=== PATIENT | male | born 1950 | race Caucasian/White ===

== ENCOUNTER 2016-08-08 15:32 | Inpatient (IN) | payer MEDICARE, MEDICAID ==
--- NOTE | 2016-08-08 16:04 | ED Physician Chart ---
Chief Complaint/HPI - Patient Information Date Seen:: 08/08/16 Time Seen:: 15:50 Allergies:: Allergies Allergy/AdvReac Type Severity Reaction Status Date / Time Penicillins [PCN] Allergy Verified 08/08/16 15:36 Vitals:: Vital Signs - 8 hr 08/08/16 08/08/16 08/08/16 15:42 15:43 15:54 Temp 98.7 F 98.7 F HR 96 96 RR 16 16 BP 138/64 138/64 138/64 O2 Sat % 98 98 Historian:: Medical Records Review:: Nurse's Note Reviewed, Old Chart Reviewed, Transfer documents Reviewed Review of Systems - Review of Systems General/Constitutional: Fever, Other (THIS PATIENT IS UNABLE TO GIVE A REVIEW OF SYSTEMS) Skin: No skin lesions, No rash, No bruising Head: No headache, No light-headedness Eyes: No loss of vision, No pain, No diplopia ENT: No earache, No nasal drainage, No sore throat, No tinnitus Neck: No neck pain, No swelling, No thyromegaly, No stiffness, No mass noted Cardio Vascular: No chest pain, No palpitations, No PND, No orthopnea, No edema Pulmonary: No SOB, No cough, No sputum, No wheezing GI: No nausea, No vomiting, No diarrhea, No pain, No melena, No hematochezia, No constipation, No hematemesis G/U: No dysuria, No frequency, No hematuria Musculoskeletal: No bone or joint pain, No back pain, No muscle pain Endocrine: No polyuria, No polydipsia Psychiatric: No prior psych history, No depression, No anxiety, No suicidal ideation Hematopoietic: No bruising, No lymphadenopathy Allergic/Immuno: No urticaria, No angioedema Neurological: No syncope, No focal symptoms, No weakness, No paresthesia, No headache, No seizure, No dizziness, No confusion, No vertigo Past Medical History - Past Medical History Obtainable: Yes Past Medical History: Dementia Family History: None Social History: Non Smoker, No Alcohol, No Drug Use, Care Facility Surgical History: None Psychiatricy History: Dementia Family Medical History - Family Member Mother History Unknown: Yes Physical Exam - Physical Examination General/Constitutional: Awake, Well-developed, well-nourished, Alert, No distress, GCS 15, Non-toxic appearing, Ambulatory Head: Atraumatic Eyes: Lids, conjuctiva normal, PERRL, EOMI Skin: Nl inspection, No rash, No skin lesions, No ecchymosis, Well hydrated, No lymphadenopathy ENMT: External ears, nose nl, Nasal exam nl, Lips, teeth, gums nl (TEETH ARE IN POOR REPAIR) Neck: Nontender, Full ROM w/o pain, No JVD, No nuchal rigidity, No bruit, No mass, No stridor Respiratory: Nl effort/Exclusion, Clear to Auscultation, No Wheeze/Rhonchi/Rales Cardio Vascular: RRR, No murmur, gallop, rubs, NL S1 S2 GI: No tenderness/rebounding/guarding, No organomegaly, No hernia, Normal BS's, Nondistended, No mass/bruits, No McBurney tenderness : No CVA tenderness Extremities: No tenderness or effusion, Full ROM, normal strength in all extremities, No edema, Normal digits & nails Other Extremities comments:: CHRONICALLY DISLOCATED LEFT SHOULDER Neuro/Psych: Alert/oriented, DTR's symmetric, Normal sensory exam, Normal motor strength, Judgement/insight normal, Mood normal, Normal gait, No focal deficits Misc: normal gait, Normal back, No paraspinal tenderness Labs/Radiology/EKG Results - Lab Results Results: Abnormal Lab Results 08/08/16 08/08/16 08/08/16 15:55 15:55 15:55 WBC 7.3 RBC 3.82 Hgb 10.7 L Hct 32.4 L MCV 84.8 MCH 28.1 MCHC Differential 33.1 RDW 16.1 Plt Count 305 MPV 7.6 Neutrophils % 63.0 Lymphocytes % 20.2 Monocytes % 13.4 H Eosinophils % 2.8 Basophils % 0.6 PT 10.5 INR 1.01 PTT (Actin FS) 25.1 L Sodium Potassium Chloride Carbon Dioxide Anion Gap BUN Creatinine Est GFR ( Amer) Est GFR (Non-Af Amer) BUN/Creatinine Ratio Glucose Calcium Total Bilirubin AST ALT Alkaline Phosphatase Troponin I Total Protein Albumin Globulin Albumin/Globulin Ratio Triglycerides 68 Cholesterol 187 LDL Cholesterol Direct 104 HDL Cholesterol 76 TSH Urine Source Urine Color Urine Clarity Urine pH Ur Specific [place] Urine Protein Urine Glucose (UA) Urine Ketones Urine Blood Urine Nitrate Urine Bilirubin Urine Urobilinogen Ur Leukocyte Esterase Urine RBC Urine WBC Ur Epithelial Cells Urine Bacteria Urine Mucus RPR 08/08/16 08/08/16 08/08/16 15:55 15:55 15:55 WBC RBC Hgb Hct MCV MCH MCHC Differential RDW Plt Count MPV Neutrophils % Lymphocytes % Monocytes % Eosinophils % Basophils % PT INR PTT (Actin FS) Sodium 136 Potassium 4.1 Chloride 107 Carbon Dioxide 25.6 Anion Gap 7.5 BUN 24 Creatinine 0.6 L Est GFR ( Amer) > 60.0 Est GFR (Non-Af Amer) > 60.0 BUN/Creatinine Ratio 40.0 Glucose 97 Calcium 9.5 Total Bilirubin 0.3 AST 19 ALT 18 Alkaline Phosphatase 90 Troponin I 0.05 Total Protein 6.6 Albumin 3.6 L Globulin 3.0 Albumin/Globulin Ratio 1.2 Triglycerides Cholesterol LDL Cholesterol Direct HDL Cholesterol TSH Urine Source Urine Color Urine Clarity Urine pH Ur Specific [place] Urine Protein Urine Glucose (UA) Urine Ketones Urine Blood Urine Nitrate Urine Bilirubin Urine Urobilinogen Ur Leukocyte Esterase Urine RBC Urine WBC Ur Epithelial Cells Urine Bacteria Urine Mucus RPR NONREACTIVE 08/08/16 08/08/16 15:55 17:00 WBC RBC Hgb Hct MCV MCH MCHC Differential RDW Plt Count MPV Neutrophils % Lymphocytes % Monocytes % Eosinophils % Basophils % PT INR PTT (Actin FS) Sodium Potassium Chloride Carbon Dioxide Anion Gap BUN Creatinine Est GFR ( Amer) Est GFR (Non-Af Amer) BUN/Creatinine Ratio Glucose Calcium Total Bilirubin AST ALT Alkaline Phosphatase Troponin I Total Protein Albumin Globulin Albumin/Globulin Ratio Triglycerides Cholesterol LDL Cholesterol Direct HDL Cholesterol TSH 0.90 Urine Source CLEAN C Urine Color YELLOW Urine Clarity CLEAR Urine pH 6.0 Ur Specific [place] 1.030 Urine Protein NEGATIVE Urine Glucose (UA) NEGATIVE Urine Ketones NEGATIVE Urine Blood NEGATIVE Urine Nitrate NEGATIVE Urine Bilirubin NEGATIVE Urine Urobilinogen 0.2 Ur Leukocyte Esterase NEGATIVE Urine RBC 0-1 Urine WBC 0-2 Ur Epithelial Cells FEW Urine Bacteria OCCASIONAL Urine Mucus FEW RPR - Radiology Results Results: CHEST X-RAY = NAD - EKG Interpretations EKG Time:: 16:18 Rate & Rhythm: 86 ,SINUS [place]: RIGHT ED Septic Shock - . Is Septic Shock (SBP<90, OR Lactate>4 mmol\L) present?: No - <6hrs of presentation: Vital Signs: Vital Signs - 8 hr 06/09/17 06/09/17 06/09/17 15:42 15:43 15:54 Temp 98.7 F 98.7 F HR 96 96 RR 16 16 BP 138/64 138/64 138/64 O2 Sat % 98 98 Reassessment (Disposition) - Reassessment Reassessment Condition:: Unchanged - Diagnosis Diagnosis:: PSYCHOSIS - Patient Disposition Discharge/Transfer:: Acute Care w/in this hosp Admitting Medical Physician:: Edmar Westfall Admitting Psych Physician:: Lissy Morgan Condition at Disposition:: Unchanged ED Discharge Plan - Patient Disposition Admit/Discharge/Transfer: Acute Care w/in this hosp Condition at Disposition: Unchanged
[2016-08-08 16:06] LABS: % BASOPHILS 0.6 % (0.0-2.0); % EOSINOPHILS 2.8 % (0.0-5.0); % LYMPHOCYTES 20.2 % (20.0-50.0); % MONOCYTES 13.4 % (2.0-10.0); HEMATOCRIT 32.4 % (39.0-49.0); HEMOGLOBIN 10.7 gm/dL (12.6-17.4); MEAN CELL VOLUME 84.8 fl (80-99); MEAN CORPUSCULAR HEMOGLOBIN 28.1 pg (27.0-31.0); MEAN CORPUSCULAR HGB CONC 33.1 pg (28.0-36.0); MEAN PLATELET VOLUME 7.6 fl; NEUTROPHILE ABSOLUTE 4.6 Th/cmm (1.8-8.0); PLATELET COUNT 305 Th/cmm (150-400); RED BLOOD COUNT 3.82 Mil/cmm (3.80-5.80); RED CELL DISTRIBUTION WIDTH 16.1 % (11.5-20.0); WHITE BLOOD COUNT 7.3 Th/cmm (4.8-10.8)
[2016-08-08 16:21] LABS: INR 1.01 (0.5-1.4); PROTHROMBIN TIME (TEST) 10.5 SECONDS (9.5-11.5)
[2016-08-08 16:24] LABS: ALB/GLOB RATIO 1.2 (1.0-1.8); ALKALINE PHOSPHATASE 90 U/L (34-104); ANION GAP 7.5 (7.0-16.0); BILIRUBIN,TOTAL 0.3 mg/dL (0.3-1.0); BUN - UREA NITROGEN 24 mg/dL (7-25); CALCIUM SERUM 9.5 mg/dL (8.6-10.3); CARBON DIOXIDE 25.6 mEq/L (21.0-31.0); CHLORIDE 107 mEq/L (98-107); CREATININE - SERUM 0.6 mg/dL (0.7-1.3); GLUCOSE 97 mg/dL (70-105); POTASSIUM SERUM 4.1 mEq/L (3.5-5.1); SGOT 19 U/L (13-39); SGPT/ALT 18 U/L (7-52); SODIUM SERUM 136 mEq/L (136-145)
[2016-08-08 16:25] LABS: CHOLESTEROL 187 mg/dL (<200); TRIGLYCERIDES 68 mg/dL (<150)
[2016-08-08 17:29] LABS: URINE BILIRUBIN NEGATIVE (NEGATIVE); URINE COLOR YELLOW; URINE GLUCOSE (UA) NEGATIVE (NEGATIVE); URINE KETONE NEGATIVE (NEGATIVE)
[2016-08-08 17:30] LABS: URINE BACTERIA OCCASIONAL /hpf (NONE SEEN); URINE BLOOD NEGATIVE (NEGATIVE); URINE EPITHELIAL CELLS FEW /lpf (FEW); URINE PROTEIN NEGATIVE (NEGATIVE); URINE RBC 0-1 /hpf (0-5); URINE UROBILINOGEN 0.2 E.U./dL (0.2 - 1.0); URINE WBC 0-2 /hpf (0-5)
[2016-08-08 18:27] VITALS: BP 111/49
[2016-08-08] MEDS ORDERED: Maalox 30 mL Cup PO PRN (18:43)
[2016-08-08] MEDS ORDERED: Magnesium Hydroxide (MOM) 30 mL UDC PO PRN (18:43)
[2016-08-09] MEDS ORDERED: Multivitamin Tab PO SCH (09:00)
--- NOTE | 2016-08-09 09:54 | Diagnostic Imaging Report ---
CHEST X-RAY: AP view INDICATION: Cough COMPARISON: None FINDINGS: Mild chronic lung changes. No focal consolidation or effusions. There is faint increase left basal density. Heart size. Atherosclerosis of the aortic arch is noted. Degenerative changes of the spine are noted. IMPRESSION: Faint increased left basal density which may be due to superimposition of bronchovascular structures. Focal infiltrate or other pathology such as a small pulmonary nodule is considered less likely. Correlation with old exams be helpful comparison. Alternatively, a short-term follow-up CT of the chest would provide for additional detail and assessment Atherosclerotic vascular disease. Final results were administered to the referring team on 08/09/2016.
[2016-08-09] MEDS ORDERED: THROAT MM PRN (14:52)
[2016-08-09] MEDS ORDERED: PHENOL MM PRN (14:52)
--- NOTE | 2016-08-09 15:41 | History & Physical ---
ADMIT DATE: 08/08/2016 CHIEF COMPLAINT: Increasing agitation. HISTORY OF PRESENT ILLNESS: This is a 66-year-old male with a history of anemia, thin built from chcf, was admitted secondary to above complaints. The patient complains of dry eyes. Denies chest pain or shortness of breath. PAST MEDICAL HISTORY: As mentioned in history present illness. PAST SURGICAL HISTORY: Status post abdominal surgery ____. ALLERGIES: PENICILLIN. MEDICATIONS: Vitamin C, Motrin, Norvasc, multivitamins, zinc, Ambien. FAMILY HISTORY: Noncontributory. SOCIAL HISTORY: The patient is an avid smoker and drinker. Denies intravenous drug use. The patient ____ without any children. REVIEW OF SYSTEMS: GENERAL: The patient complains of not feeling well. HEENT: No blurred vision or pain. LUNGS: ____ COPD or asthma. The patient ____ smoker. HEART: The patient denies hypertension or coronary artery disease. ABDOMEN: No nausea, vomiting or pain. GENITOURINARY: The patient denies increased frequency or dysuria. NEUROLOGIC: No headache, seizure or syncope. PSYCHIATRIC: Stable. PHYSICAL EXAMINATION: VITAL SIGNS: Blood pressure ____/64, respirations 18, pulse 75, temperature 97.4. GENERAL: Elderly male, appears stated age, seen with ____. NECK: Supple. No mass. LUNGS: Equal breath sounds, otherwise clear to auscultation. HEART: Regular rate and rhythm without appreciable murmurs. ABDOMEN: Soft, nontender. EXTREMITIES: No clubbing, cyanosis. Positive excoriations. NEUROLOGIC: Limited. LABORATORY DATA: Noted WBC 7.8, hemoglobin 10.7, platelets 305. INR 1.01. Sodium 136, potassium 4.1, BUN 24, creatinine 0.6, albumin ____. UA essentially negative. RPR nonreactive. ASSESSMENT AND PLAN: Anemia, low albumin, mild protein-calorie malnutrition, sore throat, gait instability, thin built, dry eyes. ____ hemoglobin and hematocrit. We will provide the patient with ____. We will place the patient on fall precaution. We will provide artificial tears ____. We will continue to follow. Case was discussed with the patient as well as nursing staff. JOB# [id number]
[2016-08-09] MEDS: Artificial Tear Ophth Oint 3.5 Gm Tube EACH EYE SCH (16:19)
--- NOTE | 2016-08-10 04:41 | Admit Criteria Form ---
Admit Criteria Forms - Admit Criteria Diagnosis: PSYCHIATRIC DISORDERS Clinical Indications for Inpatient Care (Place 'X' for any and all applicable criteria): Ongoing inpatient care may be needed for ANY ONE of the following(1)(2)(3)(4)(6) (7)(8): [ ]I. Danger to self or others not manageable at lower level of care. [ ]II. Grave disability (eg, inability to perform self care necessary at lower level of care) [ ]III. Agitation or inappropriate behavior interfering with care for primary condition (eg, attempting to discontinue lines or drains prematurely, unable to cooperate with respiratory care) [X]IV. Severe disability or disorder indicated by ALL of the following: [X]a) Severe behavioral health disorder-related symptoms or condition indicated by ANY ONE of the following: [ ]i) Severe problem with cognition, memory, judgment, or impulse control [X]ii) Severe clinical manifestations (eg, hallucinations, delusions, other acute psychotic symptoms, lloyd, extreme agitation or anxiety) [X]b) Patient management at lower level of care is not feasible until acute intervention or modification is initiated. Extended stay beyond goal length of stay for the primary condition may be indicated when ANY ONE of the following is present: (1)(2)(3)(4): [ ]a) Patient is a danger to self or others and not manageable at lower level of care. [ ]b) Behavior crisis management, including physical or chemical restraints, is required and is not available at a lower level of care. [ ]c) Behavioral symptoms (e.g., agitation, somnolence, inappropriate behavior) are present, and are not manageable at a lower level of care. [ ]d) Patient cannot understand follow-up treatment and crisis plan. [ ]e) Provider and supports are not sufficiently available at lower level of care. [ ]f) Patient cannot participate (e.g., verify absence of plan for harm) and is in needed of monitoring. The original [facility] content created by [facility] has been revised. The portions of the content which have been revised are identified through the use of italic text or in bold, and [facility] has neither reviewed nor approved the modified material. All other unmodified content is copyright [facility]. Please see references footnoted in the original [facility] edition 2016
--- NOTE | 2016-08-10 06:32 | Consultation ---
DATE OF CONSULTATION: 08/09/[address] Chowdhury covering for Dr. Morgan This is an initial psychiatric evaluation. IDENTIFYING DATA: This is a 66-year-old male living in a convalescent home. REASON FOR JUSTIFICATION FOR ADMISSION: Paranoia. HISTORY OF PRESENT ILLNESS: The patient is a 66-year-old male who reports that he has a history of schizophrenia. Reports he has been noncompliant with the medications, reported that he has been feeling also that people are tracking him, talking about him, perseverating about him and he is still very overwhelmed that people were talking about him and that he feels very angry that he has been not able to control himself and how to defend himself. PAST PSYCHIATRIC HISTORY: History of schizophrenia. PAST MEDICAL HISTORY: Includes history of sacral ulcers, history of perineal area ____ left foot ____ laceration; right foot lateral laceration, knee ____, also has a history of anemia. CURRENT MEDICATIONS: Noncompliant with medication, unclear what other medications he has been on. ALLERGIES TO MEDICATIONS: PENICILLIN. LABORATORY DATA: Unremarkable. U-tox negative. FAMILY PSYCHIATRIC HISTORY: Unknown. SOCIAL HISTORY: Currently lives in a custodial. Denies any current alcohol or drug use. MENTAL STATUS EXAMINATION: In his room, he is calm and cooperative. Speech is difficult to understand, but redirectable. He reported auditory hallucinations, paranoia. Limited insight, judgment and impulse control. Awake, alert x 3. ASSESSMENT AND PLAN: The patient is a 66-year-old male with a previous history of schizophrenia, noncompliant with medications, presented disorganized and paranoid. We would initiate Seroquel at 50 mg at bedtime to target the patient's insomnia and also paranoia. We will continue obtaining more collateral based on information. ESTIMATED LENGTH OF STAY: Between 5-10 days. DISCHARGE CRITERIA: The patient demonstrate euthymic mood, no suicidal or homicidal ideation, no psychosis, no delusions ____ with good [id number] interaction. JOB# [id number]
[2016-08-10] MEDS: Multivitamin w/ Minerals Tab PO SCH (08:11)
[2016-08-10] MEDS: Artificial Tear Ophth Oint 3.5 Gm Tube EACH EYE SCH ×2 (08:15→16:25)
--- NOTE | 2016-08-10 14:11 | Internal Medicine Prog Note ---
Internal Medicine Subjective - Subjective Patient seen and examined:: with staff, chart reviewed Patient is:: awake, verbal, interactive Patient Complaints of:: congestion Per staff patient is:: no adverse event, no episodes of fall, noncompliant, confused Internal Medicine Objective - Results Result Diagrams: 08/08/16 15:55 08/08/16 15:55 Recent Labs: Laboratory Last Values WBC 7.3 Th/cmm (4.8-10.8) 08/08/16 15:55 RBC 3.82 Mil/cmm (3.80-5.80) 08/08/16 15:55 Hgb 10.7 gm/dL (12.6-17.4) L 08/08/16 15:55 Hct 32.4 % (39.0-49.0) L 08/08/16 15:55 MCV 84.8 fl (80-99) 08/08/16 15:55 MCH 28.1 pg (27.0-31.0) 08/08/16 15:55 MCHC Differential 33.1 pg (28.0-36.0) 08/08/16 15:55 RDW 16.1 % (11.5-20.0) 08/08/16 15:55 Plt Count 305 Th/cmm (150-400) 08/08/16 15:55 MPV 7.6 fl 08/08/16 15:55 Neutrophils % 63.0 % (40.0-80.0) 08/08/16 15:55 Lymphocytes % 20.2 % (20.0-50.0) 08/08/16 15:55 Monocytes % 13.4 % (2.0-10.0) H 08/08/16 15:55 Eosinophils % 2.8 % (0.0-5.0) 08/08/16 15:55 Basophils % 0.6 % (0.0-2.0) 08/08/16 15:55 PT 10.5 SECONDS (9.5-11.5) 08/08/16 15:55 INR 1.01 (0.5-1.4) 08/08/16 15:55 PTT (Actin FS) 25.1 SECONDS (26.0-38.0) L 08/08/16 15:55 Sodium 136 mEq/L (136-145) 08/08/16 15:55 Potassium 4.1 mEq/L (3.5-5.1) 08/08/16 15:55 Chloride 107 mEq/L (98-107) 08/08/16 15:55 Carbon Dioxide 25.6 mEq/L (21.0-31.0) 08/08/16 15:55 Anion Gap 7.5 (7.0-16.0) 08/08/16 15:55 BUN 24 mg/dL (7-25) 08/08/16 15:55 Creatinine 0.6 mg/dL (0.7-1.3) L 08/08/16 15:55 Est GFR ( Amer) > 60.0 ml/min (>90) 08/08/16 15:55 Est GFR (Non-Af Amer) > 60.0 ml/min 08/08/16 15:55 BUN/Creatinine Ratio 40.0 08/08/16 15:55 Glucose 97 mg/dL (70-105) 08/08/16 15:55 Calcium 9.5 mg/dL (8.6-10.3) 08/08/16 15:55 Total Bilirubin 0.3 mg/dL (0.3-1.0) 08/08/16 15:55 AST 19 U/L (13-39) 08/08/16 15:55 ALT 18 U/L (7-52) 08/08/16 15:55 Alkaline Phosphatase 90 U/L (34-104) 08/08/16 15:55 Troponin I 0.05 ng/mL (0.01-0.05) 08/08/16 15:55 Total Protein 6.6 gm/dL (6.0-8.3) 08/08/16 15:55 Albumin 3.6 gm/dL (4.2-5.5) L 08/08/16 15:55 Globulin 3.0 gm/dL 08/08/16 15:55 Albumin/Globulin Ratio 1.2 (1.0-1.8) 08/08/16 15:55 Triglycerides 68 mg/dL (<150) 08/08/16 15:55 Cholesterol 187 mg/dL (<200) 08/08/16 15:55 LDL Cholesterol Direct 104 mg/dL (75-193) 08/08/16 15:55 HDL Cholesterol 76 mg/dL (23-92) 08/08/16 15:55 TSH 0.90 uIU/ml (0.34-5.60) 08/08/16 15:55 Urine Source CLEAN C 08/08/16 17:00 Urine Color YELLOW 08/08/16 17:00 Urine Clarity CLEAR (CLEAR) 08/08/16 17:00 Urine pH 6.0 08/08/16 17:00 Ur Specific [place] 1.030 (1.005-1.030) 08/08/16 17:00 Urine Protein NEGATIVE mg/dL (NEGATIVE) 08/08/16 17:00 Urine Glucose (UA) NEGATIVE mg/dL (NEGATIVE) 08/08/16 17:00 Urine Ketones NEGATIVE mg/dL (NEGATIVE) 08/08/16 17:00 Urine Blood NEGATIVE (NEGATIVE) 08/08/16 17:00 Urine Nitrate NEGATIVE (NEGATIVE) 08/08/16 17:00 Urine Bilirubin NEGATIVE (NEGATIVE) 08/08/16 17:00 Urine Urobilinogen 0.2 E.U./dL (0.2 - 1.0) 08/08/16 17:00 Ur Leukocyte Esterase NEGATIVE (NEGATIVE) 08/08/16 17:00 Urine RBC 0-1 /hpf (0-5) 08/08/16 17:00 Urine WBC 0-2 /hpf (0-5) 08/08/16 17:00 Ur Epithelial Cells FEW /lpf (FEW) 08/08/16 17:00 Urine Bacteria OCCASIONAL /hpf (NONE SEEN) 08/08/16 17:00 Urine Mucus FEW /lpf (FEW) 08/08/16 17:00 RPR NONREACTIVE (NONREACTIVE) 08/08/16 15:55 - Physical Exam Vitals and I&O: Vital Signs Temp 98.1 F 08/10/16 06:47 Pulse 62 08/10/16 12:58 Resp 20 08/10/16 12:58 BP 115/59 08/10/16 06:47 Pulse Ox 97 08/10/16 06:47 Intake & Output 08/09/16 08/10/16 08/10/16 18:59 06:59 18:59 Intake Total 1000 720 Balance 1000 720 Intake: Oral 1000 720 Other: # Voids 4 1 # Bowel Movements 1 Stool Characteristics Soft Formed Active Medications: Current Medications Al Hydrox/Mg Hydrox/Simethicone (Maalox) 30 ml PO Q6H PRN PRN Reason: Dyspepsia Stop: 10/07/16 18:42 Artificial Tears (Lubrifresh Ophth Oint) 1 appl EACH EYE BID MAURO Stop: 10/08/16 16:59 Last Admin: 08/10/16 08:15 Dose: 1 appl Ascorbic Acid (Vitamin C) 500 mg PO DAILY MAURO Stop: 10/08/16 08:59 Last Admin: 08/10/16 08:10 Dose: 500 mg Benzocaine/Menthol (Cepacol) 1 agustin MM Q4HR PRN PRN Reason: Sore Throat Stop: 10/08/16 15:09 Last Admin: 08/10/16 09:51 Dose: 1 agustin Docusate Sodium (Colace) 100 mg PO DAILY MAURO Stop: 10/08/16 08:59 Last Admin: 08/10/16 08:11 Dose: 100 mg Ibuprofen (Motrin) 600 mg PO TID PRN PRN Reason: Pain (Mild) Stop: 10/07/16 18:38 Last Admin: 08/08/16 21:58 Dose: 600 mg Lorazepam (Ativan) 0.5 mg PO Q4HR PRN; Protocol PRN Reason: Anxiety Stop: 10/07/16 18:50 Last Admin: 08/09/16 16:20 Dose: 0.5 mg Magnesium Hydroxide (Milk Of Magnesia) 30 ml PO HS PRN PRN Reason: Constipation Stop: 10/07/16 18:42 Quetiapine Fumarate (Seroquel) 50 mg PO HS MAURO PRN Reason: Protocol Stop: 10/09/16 20:59 Zinc Sulfate (Zinc Sulfate) 220 mg PO DAILY MAURO Stop: 10/08/16 08:59 Last Admin: 08/10/16 08:10 Dose: 220 mg Zolpidem Tartrate (Ambien) 5 mg PO HS PRN PRN Reason: Insomnia Stop: 10/07/16 18:38 General: demented HEENT: NC/AT, PERRLA Neck: Supple, No JVD Lungs: CTAB Cardiovascular: RRR, Normal S1, Normal S2 Abdomen: soft non-tender, globular Extremities: pedal pulses Neurological: no change, disorganized, unable to follow command Internal Medicine Assmt/Plan - Assessment Assessment: Anemia, low albumin, mild protein-calorie malnutrition, sore throat, gait instability, thin built, dry eyes mrsa nare, possible bacteremia, possible contamination - Plan Plan: will start on bactroban cont on nasids artificial tears nutritional support yee cifuentes
--- NOTE | 2016-08-11 00:02 | Progress Notes ---
DATE: 08/10/2016 SUBJECTIVE: The patient was seen and evaluated. The patient's chart was reviewed. Overnight, the patient's staff has noted that the patient still at times finds talking to himself. Today on [id number] evaluation, the patient reports that the voices are still persistent. He denies any side effects of the medications. MENTAL STATUS EXAMINATION: Still endorsing auditory hallucinations, disorganized thought processes. poor insight, judgment, and impulse control. ASSESSMENT AND PLAN: The patient is a 66-year-old male with history of schizophrenia, tolerating the recent addition of Seroquel 25 mg. At this point, he tolerating well without any complications. We will continue increasing to 50 mg to target the patient, still residual psychotic symptoms that impaired his insight and judgment. [facility]# [id number]
[2016-08-11] MEDS: Artificial Tear Ophth Oint 3.5 Gm Tube EACH EYE SCH ×2 (08:23→17:30)
[2016-08-11] MEDS: Multivitamin w/ Minerals Tab PO SCH (08:24)
--- NOTE | 2016-08-11 13:12 | Internal Medicine Prog Note ---
Internal Medicine Subjective - Subjective Patient seen and examined:: with staff, chart reviewed Patient is:: awake, verbal, interactive Per staff patient is:: no adverse event, noncompliant, confused Internal Medicine Objective - Results Result Diagrams: 08/08/16 15:55 08/08/16 15:55 Recent Labs: Laboratory Last Values WBC 7.3 Th/cmm (4.8-10.8) 08/08/16 15:55 RBC 3.82 Mil/cmm (3.80-5.80) 08/08/16 15:55 Hgb 10.7 gm/dL (12.6-17.4) L 08/08/16 15:55 Hct 32.4 % (39.0-49.0) L 08/08/16 15:55 MCV 84.8 fl (80-99) 08/08/16 15:55 MCH 28.1 pg (27.0-31.0) 08/08/16 15:55 MCHC Differential 33.1 pg (28.0-36.0) 08/08/16 15:55 RDW 16.1 % (11.5-20.0) 08/08/16 15:55 Plt Count 305 Th/cmm (150-400) 08/08/16 15:55 MPV 7.6 fl 08/08/16 15:55 Neutrophils % 63.0 % (40.0-80.0) 08/08/16 15:55 Lymphocytes % 20.2 % (20.0-50.0) 08/08/16 15:55 Monocytes % 13.4 % (2.0-10.0) H 08/08/16 15:55 Eosinophils % 2.8 % (0.0-5.0) 08/08/16 15:55 Basophils % 0.6 % (0.0-2.0) 08/08/16 15:55 PT 10.5 SECONDS (9.5-11.5) 08/08/16 15:55 INR 1.01 (0.5-1.4) 08/08/16 15:55 PTT (Actin FS) 25.1 SECONDS (26.0-38.0) L 08/08/16 15:55 Sodium 136 mEq/L (136-145) 08/08/16 15:55 Potassium 4.1 mEq/L (3.5-5.1) 08/08/16 15:55 Chloride 107 mEq/L (98-107) 08/08/16 15:55 Carbon Dioxide 25.6 mEq/L (21.0-31.0) 08/08/16 15:55 Anion Gap 7.5 (7.0-16.0) 08/08/16 15:55 BUN 24 mg/dL (7-25) 08/08/16 15:55 Creatinine 0.6 mg/dL (0.7-1.3) L 08/08/16 15:55 Est GFR ( Amer) > 60.0 ml/min (>90) 08/08/16 15:55 Est GFR (Non-Af Amer) > 60.0 ml/min 08/08/16 15:55 BUN/Creatinine Ratio 40.0 08/08/16 15:55 Glucose 97 mg/dL (70-105) 08/08/16 15:55 Calcium 9.5 mg/dL (8.6-10.3) 08/08/16 15:55 Total Bilirubin 0.3 mg/dL (0.3-1.0) 08/08/16 15:55 AST 19 U/L (13-39) 08/08/16 15:55 ALT 18 U/L (7-52) 08/08/16 15:55 Alkaline Phosphatase 90 U/L (34-104) 08/08/16 15:55 Troponin I 0.05 ng/mL (0.01-0.05) 08/08/16 15:55 Total Protein 6.6 gm/dL (6.0-8.3) 08/08/16 15:55 Albumin 3.6 gm/dL (4.2-5.5) L 08/08/16 15:55 Globulin 3.0 gm/dL 08/08/16 15:55 Albumin/Globulin Ratio 1.2 (1.0-1.8) 08/08/16 15:55 Triglycerides 68 mg/dL (<150) 08/08/16 15:55 Cholesterol 187 mg/dL (<200) 08/08/16 15:55 LDL Cholesterol Direct 104 mg/dL (75-193) 08/08/16 15:55 HDL Cholesterol 76 mg/dL (23-92) 08/08/16 15:55 TSH 0.90 uIU/ml (0.34-5.60) 08/08/16 15:55 Urine Source CLEAN C 08/08/16 17:00 Urine Color YELLOW 08/08/16 17:00 Urine Clarity CLEAR (CLEAR) 08/08/16 17:00 Urine pH 6.0 08/08/16 17:00 Ur Specific [place] 1.030 (1.005-1.030) 08/08/16 17:00 Urine Protein NEGATIVE mg/dL (NEGATIVE) 08/08/16 17:00 Urine Glucose (UA) NEGATIVE mg/dL (NEGATIVE) 08/08/16 17:00 Urine Ketones NEGATIVE mg/dL (NEGATIVE) 08/08/16 17:00 Urine Blood NEGATIVE (NEGATIVE) 08/08/16 17:00 Urine Nitrate NEGATIVE (NEGATIVE) 08/08/16 17:00 Urine Bilirubin NEGATIVE (NEGATIVE) 08/08/16 17:00 Urine Urobilinogen 0.2 E.U./dL (0.2 - 1.0) 08/08/16 17:00 Ur Leukocyte Esterase NEGATIVE (NEGATIVE) 08/08/16 17:00 Urine RBC 0-1 /hpf (0-5) 08/08/16 17:00 Urine WBC 0-2 /hpf (0-5) 08/08/16 17:00 Ur Epithelial Cells FEW /lpf (FEW) 08/08/16 17:00 Urine Bacteria OCCASIONAL /hpf (NONE SEEN) 08/08/16 17:00 Urine Mucus FEW /lpf (FEW) 08/08/16 17:00 RPR NONREACTIVE (NONREACTIVE) 08/08/16 15:55 - Physical Exam Vitals and I&O: Vital Signs Temp 97.5 F 08/11/16 07:03 Pulse 69 08/11/16 07:03 Resp 18 08/11/16 07:03 BP 91/52 08/11/16 07:03 Pulse Ox 95 08/11/16 07:03 Intake & Output 08/10/16 08/11/16 08/11/16 18:59 06:59 18:59 Intake Total 1000 120 0 Balance 1000 120 0 Intake: Oral 1000 120 0 Other: # Voids 4 3 3 # Bowel Movements 1 0 0 Stool Characteristics Soft Formed Active Medications: Current Medications Al Hydrox/Mg Hydrox/Simethicone (Maalox) 30 ml PO Q6H PRN PRN Reason: Dyspepsia Stop: 10/07/16 18:42 Artificial Tears (Lubrifresh Ophth Oint) 1 appl EACH EYE BID MAURO Stop: 10/08/16 16:59 Last Admin: 08/11/16 08:23 Dose: 1 appl Ascorbic Acid (Vitamin C) 500 mg PO DAILY MAURO Stop: 10/08/16 08:59 Last Admin: 08/11/16 08:24 Dose: 500 mg Benzocaine/Menthol (Cepacol) 1 agustin MM Q4HR PRN PRN Reason: Sore Throat Stop: 10/08/16 15:09 Last Admin: 08/10/16 16:25 Dose: 1 agustin Docusate Sodium (Colace) 100 mg PO DAILY MAURO Stop: 10/08/16 08:59 Last Admin: 08/11/16 08:24 Dose: 100 mg Ibuprofen (Motrin) 600 mg PO TID PRN PRN Reason: Pain (Mild) Stop: 10/07/16 18:38 Last Admin: 08/11/16 12:45 Dose: 600 mg Lorazepam (Ativan) 0.5 mg PO Q4HR PRN; Protocol PRN Reason: Anxiety Stop: 10/07/16 18:50 Last Admin: 08/10/16 16:25 Dose: 0.5 mg Magnesium Hydroxide (Milk Of Magnesia) 30 ml PO HS PRN PRN Reason: Constipation Stop: 10/07/16 18:42 Mupirocin (Bactroban Oint) 1 appl TP BID MAURO Stop: 10/09/16 16:59 Last Admin: 08/11/16 08:24 Dose: 1 appl Quetiapine Fumarate (Seroquel) 50 mg PO HS MAURO PRN Reason: Protocol Stop: 10/09/16 20:59 Last Admin: 08/10/16 20:52 Dose: 50 mg Zinc Sulfate (Zinc Sulfate) 220 mg PO DAILY MAURO Stop: 10/08/16 08:59 Last Admin: 08/11/16 08:24 Dose: 220 mg Zolpidem Tartrate (Ambien) 5 mg PO HS PRN PRN Reason: Insomnia Stop: 10/07/16 18:38 General: demented HEENT: NC/AT, PERRLA Neck: Supple, No JVD Lungs: CTAB Cardiovascular: RRR, Normal S1, Normal S2 Abdomen: soft non-tender, globular, positive bowel sound Extremities: excoriation, contracture Neurological: no change Internal Medicine Assmt/Plan - Assessment Assessment: Anemia, low albumin, mild protein-calorie malnutrition, sore throat, gait instability, thin built, dry eyes mrsa nare, possible bacteremia, possible contamination - Plan Plan: will start on bactroban cont on nasids artificial tears nutritional support yee cifuentes
--- NOTE | 2016-08-11 22:19 | Progress Notes ---
DATE: 08/11/2016 Case was discussed with staff of the patient, reviewed records. This is a 66-year-old male who was admitted on 08/08/2016, from [facility]. He was paranoid with a history of schizophrenia, has been noncompliant with medications. He is feeling also that people are tracking him, talking about him himself. He was overwhelmed. He is still very angry that he has not been able to control himself and how to defend himself. The patient so far has been compliant with the medication with no side effects, seen by Dr. Chowdhury, who has initiated his medication with this current medication being Seroquel 50 mg at bedtime. He is not sleeping well. I will be increasing the Seroquel to 100 mg at bedtime, and so far no side effects, no sedation, no nausea, and no extrapyramidal symptoms. His blood culture was positive for Gram positive cocci and Staph. MRSA was positive. He was started on Bactroban. Urinalysis was normal. TSH within normal range. RPR is nonreactive. CBC with low hemoglobin and low hematocrit and high monocyte. Lipid panel was within normal range. So, I am increasing the Seroquel to 300 mg at bedtime. He said he used to be on Zyprexa, so I will give the Seroquel more time before changing it and will continue to work with the patient in group therapy, milieu therapy, and adjust medications as needed. JOB# [id number]
[2016-08-12] MEDS: Multivitamin w/ Minerals Tab PO SCH (08:54)
[2016-08-12] MEDS: Artificial Tear Ophth Oint 3.5 Gm Tube EACH EYE SCH ×2 (08:54→16:49)
--- NOTE | 2016-08-12 14:56 | Internal Medicine Prog Note ---
Internal Medicine Subjective - Subjective Patient seen and examined:: with staff, chart reviewed Patient is:: awake, verbal, interactive Per staff patient is:: no adverse event, no episodes of fall, eating well, noncompliant, confused Internal Medicine Objective - Results Result Diagrams: 08/08/16 15:55 08/08/16 15:55 Recent Labs: Laboratory Last Values WBC 7.3 Th/cmm (4.8-10.8) 08/08/16 15:55 RBC 3.82 Mil/cmm (3.80-5.80) 08/08/16 15:55 Hgb 10.7 gm/dL (12.6-17.4) L 08/08/16 15:55 Hct 32.4 % (39.0-49.0) L 08/08/16 15:55 MCV 84.8 fl (80-99) 08/08/16 15:55 MCH 28.1 pg (27.0-31.0) 08/08/16 15:55 MCHC Differential 33.1 pg (28.0-36.0) 08/08/16 15:55 RDW 16.1 % (11.5-20.0) 08/08/16 15:55 Plt Count 305 Th/cmm (150-400) 08/08/16 15:55 MPV 7.6 fl 08/08/16 15:55 Neutrophils % 63.0 % (40.0-80.0) 08/08/16 15:55 Lymphocytes % 20.2 % (20.0-50.0) 08/08/16 15:55 Monocytes % 13.4 % (2.0-10.0) H 08/08/16 15:55 Eosinophils % 2.8 % (0.0-5.0) 08/08/16 15:55 Basophils % 0.6 % (0.0-2.0) 08/08/16 15:55 PT 10.5 SECONDS (9.5-11.5) 08/08/16 15:55 INR 1.01 (0.5-1.4) 08/08/16 15:55 PTT (Actin FS) 25.1 SECONDS (26.0-38.0) L 08/08/16 15:55 Sodium 136 mEq/L (136-145) 08/08/16 15:55 Potassium 4.1 mEq/L (3.5-5.1) 08/08/16 15:55 Chloride 107 mEq/L (98-107) 08/08/16 15:55 Carbon Dioxide 25.6 mEq/L (21.0-31.0) 08/08/16 15:55 Anion Gap 7.5 (7.0-16.0) 08/08/16 15:55 BUN 24 mg/dL (7-25) 08/08/16 15:55 Creatinine 0.6 mg/dL (0.7-1.3) L 08/08/16 15:55 Est GFR ( Amer) > 60.0 ml/min (>90) 08/08/16 15:55 Est GFR (Non-Af Amer) > 60.0 ml/min 08/08/16 15:55 BUN/Creatinine Ratio 40.0 08/08/16 15:55 Glucose 97 mg/dL (70-105) 08/08/16 15:55 Calcium 9.5 mg/dL (8.6-10.3) 08/08/16 15:55 Total Bilirubin 0.3 mg/dL (0.3-1.0) 08/08/16 15:55 AST 19 U/L (13-39) 08/08/16 15:55 ALT 18 U/L (7-52) 08/08/16 15:55 Alkaline Phosphatase 90 U/L (34-104) 08/08/16 15:55 Troponin I 0.05 ng/mL (0.01-0.05) 08/08/16 15:55 Total Protein 6.6 gm/dL (6.0-8.3) 08/08/16 15:55 Albumin 3.6 gm/dL (4.2-5.5) L 08/08/16 15:55 Globulin 3.0 gm/dL 08/08/16 15:55 Albumin/Globulin Ratio 1.2 (1.0-1.8) 08/08/16 15:55 Triglycerides 68 mg/dL (<150) 08/08/16 15:55 Cholesterol 187 mg/dL (<200) 08/08/16 15:55 LDL Cholesterol Direct 104 mg/dL (75-193) 08/08/16 15:55 HDL Cholesterol 76 mg/dL (23-92) 08/08/16 15:55 TSH 0.90 uIU/ml (0.34-5.60) 08/08/16 15:55 Urine Source CLEAN C 08/08/16 17:00 Urine Color YELLOW 08/08/16 17:00 Urine Clarity CLEAR (CLEAR) 08/08/16 17:00 Urine pH 6.0 08/08/16 17:00 Ur Specific [place] 1.030 (1.005-1.030) 08/08/16 17:00 Urine Protein NEGATIVE mg/dL (NEGATIVE) 08/08/16 17:00 Urine Glucose (UA) NEGATIVE mg/dL (NEGATIVE) 08/08/16 17:00 Urine Ketones NEGATIVE mg/dL (NEGATIVE) 08/08/16 17:00 Urine Blood NEGATIVE (NEGATIVE) 08/08/16 17:00 Urine Nitrate NEGATIVE (NEGATIVE) 08/08/16 17:00 Urine Bilirubin NEGATIVE (NEGATIVE) 08/08/16 17:00 Urine Urobilinogen 0.2 E.U./dL (0.2 - 1.0) 08/08/16 17:00 Ur Leukocyte Esterase NEGATIVE (NEGATIVE) 08/08/16 17:00 Urine RBC 0-1 /hpf (0-5) 08/08/16 17:00 Urine WBC 0-2 /hpf (0-5) 08/08/16 17:00 Ur Epithelial Cells FEW /lpf (FEW) 08/08/16 17:00 Urine Bacteria OCCASIONAL /hpf (NONE SEEN) 08/08/16 17:00 Urine Mucus FEW /lpf (FEW) 08/08/16 17:00 RPR NONREACTIVE (NONREACTIVE) 08/08/16 15:55 - Physical Exam Vitals and I&O: Vital Signs Temp 97.6 F 08/12/16 06:54 Pulse 57 08/12/16 12:04 Resp 20 08/12/16 12:04 BP 134/67 08/12/16 06:54 Pulse Ox 98 08/12/16 06:54 Intake & Output 08/11/16 08/12/16 08/12/16 18:59 06:59 18:59 Intake Total 1800 240 Balance 1800 240 Weight (lbs) 62.278 kg Intake: Oral 1800 240 Other: # Voids 4 3 # Bowel Movements 1 0 Active Medications: Current Medications Al Hydrox/Mg Hydrox/Simethicone (Maalox) 30 ml PO Q6H PRN PRN Reason: Dyspepsia Stop: 10/07/16 18:42 Artificial Tears (Lubrifresh Ophth Oint) 1 appl EACH EYE BID MAURO Stop: 10/08/16 16:59 Last Admin: 08/12/16 08:54 Dose: 1 appl Ascorbic Acid (Vitamin C) 500 mg PO DAILY MAURO Stop: 10/08/16 08:59 Last Admin: 08/12/16 08:54 Dose: 500 mg Benzocaine/Menthol (Cepacol) 1 agustin MM Q4HR PRN PRN Reason: Sore Throat Stop: 10/08/16 15:09 Last Admin: 08/10/16 16:25 Dose: 1 agustin Docusate Sodium (Colace) 100 mg PO DAILY MAURO Stop: 10/08/16 08:59 Last Admin: 08/12/16 08:54 Dose: 100 mg Ibuprofen (Motrin) 600 mg PO TID PRN PRN Reason: Pain (Mild) Stop: 10/07/16 18:38 Last Admin: 08/12/16 05:01 Dose: 600 mg Lorazepam (Ativan) 0.5 mg PO Q4HR PRN; Protocol PRN Reason: Anxiety Stop: 10/07/16 18:50 Last Admin: 08/10/16 16:25 Dose: 0.5 mg Magnesium Hydroxide (Milk Of Magnesia) 30 ml PO HS PRN PRN Reason: Constipation Stop: 10/07/16 18:42 Mupirocin (Bactroban Oint) 1 appl TP BID MAURO Stop: 10/09/16 16:59 Last Admin: 08/12/16 08:54 Dose: 1 appl Quetiapine Fumarate (Seroquel) 150 mg PO HS MAURO PRN Reason: Protocol Stop: 10/11/16 20:59 Zinc Sulfate (Zinc Sulfate) 220 mg PO DAILY MAURO Stop: 10/08/16 08:59 Last Admin: 08/12/16 08:54 Dose: 220 mg Zolpidem Tartrate (Ambien) 5 mg PO HS PRN PRN Reason: Insomnia Stop: 10/07/16 18:38 General: demented HEENT: NC/AT, PERRLA Neck: Supple, No JVD Lungs: CTAB Cardiovascular: RRR, Normal S1, Normal S2 Abdomen: soft non-tender, globular Extremities: excoriation Neurological: no change Internal Medicine Assmt/Plan - Assessment Assessment: Anemia, low albumin, mild protein-calorie malnutrition, sore throat, gait instability, thin built, dry eyes mrsa nare, possible bacteremia, possible contamination - Plan Plan: will start on bactroban cont on nasids artificial tears nutritional support yee rn Nutritional Asmnt/Malnutr-PDOC - Dietary Evaluation Malnutrition Findings (Please click <Entered> for more info): Nutritional Asmnt/Malnutrition Start: 08/12/16 12: 24 Text: Status: Complete Freq: Document 08/12/16 12:24 GSUN (Rec: 08/12/16 12:47 [email or web address] [id number]) Nutritional Asmnt/Malnutrition Patient General Information Nutritional Screening Moderate Risk Screening Diagnosis Paranoia, schizophrenia Pertinent Medical Hx/Surgical Hx Anemia, thin built, smoker, drinker, mild protein calorie malnutrition, schizophrenia Subjective Information 66 year old male from [facility]. Pt was talkative, questionable historian, difficult to understand, rambled on. Pt report UBW 128lb, CBW via bedscale 137.3lb. Pt appeared overall thin, moderate wasting to temporals, chest, clavicles. Pt stated he is always hungry. Pt with few teeth intact, complained of food being pureed. RD explained current diet order to be ground. Pt stated he tolerated hamburger and crackers at [facility] without difficulties. Diet order from [facility]: mech soft , finely chopped, KB. Avg PO intake 83% past 3 days, meeting nutritional needs. Current Diet Order/ Nutrition Support Mech soft ground, KB Pertinent Medications Vitamin C, Colace, MOM, Seroquel, Zinc Sulfate Pertinent Labs Reviewed. Nutritional Hx/Data Height 1.83 m Height (Calculated Centimeters) 182.9 Current Weight (lbs) 62.46 kg Weight (Calculated Kilograms) 62.5 Weight (Calculated Grams) 11672.7 Usual body Weight (lbs) 128 % [place] Body Weight 178 Weight Status Underweight GI Symptoms Food Allergies No Usual diet at home [facility]: mech soft , finely chopped, KB Skin Integrity/Comment: Devin Aggarwal. hairspring vibrator: buttock potential pressure area. Current %PO Good (75-100%) Estimated Nutritional Goals Calories/Kcals/Kg IBW 178lb/80.9kg Kcals Calculated 2022-2427kcal (25-30kcal/kg) Protein g/kg: IBW Protein Calculated 81g (1g/kg) Fluid: ml 2022-2427ml (1ml/kcal) Nutritional Problem 1. Problem Problem Underweight related to Etiology unknown etiology, energy imbalance aeb Signs/Symptoms: BMI 18.6, BMI 17.4 using pt report UBW, moderate fat/ muscle depletion, thin built and mild protein calorie malnutrition noted in H&P Intervention/Recommendation Comments 1. Continue with [facility] ground KB diet. Pt expressed disatisfaction with pureed meals. RD explained current ground diet order. Pt noted with few teeth intact. Diet order at [facility]: [facility] soft, finely chopped, KB . 2. Recommend Boost BID for additional kcal and prot, promote weight gain. Expected Outcomes/Goals Expected Outcomes/Goals 1. PO intake to meet 100% of estimated nutritional needs. 2. Weight trend towards IBW. Physician Parameters for PEM Serum Albumin (g/dl) 3.5 - 5.0 (Normal)
--- NOTE | 2016-08-13 01:18 | Progress Notes ---
DATE: 08/12/2016 Case was discussed with staff of the patient, reviewed records. The patient continues to be irritable. He did not sleep well last night, continues to have poor insight, continues to be unpredictable, impulsive, needing redirection. I did increase his Seroquel yesterday, I will make further changes today to 150 mg a day to help him with sleep and his psychotic symptoms, and . We will continue to work with the patient in group therapy, milieu therapy, and adjust the medication as needed. JOB# [id number]
[2016-08-13] MEDS: Artificial Tear Ophth Oint 3.5 Gm Tube EACH EYE SCH ×2 (08:34→17:03)
[2016-08-13] MEDS: Multivitamin w/ Minerals Tab PO SCH (08:34)
--- NOTE | 2016-08-13 14:37 | Internal Medicine Prog Note ---
Internal Medicine Subjective - Subjective Patient seen and examined:: with staff, chart reviewed Patient is:: awake, verbal, interactive Per staff patient is:: no adverse event, no episodes of fall, noncompliant, confused Internal Medicine Objective - Results Result Diagrams: 08/08/16 15:55 08/08/16 15:55 Recent Labs: Laboratory Last Values WBC 7.3 Th/cmm (4.8-10.8) 08/08/16 15:55 RBC 3.82 Mil/cmm (3.80-5.80) 08/08/16 15:55 Hgb 10.7 gm/dL (12.6-17.4) L 08/08/16 15:55 Hct 32.4 % (39.0-49.0) L 08/08/16 15:55 MCV 84.8 fl (80-99) 08/08/16 15:55 MCH 28.1 pg (27.0-31.0) 08/08/16 15:55 MCHC Differential 33.1 pg (28.0-36.0) 08/08/16 15:55 RDW 16.1 % (11.5-20.0) 08/08/16 15:55 Plt Count 305 Th/cmm (150-400) 08/08/16 15:55 MPV 7.6 fl 08/08/16 15:55 Neutrophils % 63.0 % (40.0-80.0) 08/08/16 15:55 Lymphocytes % 20.2 % (20.0-50.0) 08/08/16 15:55 Monocytes % 13.4 % (2.0-10.0) H 08/08/16 15:55 Eosinophils % 2.8 % (0.0-5.0) 08/08/16 15:55 Basophils % 0.6 % (0.0-2.0) 08/08/16 15:55 PT 10.5 SECONDS (9.5-11.5) 08/08/16 15:55 INR 1.01 (0.5-1.4) 08/08/16 15:55 PTT (Actin FS) 25.1 SECONDS (26.0-38.0) L 08/08/16 15:55 Sodium 136 mEq/L (136-145) 08/08/16 15:55 Potassium 4.1 mEq/L (3.5-5.1) 08/08/16 15:55 Chloride 107 mEq/L (98-107) 08/08/16 15:55 Carbon Dioxide 25.6 mEq/L (21.0-31.0) 08/08/16 15:55 Anion Gap 7.5 (7.0-16.0) 08/08/16 15:55 BUN 24 mg/dL (7-25) 08/08/16 15:55 Creatinine 0.6 mg/dL (0.7-1.3) L 08/08/16 15:55 Est GFR ( Amer) > 60.0 ml/min (>90) 08/08/16 15:55 Est GFR (Non-Af Amer) > 60.0 ml/min 08/08/16 15:55 BUN/Creatinine Ratio 40.0 08/08/16 15:55 Glucose 97 mg/dL (70-105) 08/08/16 15:55 Calcium 9.5 mg/dL (8.6-10.3) 08/08/16 15:55 Total Bilirubin 0.3 mg/dL (0.3-1.0) 08/08/16 15:55 AST 19 U/L (13-39) 08/08/16 15:55 ALT 18 U/L (7-52) 08/08/16 15:55 Alkaline Phosphatase 90 U/L (34-104) 08/08/16 15:55 Troponin I 0.05 ng/mL (0.01-0.05) 08/08/16 15:55 Total Protein 6.6 gm/dL (6.0-8.3) 08/08/16 15:55 Albumin 3.6 gm/dL (4.2-5.5) L 08/08/16 15:55 Globulin 3.0 gm/dL 08/08/16 15:55 Albumin/Globulin Ratio 1.2 (1.0-1.8) 08/08/16 15:55 Triglycerides 68 mg/dL (<150) 08/08/16 15:55 Cholesterol 187 mg/dL (<200) 08/08/16 15:55 LDL Cholesterol Direct 104 mg/dL (75-193) 08/08/16 15:55 HDL Cholesterol 76 mg/dL (23-92) 08/08/16 15:55 TSH 0.90 uIU/ml (0.34-5.60) 08/08/16 15:55 Urine Source CLEAN C 08/08/16 17:00 Urine Color YELLOW 08/08/16 17:00 Urine Clarity CLEAR (CLEAR) 08/08/16 17:00 Urine pH 6.0 08/08/16 17:00 Ur Specific [place] 1.030 (1.005-1.030) 08/08/16 17:00 Urine Protein NEGATIVE mg/dL (NEGATIVE) 08/08/16 17:00 Urine Glucose (UA) NEGATIVE mg/dL (NEGATIVE) 08/08/16 17:00 Urine Ketones NEGATIVE mg/dL (NEGATIVE) 08/08/16 17:00 Urine Blood NEGATIVE (NEGATIVE) 08/08/16 17:00 Urine Nitrate NEGATIVE (NEGATIVE) 08/08/16 17:00 Urine Bilirubin NEGATIVE (NEGATIVE) 08/08/16 17:00 Urine Urobilinogen 0.2 E.U./dL (0.2 - 1.0) 08/08/16 17:00 Ur Leukocyte Esterase NEGATIVE (NEGATIVE) 08/08/16 17:00 Urine RBC 0-1 /hpf (0-5) 08/08/16 17:00 Urine WBC 0-2 /hpf (0-5) 08/08/16 17:00 Ur Epithelial Cells FEW /lpf (FEW) 08/08/16 17:00 Urine Bacteria OCCASIONAL /hpf (NONE SEEN) 08/08/16 17:00 Urine Mucus FEW /lpf (FEW) 08/08/16 17:00 RPR NONREACTIVE (NONREACTIVE) 08/08/16 15:55 - Physical Exam Vitals and I&O: Vital Signs Temp 98.1 F 08/13/16 05:40 Pulse 73 08/13/16 12:01 Resp 20 08/13/16 12:01 BP 135/67 08/13/16 05:40 Pulse Ox 97 08/13/16 05:40 Intake & Output 08/12/16 08/13/16 08/13/16 18:59 06:59 18:59 Intake Total 900 Balance 900 Weight (lbs) 62.278 kg Intake: Oral 900 Other: # Voids 3 1 # Bowel Movements 1 0 Active Medications: Current Medications Al Hydrox/Mg Hydrox/Simethicone (Maalox) 30 ml PO Q6H PRN PRN Reason: Dyspepsia Stop: 10/07/16 18:42 Artificial Tears (Lubrifresh Ophth Oint) 1 appl EACH EYE BID MAURO Stop: 10/08/16 16:59 Last Admin: 08/13/16 08:34 Dose: 1 appl Ascorbic Acid (Vitamin C) 500 mg PO DAILY MAURO Stop: 10/08/16 08:59 Last Admin: 08/13/16 08:34 Dose: 500 mg Benzocaine/Menthol (Cepacol) 1 agustin MM Q4HR PRN PRN Reason: Sore Throat Stop: 10/08/16 15:09 Last Admin: 08/13/16 08:33 Dose: 1 agustin Docusate Sodium (Colace) 100 mg PO DAILY MAURO Stop: 10/08/16 08:59 Last Admin: 08/13/16 08:34 Dose: 100 mg Ibuprofen (Motrin) 600 mg PO TID PRN PRN Reason: Pain (Mild) Stop: 10/07/16 18:38 Last Admin: 08/12/16 05:01 Dose: 600 mg Lorazepam (Ativan) 0.5 mg PO Q4HR PRN; Protocol PRN Reason: Anxiety Stop: 10/07/16 18:50 Last Admin: 08/13/16 08:33 Dose: 0.5 mg Magnesium Hydroxide (Milk Of Magnesia) 30 ml PO HS PRN PRN Reason: Constipation Stop: 10/07/16 18:42 Mupirocin (Bactroban Oint) 1 appl TP BID MAURO Stop: 10/09/16 16:59 Last Admin: 08/13/16 08:34 Dose: 1 appl Quetiapine Fumarate (Seroquel) 200 mg PO HS MAURO PRN Reason: Protocol Stop: 10/12/16 20:59 Zinc Sulfate (Zinc Sulfate) 220 mg PO DAILY MAURO Stop: 10/08/16 08:59 Last Admin: 08/13/16 08:33 Dose: 220 mg Zolpidem Tartrate (Ambien) 5 mg PO HS PRN PRN Reason: Insomnia Stop: 10/07/16 18:38 Last Admin: 08/12/16 23:15 Dose: 5 mg General: alert HEENT: NC/AT, PERRLA Neck: Supple, No JVD Lungs: CTAB Cardiovascular: RRR, Normal S1, Normal S2 Abdomen: globular, positive bowel sound Extremities: excoriation, contracture Neurological: no change, disorganized, unable to follow command Internal Medicine Assmt/Plan - Assessment Assessment: Anemia, low albumin, mild protein-calorie malnutrition, sore throat, gait instability, thin built, dry eyes mrsa nare, possible bacteremia, possible contamination - Plan Plan: will start on bactroban cont on nasids artificial tears nutritional support yee rn Nutritional Asmnt/Malnutr-PDOC - Dietary Evaluation Malnutrition Findings (Please click <Entered> for more info): Nutritional Asmnt/Malnutrition Start: 08/12/16 12: 24 Text: Status: Complete Freq: Document 08/12/16 12:24 GSUN (Rec: 08/12/16 12:47 [email or web address] [email or web address]) Nutritional Asmnt/Malnutrition Patient General Information Nutritional Screening Moderate Risk Screening Diagnosis Paranoia, schizophrenia Pertinent Medical Hx/Surgical Hx Anemia, thin built, smoker, drinker, mild protein calorie malnutrition, schizophrenia Subjective Information 66 year old male from SNF. Pt was talkative, questionable historian, difficult to understand, rambled on. Pt report UBW 128lb, CBW via bedscale 137.3lb. Pt appeared overall thin, moderate wasting to temporals, chest, clavicles. Pt stated he is always hungry. Pt with few teeth intact, complained of food being pureed. RD explained current diet order to be ground. Pt stated he tolerated hamburger and crackers at [facility] without difficulties. Diet order from [facility]: mech soft , finely chopped, KB. Avg PO intake 83% past 3 days, meeting nutritional needs. Current Diet Order/ Nutrition Support Mech soft ground, KB Pertinent Medications Vitamin C, Colace, MOM, Seroquel, Zinc Sulfate Pertinent Labs Reviewed. Nutritional Hx/Data Height 1.83 m Height (Calculated Centimeters) 182.9 Current Weight (lbs) 62.46 kg Weight (Calculated Kilograms) 62.5 Weight (Calculated Grams) 76711.7 Usual body Weight (lbs) 128 % [place] Body Weight 178 Weight Status Underweight GI Symptoms Food Allergies No Usual diet at home [facility]: mech soft , finely chopped, KB Skin Integrity/Comment: Devin Aggarwal. splitter hand: buttock potential pressure area. Current %PO Good (75-100%) Estimated Nutritional Goals Calories/Kcals/Kg IBW 178lb/80.9kg Kcals Calculated 2022-2427kcal (25-30kcal/kg) Protein g/kg: IBW Protein Calculated 81g (1g/kg) Fluid: ml 2022-2427ml (1ml/kcal) Nutritional Problem 1. Problem Problem Underweight related to Etiology unknown etiology, energy imbalance aeb Signs/Symptoms: BMI 18.6, BMI 17.4 using pt report UBW, moderate fat/ muscle depletion, thin built and mild protein calorie malnutrition noted in H&P Intervention/Recommendation Comments 1. Continue with [facility] ground KB diet. Pt expressed disatisfaction with pureed meals. RD explained current ground diet order. Pt noted with few teeth intact. Diet order at [facility]: [facility] soft, finely chopped, KB . 2. Recommend Boost BID for additional kcal and prot, promote weight gain. Expected Outcomes/Goals Expected Outcomes/Goals 1. PO intake to meet 100% of estimated nutritional needs. 2. Weight trend towards IBW. Physician Parameters for PEM Serum Albumin (g/dl) 3.5 - 5.0 (Normal)
--- NOTE | 2016-08-13 22:05 | Progress Notes ---
DATE: 08/13/2016 Case was discussed with staff of the patient, reviewed records. The patient reports he is still not sleeping well. He continues to be irritable, continues to be unpredictable, impulsive, looking disheveled, disorganized, internally preoccupied, not feeling well. He is compliant with the medication with no side effects, no sedation, no nausea, no extrapyramidal symptoms. I did increase his Seroquel yesterday to 150 and I will make further adjustments to 200, and we will continue to work with the patient in group therapy, milieu therapy, and adjust the medication as needed. JOB# [id number]
[2016-08-14] MEDS: Multivitamin w/ Minerals Tab PO SCH (08:15)
[2016-08-14] MEDS: Artificial Tear Ophth Oint 3.5 Gm Tube EACH EYE SCH ×2 (08:20→16:36)
--- NOTE | 2016-08-14 13:24 | Internal Medicine Prog Note ---
Internal Medicine Subjective - Subjective Patient seen and examined:: with staff, chart reviewed Patient is:: awake, verbal, interactive Per staff patient is:: no adverse event, eating well, noncompliant, confused Internal Medicine Objective - Results Result Diagrams: 08/08/16 15:55 08/08/16 15:55 Recent Labs: Laboratory Last Values WBC 7.3 Th/cmm (4.8-10.8) 08/08/16 15:55 RBC 3.82 Mil/cmm (3.80-5.80) 08/08/16 15:55 Hgb 10.7 gm/dL (12.6-17.4) L 08/08/16 15:55 Hct 32.4 % (39.0-49.0) L 08/08/16 15:55 MCV 84.8 fl (80-99) 08/08/16 15:55 MCH 28.1 pg (27.0-31.0) 08/08/16 15:55 MCHC Differential 33.1 pg (28.0-36.0) 08/08/16 15:55 RDW 16.1 % (11.5-20.0) 08/08/16 15:55 Plt Count 305 Th/cmm (150-400) 08/08/16 15:55 MPV 7.6 fl 08/08/16 15:55 Neutrophils % 63.0 % (40.0-80.0) 08/08/16 15:55 Lymphocytes % 20.2 % (20.0-50.0) 08/08/16 15:55 Monocytes % 13.4 % (2.0-10.0) H 08/08/16 15:55 Eosinophils % 2.8 % (0.0-5.0) 08/08/16 15:55 Basophils % 0.6 % (0.0-2.0) 08/08/16 15:55 PT 10.5 SECONDS (9.5-11.5) 08/08/16 15:55 INR 1.01 (0.5-1.4) 08/08/16 15:55 PTT (Actin FS) 25.1 SECONDS (26.0-38.0) L 08/08/16 15:55 Sodium 136 mEq/L (136-145) 08/08/16 15:55 Potassium 4.1 mEq/L (3.5-5.1) 08/08/16 15:55 Chloride 107 mEq/L (98-107) 08/08/16 15:55 Carbon Dioxide 25.6 mEq/L (21.0-31.0) 08/08/16 15:55 Anion Gap 7.5 (7.0-16.0) 08/08/16 15:55 BUN 24 mg/dL (7-25) 08/08/16 15:55 Creatinine 0.6 mg/dL (0.7-1.3) L 08/08/16 15:55 Est GFR ( Amer) > 60.0 ml/min (>90) 08/08/16 15:55 Est GFR (Non-Af Amer) > 60.0 ml/min 08/08/16 15:55 BUN/Creatinine Ratio 40.0 08/08/16 15:55 Glucose 97 mg/dL (70-105) 08/08/16 15:55 Calcium 9.5 mg/dL (8.6-10.3) 08/08/16 15:55 Total Bilirubin 0.3 mg/dL (0.3-1.0) 08/08/16 15:55 AST 19 U/L (13-39) 08/08/16 15:55 ALT 18 U/L (7-52) 08/08/16 15:55 Alkaline Phosphatase 90 U/L (34-104) 08/08/16 15:55 Troponin I 0.05 ng/mL (0.01-0.05) 08/08/16 15:55 Total Protein 6.6 gm/dL (6.0-8.3) 08/08/16 15:55 Albumin 3.6 gm/dL (4.2-5.5) L 08/08/16 15:55 Globulin 3.0 gm/dL 08/08/16 15:55 Albumin/Globulin Ratio 1.2 (1.0-1.8) 08/08/16 15:55 Triglycerides 68 mg/dL (<150) 08/08/16 15:55 Cholesterol 187 mg/dL (<200) 08/08/16 15:55 LDL Cholesterol Direct 104 mg/dL (75-193) 08/08/16 15:55 HDL Cholesterol 76 mg/dL (23-92) 08/08/16 15:55 TSH 0.90 uIU/ml (0.34-5.60) 08/08/16 15:55 Urine Source CLEAN C 08/08/16 17:00 Urine Color YELLOW 08/08/16 17:00 Urine Clarity CLEAR (CLEAR) 08/08/16 17:00 Urine pH 6.0 08/08/16 17:00 Ur Specific [place] 1.030 (1.005-1.030) 08/08/16 17:00 Urine Protein NEGATIVE mg/dL (NEGATIVE) 08/08/16 17:00 Urine Glucose (UA) NEGATIVE mg/dL (NEGATIVE) 08/08/16 17:00 Urine Ketones NEGATIVE mg/dL (NEGATIVE) 08/08/16 17:00 Urine Blood NEGATIVE (NEGATIVE) 08/08/16 17:00 Urine Nitrate NEGATIVE (NEGATIVE) 08/08/16 17:00 Urine Bilirubin NEGATIVE (NEGATIVE) 08/08/16 17:00 Urine Urobilinogen 0.2 E.U./dL (0.2 - 1.0) 08/08/16 17:00 Ur Leukocyte Esterase NEGATIVE (NEGATIVE) 08/08/16 17:00 Urine RBC 0-1 /hpf (0-5) 08/08/16 17:00 Urine WBC 0-2 /hpf (0-5) 08/08/16 17:00 Ur Epithelial Cells FEW /lpf (FEW) 08/08/16 17:00 Urine Bacteria OCCASIONAL /hpf (NONE SEEN) 08/08/16 17:00 Urine Mucus FEW /lpf (FEW) 08/08/16 17:00 RPR NONREACTIVE (NONREACTIVE) 08/08/16 15:55 - Physical Exam Vitals and I&O: Vital Signs Temp 98.1 F 08/13/16 05:40 Pulse 72 08/14/16 13:11 Resp 19 08/14/16 13:11 BP 135/67 08/13/16 05:40 Pulse Ox 97 08/13/16 05:40 Intake & Output 08/13/16 08/14/16 08/14/16 18:59 06:59 18:59 Intake Total 900 Balance 900 Intake: Oral 900 Other: # Voids 3 # Bowel Movements 1 Active Medications: Current Medications Al Hydrox/Mg Hydrox/Simethicone (Maalox) 30 ml PO Q6H PRN PRN Reason: Dyspepsia Stop: 10/07/16 18:42 Artificial Tears (Lubrifresh Ophth Oint) 1 appl EACH EYE BID MAURO Stop: 10/08/16 16:59 Last Admin: 08/14/16 08:20 Dose: 1 appl Ascorbic Acid (Vitamin C) 500 mg PO DAILY MAURO Stop: 10/08/16 08:59 Last Admin: 08/14/16 08:16 Dose: 500 mg Benzocaine/Menthol (Cepacol) 1 agustin MM Q4HR PRN PRN Reason: Sore Throat Stop: 10/08/16 15:09 Last Admin: 08/14/16 08:16 Dose: 1 agustin Docusate Sodium (Colace) 100 mg PO DAILY MAURO Stop: 10/08/16 08:59 Last Admin: 08/14/16 08:15 Dose: 100 mg Ibuprofen (Motrin) 600 mg PO TID PRN PRN Reason: Pain (Mild) Stop: 10/07/16 18:38 Last Admin: 08/13/16 18:55 Dose: 600 mg Lorazepam (Ativan) 0.5 mg PO Q4HR PRN; Protocol PRN Reason: Anxiety Stop: 10/07/16 18:50 Last Admin: 08/14/16 08:15 Dose: 0.5 mg Magnesium Hydroxide (Milk Of Magnesia) 30 ml PO HS PRN PRN Reason: Constipation Stop: 10/07/16 18:42 Mupirocin (Bactroban Oint) 1 appl TP BID MAURO Stop: 10/09/16 16:59 Last Admin: 08/14/16 08:20 Dose: 1 appl Quetiapine Fumarate (Seroquel) 200 mg PO HS MAURO PRN Reason: Protocol Stop: 10/12/16 20:59 Last Admin: 08/13/16 21:33 Dose: Not Given Zinc Sulfate (Zinc Sulfate) 220 mg PO DAILY MAURO Stop: 10/08/16 08:59 Last Admin: 08/14/16 08:16 Dose: 220 mg Zolpidem Tartrate (Ambien) 5 mg PO HS PRN PRN Reason: Insomnia Stop: 10/07/16 18:38 Last Admin: 08/12/16 23:15 Dose: 5 mg General: demented HEENT: NC/AT, PERRLA Neck: Supple, No JVD Lungs: CTAB Cardiovascular: RRR, Normal S1, Normal S2 Abdomen: soft non-tender, globular, positive bowel sound Extremities: excoriation Neurological: no change, unable to follow command Internal Medicine Assmt/Plan - Assessment Assessment: Anemia, low albumin, mild protein-calorie malnutrition, sore throat, gait instability, thin built, dry eyes mrsa nare, possible bacteremia, possible contamination - Plan Plan: will start on bactroban cont on nasids artificial tears nutritional support yee rn Nutritional Asmnt/Malnutr-PDOC - Dietary Evaluation Malnutrition Findings (Please click <Entered> for more info): Nutritional Asmnt/Malnutrition Start: 08/12/16 12: 24 Text: Status: Complete Freq: Document 08/12/16 12:24 GSUN (Rec: 08/12/16 12:47 [email or web address] [id number]) Nutritional Asmnt/Malnutrition Patient General Information Nutritional Screening Moderate Risk Screening Diagnosis Paranoia, schizophrenia Pertinent Medical Hx/Surgical Hx Anemia, thin built, smoker, drinker, mild protein calorie malnutrition, schizophrenia Subjective Information 66 year old male from SNF. Pt was talkative, questionable historian, difficult to understand, rambled on. Pt report UBW 128lb, CBW via bedscale 137.3lb. Pt appeared overall thin, moderate wasting to temporals, chest, clavicles. Pt stated he is always hungry. Pt with few teeth intact, complained of food being pureed. RD explained current diet order to be ground. Pt stated he tolerated hamburger and crackers at [facility] without difficulties. Diet order from [facility]: mech soft , finely chopped, KB. Avg PO intake 83% past 3 days, meeting nutritional needs. Current Diet Order/ Nutrition Support Mech soft ground, KB Pertinent Medications Vitamin C, Colace, MOM, Seroquel, Zinc Sulfate Pertinent Labs Reviewed. Nutritional Hx/Data Height 1.83 m Height (Calculated Centimeters) 182.9 Current Weight (lbs) 62.46 kg Weight (Calculated Kilograms) 62.5 Weight (Calculated Grams) 91638.7 Usual body Weight (lbs) 128 % [place] Body Weight 178 Weight Status Underweight GI Symptoms Food Allergies No Usual diet at home [facility]: mech soft , finely chopped, KB Skin Integrity/Comment: Devin Aggarwal. ham trimmer: buttock potential pressure area. Current %PO Good (75-100%) Estimated Nutritional Goals Calories/Kcals/Kg IBW 178lb/80.9kg Kcals Calculated 2022-2427kcal (25-30kcal/kg) Protein g/kg: IBW Protein Calculated 81g (1g/kg) Fluid: ml 2022-2427ml (1ml/kcal) Nutritional Problem 1. Problem Problem Underweight related to Etiology unknown etiology, energy imbalance aeb Signs/Symptoms: BMI 18.6, BMI 17.4 using pt report UBW, moderate fat/ muscle depletion, thin built and mild protein calorie malnutrition noted in H&P Intervention/Recommendation Comments 1. Continue with [facility] ground KB diet. Pt expressed disatisfaction with pureed meals. RD explained current ground diet order. Pt noted with few teeth intact. Diet order at [facility]: [facility] soft, finely chopped, KB . 2. Recommend Boost BID for additional kcal and prot, promote weight gain. Expected Outcomes/Goals Expected Outcomes/Goals 1. PO intake to meet 100% of estimated nutritional needs. 2. Weight trend towards IBW. Physician Parameters for PEM Serum Albumin (g/dl) 3.5 - 5.0 (Normal)
--- NOTE | 2016-08-15 03:35 | Progress Notes ---
DATE: 08/14/2016 Case was discussed with staff of the patient, reviewed records. The patient continues to be reported to be irritable. Continues to be unpredictable and impulsive. Continues to need redirection. Continues to have poor insight. He is unhappy because he is to have pureed diet and apparently some of his teeth missing. He is compliant with the medication with no side effect, unpredictable, impulsive, and we will continue to work up with the patient in group therapy, milieu therapy, and adjust medication as needed. JOB# [id number]
[2016-08-15] MEDS ORDERED: Haloperidol Lactate 5 mg/mL 1mL Vial ONE (09:11)
[2016-08-15] MEDS ORDERED: Haloperidol Lactate 5 mg/mL 1mL Vial IM ONE (09:14)
[2016-08-15] MEDS: Multivitamin w/ Minerals Tab PO SCH (11:37)
[2016-08-15] MEDS: Artificial Tear Ophth Oint 3.5 Gm Tube EACH EYE SCH ×2 (11:37→18:46)
--- NOTE | 2016-08-15 12:58 | Internal Medicine Prog Note ---
Internal Medicine Subjective - Subjective Patient seen and examined:: with staff, chart reviewed Patient is:: awake, verbal, interactive, talking Per staff patient is:: no adverse event, no episodes of fall, confused Internal Medicine Objective - Results Result Diagrams: 08/08/16 15:55 08/08/16 15:55 Recent Labs: Laboratory Last Values WBC 7.3 Th/cmm (4.8-10.8) 08/08/16 15:55 RBC 3.82 Mil/cmm (3.80-5.80) 08/08/16 15:55 Hgb 10.7 gm/dL (12.6-17.4) L 08/08/16 15:55 Hct 32.4 % (39.0-49.0) L 08/08/16 15:55 MCV 84.8 fl (80-99) 08/08/16 15:55 MCH 28.1 pg (27.0-31.0) 08/08/16 15:55 MCHC Differential 33.1 pg (28.0-36.0) 08/08/16 15:55 RDW 16.1 % (11.5-20.0) 08/08/16 15:55 Plt Count 305 Th/cmm (150-400) 08/08/16 15:55 MPV 7.6 fl 08/08/16 15:55 Neutrophils % 63.0 % (40.0-80.0) 08/08/16 15:55 Lymphocytes % 20.2 % (20.0-50.0) 08/08/16 15:55 Monocytes % 13.4 % (2.0-10.0) H 08/08/16 15:55 Eosinophils % 2.8 % (0.0-5.0) 08/08/16 15:55 Basophils % 0.6 % (0.0-2.0) 08/08/16 15:55 PT 10.5 SECONDS (9.5-11.5) 08/08/16 15:55 INR 1.01 (0.5-1.4) 08/08/16 15:55 PTT (Actin FS) 25.1 SECONDS (26.0-38.0) L 08/08/16 15:55 Sodium 136 mEq/L (136-145) 08/08/16 15:55 Potassium 4.1 mEq/L (3.5-5.1) 08/08/16 15:55 Chloride 107 mEq/L (98-107) 08/08/16 15:55 Carbon Dioxide 25.6 mEq/L (21.0-31.0) 08/08/16 15:55 Anion Gap 7.5 (7.0-16.0) 08/08/16 15:55 BUN 24 mg/dL (7-25) 08/08/16 15:55 Creatinine 0.6 mg/dL (0.7-1.3) L 08/08/16 15:55 Est GFR ( Amer) > 60.0 ml/min (>90) 08/08/16 15:55 Est GFR (Non-Af Amer) > 60.0 ml/min 08/08/16 15:55 BUN/Creatinine Ratio 40.0 08/08/16 15:55 Glucose 97 mg/dL (70-105) 08/08/16 15:55 Calcium 9.5 mg/dL (8.6-10.3) 08/08/16 15:55 Total Bilirubin 0.3 mg/dL (0.3-1.0) 08/08/16 15:55 AST 19 U/L (13-39) 08/08/16 15:55 ALT 18 U/L (7-52) 08/08/16 15:55 Alkaline Phosphatase 90 U/L (34-104) 08/08/16 15:55 Troponin I 0.05 ng/mL (0.01-0.05) 08/08/16 15:55 Total Protein 6.6 gm/dL (6.0-8.3) 08/08/16 15:55 Albumin 3.6 gm/dL (4.2-5.5) L 08/08/16 15:55 Globulin 3.0 gm/dL 08/08/16 15:55 Albumin/Globulin Ratio 1.2 (1.0-1.8) 08/08/16 15:55 Triglycerides 68 mg/dL (<150) 08/08/16 15:55 Cholesterol 187 mg/dL (<200) 08/08/16 15:55 LDL Cholesterol Direct 104 mg/dL (75-193) 08/08/16 15:55 HDL Cholesterol 76 mg/dL (23-92) 08/08/16 15:55 TSH 0.90 uIU/ml (0.34-5.60) 08/08/16 15:55 Urine Source CLEAN C 08/08/16 17:00 Urine Color YELLOW 08/08/16 17:00 Urine Clarity CLEAR (CLEAR) 08/08/16 17:00 Urine pH 6.0 08/08/16 17:00 Ur Specific [place] 1.030 (1.005-1.030) 08/08/16 17:00 Urine Protein NEGATIVE mg/dL (NEGATIVE) 08/08/16 17:00 Urine Glucose (UA) NEGATIVE mg/dL (NEGATIVE) 08/08/16 17:00 Urine Ketones NEGATIVE mg/dL (NEGATIVE) 08/08/16 17:00 Urine Blood NEGATIVE (NEGATIVE) 08/08/16 17:00 Urine Nitrate NEGATIVE (NEGATIVE) 08/08/16 17:00 Urine Bilirubin NEGATIVE (NEGATIVE) 08/08/16 17:00 Urine Urobilinogen 0.2 E.U./dL (0.2 - 1.0) 08/08/16 17:00 Ur Leukocyte Esterase NEGATIVE (NEGATIVE) 08/08/16 17:00 Urine RBC 0-1 /hpf (0-5) 08/08/16 17:00 Urine WBC 0-2 /hpf (0-5) 08/08/16 17:00 Ur Epithelial Cells FEW /lpf (FEW) 08/08/16 17:00 Urine Bacteria OCCASIONAL /hpf (NONE SEEN) 08/08/16 17:00 Urine Mucus FEW /lpf (FEW) 08/08/16 17:00 RPR NONREACTIVE (NONREACTIVE) 08/08/16 15:55 - Physical Exam Vitals and I&O: Vital Signs Temp 98.1 F 08/15/16 07:33 Pulse 69 08/14/16 16:06 Resp 20 08/14/16 16:06 BP 135/75 08/14/16 16:06 Pulse Ox 98 08/14/16 16:06 Intake & Output 08/14/16 08/15/16 08/15/16 18:59 06:59 18:59 Intake Total 1000 Output Total 1 Balance 999 Intake: Oral 1000 Output: Stool 1 Other: # Voids 4 1 1 Active Medications: Current Medications Al Hydrox/Mg Hydrox/Simethicone (Maalox) 30 ml PO Q6H PRN PRN Reason: Dyspepsia Stop: 08/08/17 18:42 Artificial Tears (Lubrifresh Ophth Oint) 1 appl EACH EYE BID MAURO Stop: 10/08/16 16:59 Last Admin: 08/15/16 11:37 Dose: Not Given Ascorbic Acid (Vitamin C) 500 mg PO DAILY MAURO Stop: 10/08/16 08:59 Last Admin: 08/15/16 11:37 Dose: Not Given Benzocaine/Menthol (Cepacol) 1 agustin MM Q4HR PRN PRN Reason: Sore Throat Stop: 10/08/16 15:09 Last Admin: 08/14/16 16:39 Dose: 1 agustin Docusate Sodium (Colace) 100 mg PO DAILY MAURO Stop: 10/08/16 08:59 Last Admin: 08/15/16 11:37 Dose: Not Given Ibuprofen (Motrin) 600 mg PO TID PRN PRN Reason: Pain (Mild) Stop: 10/07/16 18:38 Last Admin: 08/13/16 18:55 Dose: 600 mg Lorazepam (Ativan) 0.5 mg PO Q4HR PRN; Protocol PRN Reason: Anxiety Stop: 10/07/16 18:50 Last Admin: 08/14/16 16:39 Dose: 0.5 mg Magnesium Hydroxide (Milk Of Magnesia) 30 ml PO HS PRN PRN Reason: Constipation Stop: 10/07/16 18:42 Mupirocin (Bactroban Oint) 1 appl TP BID MAURO Stop: 10/09/16 16:59 Last Admin: 08/15/16 11:37 Dose: Not Given Quetiapine Fumarate (Seroquel) 300 mg PO HS MAURO PRN Reason: Protocol Stop: 10/14/16 20:59 Zinc Sulfate (Zinc Sulfate) 220 mg PO DAILY MAURO Stop: 10/08/16 08:59 Last Admin: 08/15/16 11:37 Dose: Not Given Zolpidem Tartrate (Ambien) 5 mg PO HS PRN PRN Reason: Insomnia Stop: 10/07/16 18:38 Last Admin: 08/12/16 23:15 Dose: 5 mg General: demented HEENT: NC/AT, PERRLA Neck: Supple, No JVD Lungs: CTAB Cardiovascular: RRR, Normal S1, Normal S2 Abdomen: soft non-tender, globular, positive bowel sound Extremities: excoriation, contracture Neurological: no change, unable to follow command Internal Medicine Assmt/Plan - Assessment Assessment: Anemia, low albumin, mild protein-calorie malnutrition, sore throat, gait instability, thin built, dry eyes mrsa nare, possible bacteremia, possible contamination - Plan Plan: will start on bactroban cont on nasids artificial tears nutritional support yee rn Nutritional Asmnt/Malnutr-PDOC - Dietary Evaluation Malnutrition Findings (Please click <Entered> for more info): Nutritional Asmnt/Malnutrition Start: 08/12/16 12: 24 Text: Status: Complete Freq: Document 08/12/16 12:24 GSUN (Rec: 08/12/16 12:47 [email or web address] [email or web address]) Nutritional Asmnt/Malnutrition Patient General Information Nutritional Screening Moderate Risk Screening Diagnosis Paranoia, schizophrenia Pertinent Medical Hx/Surgical Hx Anemia, thin built, smoker, drinker, mild protein calorie malnutrition, schizophrenia Subjective Information 66 year old male from SNF. Pt was talkative, questionable historian, difficult to understand, rambled on. Pt report UBW 128lb, CBW via bedscale 137.3lb. Pt appeared overall thin, moderate wasting to temporals, chest, clavicles. Pt stated he is always hungry. Pt with few teeth intact, complained of food being pureed. RD explained current diet order to be ground. Pt stated he tolerated hamburger and crackers at [facility] without difficulties. Diet order from [facility]: mech soft , finely chopped, KB. Avg PO intake 83% past 3 days, meeting nutritional needs. Current Diet Order/ Nutrition Support Mech soft ground, KB Pertinent Medications Vitamin C, Colace, MOM, Seroquel, Zinc Sulfate Pertinent Labs Reviewed. Nutritional Hx/Data Height 1.83 m Height (Calculated Centimeters) 182.9 Current Weight (lbs) 62.46 kg Weight (Calculated Kilograms) 62.5 Weight (Calculated Grams) 63557.7 Usual body Weight (lbs) 128 % [place] Body Weight 178 Weight Status Underweight GI Symptoms Food Allergies No Usual diet at home [facility]: mech soft , finely chopped, KB Skin Integrity/Comment: Devin Aggarwal. chiseler head: buttock potential pressure area. Current %PO Good (75-100%) Estimated Nutritional Goals Calories/Kcals/Kg IBW 178lb/80.9kg Kcals Calculated 2022-2427kcal (25-30kcal/kg) Protein g/kg: IBW Protein Calculated 81g (1g/kg) Fluid: ml 2022-2427ml (1ml/kcal) Nutritional Problem 1. Problem Problem Underweight related to Etiology unknown etiology, energy imbalance aeb Signs/Symptoms: BMI 18.6, BMI 17.4 using pt report UBW, moderate fat/ muscle depletion, thin built and mild protein calorie malnutrition noted in H&P Intervention/Recommendation Comments 1. Continue with [facility] ground KB diet. Pt expressed disatisfaction with pureed meals. RD explained current ground diet order. Pt noted with few teeth intact. Diet order at [facility]: [facility] soft, finely chopped, KB . 2. Recommend Boost BID for additional kcal and prot, promote weight gain. Expected Outcomes/Goals Expected Outcomes/Goals 1. PO intake to meet 100% of estimated nutritional needs. 2. Weight trend towards IBW. Physician Parameters for PEM Serum Albumin (g/dl) 3.5 - 5.0 (Normal)
--- NOTE | 2016-08-15 23:54 | Progress Notes ---
DATE: 08/15/2016 SUBJECTIVE: Case was discussed with staff and reviewed records. The patient was acting out this morning. Continues to be unpredictable, impulsive, needing redirection. He continues to have poor insight, very easily irritable. PLAN: I will be increasing his Seroquel dose further to 300 mg at bedtime and so far no side effects, no sedation, no nausea, no extrapyramidal symptoms. We will continue to work with the patient in group therapy, milieu therapy, adjust the medication as needed. JOB# [id number]
[2016-08-16] MEDS: Artificial Tear Ophth Oint 3.5 Gm Tube EACH EYE SCH ×2 (09:22→16:55)
[2016-08-16] MEDS: Multivitamin w/ Minerals Tab PO SCH (09:22)
--- NOTE | 2016-08-16 14:36 | Internal Medicine Prog Note ---
Internal Medicine Subjective - Subjective Patient seen and examined:: with staff, chart reviewed Patient is:: awake, verbal, interactive Per staff patient is:: no adverse event, no episodes of fall, poor oral intake, noncompliant, confused Internal Medicine Objective - Results Result Diagrams: 08/08/16 15:55 08/08/16 15:55 Recent Labs: Laboratory Last Values WBC 7.3 Th/cmm (4.8-10.8) 08/08/16 15:55 RBC 3.82 Mil/cmm (3.80-5.80) 08/08/16 15:55 Hgb 10.7 gm/dL (12.6-17.4) L 08/08/16 15:55 Hct 32.4 % (39.0-49.0) L 08/08/16 15:55 MCV 84.8 fl (80-99) 08/08/16 15:55 MCH 28.1 pg (27.0-31.0) 08/08/16 15:55 MCHC Differential 33.1 pg (28.0-36.0) 08/08/16 15:55 RDW 16.1 % (11.5-20.0) 08/08/16 15:55 Plt Count 305 Th/cmm (150-400) 08/08/16 15:55 MPV 7.6 fl 08/08/16 15:55 Neutrophils % 63.0 % (40.0-80.0) 08/08/16 15:55 Lymphocytes % 20.2 % (20.0-50.0) 08/08/16 15:55 Monocytes % 13.4 % (2.0-10.0) H 08/08/16 15:55 Eosinophils % 2.8 % (0.0-5.0) 08/08/16 15:55 Basophils % 0.6 % (0.0-2.0) 08/08/16 15:55 PT 10.5 SECONDS (9.5-11.5) 08/08/16 15:55 INR 1.01 (0.5-1.4) 08/08/16 15:55 PTT (Actin FS) 25.1 SECONDS (26.0-38.0) L 08/08/16 15:55 Sodium 136 mEq/L (136-145) 08/08/16 15:55 Potassium 4.1 mEq/L (3.5-5.1) 08/08/16 15:55 Chloride 107 mEq/L (98-107) 08/08/16 15:55 Carbon Dioxide 25.6 mEq/L (21.0-31.0) 08/08/16 15:55 Anion Gap 7.5 (7.0-16.0) 08/08/16 15:55 BUN 24 mg/dL (7-25) 08/08/16 15:55 Creatinine 0.6 mg/dL (0.7-1.3) L 08/08/16 15:55 Est GFR ( Amer) > 60.0 ml/min (>90) 08/08/16 15:55 Est GFR (Non-Af Amer) > 60.0 ml/min 08/08/16 15:55 BUN/Creatinine Ratio 40.0 08/08/16 15:55 Glucose 97 mg/dL (70-105) 08/08/16 15:55 Calcium 9.5 mg/dL (8.6-10.3) 08/08/16 15:55 Total Bilirubin 0.3 mg/dL (0.3-1.0) 08/08/16 15:55 AST 19 U/L (13-39) 08/08/16 15:55 ALT 18 U/L (7-52) 08/08/16 15:55 Alkaline Phosphatase 90 U/L (34-104) 08/08/16 15:55 Troponin I 0.05 ng/mL (0.01-0.05) 08/08/16 15:55 Total Protein 6.6 gm/dL (6.0-8.3) 08/08/16 15:55 Albumin 3.6 gm/dL (4.2-5.5) L 08/08/16 15:55 Globulin 3.0 gm/dL 08/08/16 15:55 Albumin/Globulin Ratio 1.2 (1.0-1.8) 08/08/16 15:55 Triglycerides 68 mg/dL (<150) 08/08/16 15:55 Cholesterol 187 mg/dL (<200) 08/08/16 15:55 LDL Cholesterol Direct 104 mg/dL (75-193) 08/08/16 15:55 HDL Cholesterol 76 mg/dL (23-92) 08/08/16 15:55 TSH 0.90 uIU/ml (0.34-5.60) 08/08/16 15:55 Urine Source CLEAN C 08/08/16 17:00 Urine Color YELLOW 08/08/16 17:00 Urine Clarity CLEAR (CLEAR) 08/08/16 17:00 Urine pH 6.0 08/08/16 17:00 Ur Specific [place] 1.030 (1.005-1.030) 08/08/16 17:00 Urine Protein NEGATIVE mg/dL (NEGATIVE) 08/08/16 17:00 Urine Glucose (UA) NEGATIVE mg/dL (NEGATIVE) 08/08/16 17:00 Urine Ketones NEGATIVE mg/dL (NEGATIVE) 08/08/16 17:00 Urine Blood NEGATIVE (NEGATIVE) 08/08/16 17:00 Urine Nitrate NEGATIVE (NEGATIVE) 08/08/16 17:00 Urine Bilirubin NEGATIVE (NEGATIVE) 08/08/16 17:00 Urine Urobilinogen 0.2 E.U./dL (0.2 - 1.0) 08/08/16 17:00 Ur Leukocyte Esterase NEGATIVE (NEGATIVE) 08/08/16 17:00 Urine RBC 0-1 /hpf (0-5) 08/08/16 17:00 Urine WBC 0-2 /hpf (0-5) 08/08/16 17:00 Ur Epithelial Cells FEW /lpf (FEW) 08/08/16 17:00 Urine Bacteria OCCASIONAL /hpf (NONE SEEN) 08/08/16 17:00 Urine Mucus FEW /lpf (FEW) 08/08/16 17:00 RPR NONREACTIVE (NONREACTIVE) 08/08/16 15:55 - Physical Exam Vitals and I&O: Vital Signs Temp 98.3 F 08/16/16 07:14 Pulse 63 08/16/16 07:14 Resp 19 08/16/16 07:14 BP 97/54 08/16/16 07:14 Pulse Ox 97 08/16/16 07:14 Intake & Output 08/15/16 08/16/16 08/16/16 18:59 06:59 18:59 Intake Total 850 240 Balance 850 240 Intake: Oral 850 240 Other: # Voids 3 1 1 Active Medications: Current Medications Al Hydrox/Mg Hydrox/Simethicone (Maalox) 30 ml PO Q6H PRN PRN Reason: Dyspepsia Stop: 10/07/16 18:42 Artificial Tears (Lubrifresh Ophth Oint) 1 appl EACH EYE BID MAURO Stop: 10/08/16 16:59 Last Admin: 08/16/16 09:22 Dose: Not Given Ascorbic Acid (Vitamin C) 500 mg PO DAILY MAURO Stop: 10/08/16 08:59 Last Admin: 08/16/16 09:22 Dose: Not Given Benzocaine/Menthol (Cepacol) 1 agustin MM Q4HR PRN PRN Reason: Sore Throat Stop: 10/08/16 15:09 Last Admin: 08/14/16 16:39 Dose: 1 agustin Docusate Sodium (Colace) 100 mg PO DAILY MAURO Stop: 10/08/16 08:59 Last Admin: 08/16/16 09:22 Dose: Not Given Ibuprofen (Motrin) 600 mg PO TID PRN PRN Reason: Pain (Mild) Stop: 10/07/16 18:38 Last Admin: 08/13/16 18:55 Dose: 600 mg Lorazepam (Ativan) 0.5 mg PO Q4HR PRN; Protocol PRN Reason: Anxiety Stop: 10/07/16 18:50 Last Admin: 08/14/16 16:39 Dose: 0.5 mg Magnesium Hydroxide (Milk Of Magnesia) 30 ml PO HS PRN PRN Reason: Constipation Stop: 10/07/16 18:42 Mupirocin (Bactroban Oint) 1 appl TP BID MAURO Stop: 10/09/16 16:59 Last Admin: 08/16/16 09:22 Dose: Not Given Quetiapine Fumarate (Seroquel) 300 mg PO HS MAURO PRN Reason: Protocol Stop: 10/14/16 20:59 Last Admin: 08/15/16 20:40 Dose: 300 mg Zinc Sulfate (Zinc Sulfate) 220 mg PO DAILY MAURO Stop: 10/08/16 08:59 Last Admin: 08/16/16 09:23 Dose: Not Given Zolpidem Tartrate (Ambien) 5 mg PO HS PRN PRN Reason: Insomnia Stop: 10/07/16 18:38 Last Admin: 08/12/16 23:15 Dose: 5 mg General: demented HEENT: NC/AT, PERRLA Neck: Supple, No JVD Lungs: CTAB Cardiovascular: RRR, Normal S1, Normal S2 Abdomen: soft non-tender, globular, positive bowel sound Extremities: excoriation, contracture Neurological: disorganized, unable to follow command Internal Medicine Assmt/Plan - Assessment Assessment: Anemia, low albumin, mild protein-calorie malnutrition, sore throat, gait instability, thin built, dry eyes mrsa nare, possible bacteremia, possible contamination - Plan Plan: will start on bactroban cont on nasids artificial tears nutritional support yee rn Nutritional Asmnt/Malnutr-PDOC - Dietary Evaluation Malnutrition Findings (Please click <Entered> for more info): Nutritional Asmnt/Malnutrition Start: 08/12/16 12: 24 Text: Status: Complete Freq: Document 08/12/16 12:24 GSUN (Rec: 08/12/16 12:47 [email or web address] [id number]) Nutritional Asmnt/Malnutrition Patient General Information Nutritional Screening Moderate Risk Screening Diagnosis Paranoia, schizophrenia Pertinent Medical Hx/Surgical Hx Anemia, thin built, smoker, drinker, mild protein calorie malnutrition, schizophrenia Subjective Information 66 year old male from SNF. Pt was talkative, questionable historian, difficult to understand, rambled on. Pt report UBW 128lb, CBW via bedscale 137.3lb. Pt appeared overall thin, moderate wasting to temporals, chest, clavicles. Pt stated he is always hungry. Pt with few teeth intact, complained of food being pureed. RD explained current diet order to be ground. Pt stated he tolerated hamburger and crackers at [facility] without difficulties. Diet order from [facility]: mech soft , finely chopped, KB. Avg PO intake 83% past 3 days, meeting nutritional needs. Current Diet Order/ Nutrition Support Mech soft ground, KB Pertinent Medications Vitamin C, Colace, MOM, Seroquel, Zinc Sulfate Pertinent Labs Reviewed. Nutritional Hx/Data Height 1.83 m Height (Calculated Centimeters) 182.9 Current Weight (lbs) 62.46 kg Weight (Calculated Kilograms) 62.5 Weight (Calculated Grams) 93773.7 Usual body Weight (lbs) 128 % [place] Body Weight 178 Weight Status Underweight GI Symptoms Food Allergies No Usual diet at home [facility]: mech soft , finely chopped, KB Skin Integrity/Comment: Devin Aggarwal. travel attendants: buttock potential pressure area. Current %PO Good (75-100%) Estimated Nutritional Goals Calories/Kcals/Kg IBW 178lb/80.9kg Kcals Calculated 2022-2427kcal (25-30kcal/kg) Protein g/kg: IBW Protein Calculated 81g (1g/kg) Fluid: ml 2022-2427ml (1ml/kcal) Nutritional Problem 1. Problem Problem Underweight related to Etiology unknown etiology, energy imbalance aeb Signs/Symptoms: BMI 18.6, BMI 17.4 using pt report UBW, moderate fat/ muscle depletion, thin built and mild protein calorie malnutrition noted in H&P Intervention/Recommendation Comments 1. Continue with [facility] ground KB diet. Pt expressed disatisfaction with pureed meals. RD explained current ground diet order. Pt noted with few teeth intact. Diet order at [facility]: [facility] soft, finely chopped, KB . 2. Recommend Boost BID for additional kcal and prot, promote weight gain. Expected Outcomes/Goals Expected Outcomes/Goals 1. PO intake to meet 100% of estimated nutritional needs. 2. Weight trend towards IBW. Physician Parameters for PEM Serum Albumin (g/dl) 3.5 - 5.0 (Normal)
--- NOTE | 2016-08-16 21:46 | Progress Notes ---
DATE: 08/16/2016 COVERING FOR: Dr. Morgan. SUBJECTIVE: Chart reviewed and the patient interviewed. Also discussed the patient's condition with the staff and reviewed records and labs. The patient is still paranoid and is still actively hallucinating. The patient also is actively responding to stimuli. The patient also is selective in regard to taking his medications. He refused to take his medication yesterday, but he did take Seroquel last night. He still needs close monitoring. ASSESSMENT: The patient is still psychotic. TREATMENT PLAN: We will continue monitoring his behavior and his condition closely. Also, continue to work with the patient in regard to his psychosis and his compliance with taking medications. Also, continue to work on his anger and his paranoia and compliance with medications. JOB# [id number]
[2016-08-17] MEDS: Artificial Tear Ophth Oint 3.5 Gm Tube EACH EYE SCH ×2 (08:52→16:24)
[2016-08-17] MEDS: Multivitamin w/ Minerals Tab PO SCH (08:53)
--- NOTE | 2016-08-17 12:45 | Internal Medicine Prog Note ---
Internal Medicine Subjective - Subjective Patient seen and examined:: with staff, chart reviewed Patient is:: awake, verbal, interactive Per staff patient is:: no adverse event, no episodes of fall, eating well, noncompliant Internal Medicine Objective - Results Result Diagrams: 08/08/16 15:55 08/08/16 15:55 Recent Labs: Laboratory Last Values WBC 7.3 Th/cmm (4.8-10.8) 08/08/16 15:55 RBC 3.82 Mil/cmm (3.80-5.80) 08/08/16 15:55 Hgb 10.7 gm/dL (12.6-17.4) L 08/08/16 15:55 Hct 32.4 % (39.0-49.0) L 08/08/16 15:55 MCV 84.8 fl (80-99) 08/08/16 15:55 MCH 28.1 pg (27.0-31.0) 08/08/16 15:55 MCHC Differential 33.1 pg (28.0-36.0) 08/08/16 15:55 RDW 16.1 % (11.5-20.0) 08/08/16 15:55 Plt Count 305 Th/cmm (150-400) 08/08/16 15:55 MPV 7.6 fl 08/08/16 15:55 Neutrophils % 63.0 % (40.0-80.0) 08/08/16 15:55 Lymphocytes % 20.2 % (20.0-50.0) 08/08/16 15:55 Monocytes % 13.4 % (2.0-10.0) H 08/08/16 15:55 Eosinophils % 2.8 % (0.0-5.0) 08/08/16 15:55 Basophils % 0.6 % (0.0-2.0) 08/08/16 15:55 PT 10.5 SECONDS (9.5-11.5) 08/08/16 15:55 INR 1.01 (0.5-1.4) 08/08/16 15:55 PTT (Actin FS) 25.1 SECONDS (26.0-38.0) L 08/08/16 15:55 Sodium 136 mEq/L (136-145) 08/08/16 15:55 Potassium 4.1 mEq/L (3.5-5.1) 08/08/16 15:55 Chloride 107 mEq/L (98-107) 08/08/16 15:55 Carbon Dioxide 25.6 mEq/L (21.0-31.0) 08/08/16 15:55 Anion Gap 7.5 (7.0-16.0) 08/08/16 15:55 BUN 24 mg/dL (7-25) 08/08/16 15:55 Creatinine 0.6 mg/dL (0.7-1.3) L 08/08/16 15:55 Est GFR ( Amer) > 60.0 ml/min (>90) 08/08/16 15:55 Est GFR (Non-Af Amer) > 60.0 ml/min 08/08/16 15:55 BUN/Creatinine Ratio 40.0 08/08/16 15:55 Glucose 97 mg/dL (70-105) 08/08/16 15:55 Calcium 9.5 mg/dL (8.6-10.3) 08/08/16 15:55 Total Bilirubin 0.3 mg/dL (0.3-1.0) 08/08/16 15:55 AST 19 U/L (13-39) 08/08/16 15:55 ALT 18 U/L (7-52) 08/08/16 15:55 Alkaline Phosphatase 90 U/L (34-104) 08/08/16 15:55 Troponin I 0.05 ng/mL (0.01-0.05) 08/08/16 15:55 Total Protein 6.6 gm/dL (6.0-8.3) 08/08/16 15:55 Albumin 3.6 gm/dL (4.2-5.5) L 08/08/16 15:55 Globulin 3.0 gm/dL 08/08/16 15:55 Albumin/Globulin Ratio 1.2 (1.0-1.8) 08/08/16 15:55 Triglycerides 68 mg/dL (<150) 08/08/16 15:55 Cholesterol 187 mg/dL (<200) 08/08/16 15:55 LDL Cholesterol Direct 104 mg/dL (75-193) 08/08/16 15:55 HDL Cholesterol 76 mg/dL (23-92) 08/08/16 15:55 TSH 0.90 uIU/ml (0.34-5.60) 08/08/16 15:55 Urine Source CLEAN C 08/08/16 17:00 Urine Color YELLOW 08/08/16 17:00 Urine Clarity CLEAR (CLEAR) 08/08/16 17:00 Urine pH 6.0 08/08/16 17:00 Ur Specific [place] 1.030 (1.005-1.030) 08/08/16 17:00 Urine Protein NEGATIVE mg/dL (NEGATIVE) 08/08/16 17:00 Urine Glucose (UA) NEGATIVE mg/dL (NEGATIVE) 08/08/16 17:00 Urine Ketones NEGATIVE mg/dL (NEGATIVE) 08/08/16 17:00 Urine Blood NEGATIVE (NEGATIVE) 08/08/16 17:00 Urine Nitrate NEGATIVE (NEGATIVE) 08/08/16 17:00 Urine Bilirubin NEGATIVE (NEGATIVE) 08/08/16 17:00 Urine Urobilinogen 0.2 E.U./dL (0.2 - 1.0) 08/08/16 17:00 Ur Leukocyte Esterase NEGATIVE (NEGATIVE) 08/08/16 17:00 Urine RBC 0-1 /hpf (0-5) 08/08/16 17:00 Urine WBC 0-2 /hpf (0-5) 08/08/16 17:00 Ur Epithelial Cells FEW /lpf (FEW) 08/08/16 17:00 Urine Bacteria OCCASIONAL /hpf (NONE SEEN) 08/08/16 17:00 Urine Mucus FEW /lpf (FEW) 08/08/16 17:00 RPR NONREACTIVE (NONREACTIVE) 08/08/16 15:55 - Physical Exam Vitals and I&O: Vital Signs Temp 98.2 F 08/17/16 06:30 Pulse 67 08/17/16 06:30 Resp 20 08/17/16 06:30 BP 97/54 08/17/16 06:30 Pulse Ox 98 08/17/16 06:30 Intake & Output 08/16/16 08/17/16 08/17/16 18:59 06:59 18:59 Intake Total 1600 120 Balance 1600 120 Intake: Oral 1600 120 Other: # Voids 4 3 # Bowel Movements 0 Active Medications: Current Medications Al Hydrox/Mg Hydrox/Simethicone (Maalox) 30 ml PO Q6H PRN PRN Reason: Dyspepsia Stop: 10/07/16 18:42 Artificial Tears (Lubrifresh Ophth Oint) 1 appl EACH EYE BID MAURO Stop: 10/08/16 16:59 Last Admin: 08/17/16 08:52 Dose: 1 appl Ascorbic Acid (Vitamin C) 500 mg PO DAILY MAURO Stop: 10/08/16 08:59 Last Admin: 08/17/16 08:53 Dose: 500 mg Benzocaine/Menthol (Cepacol) 1 agustin MM Q4HR PRN PRN Reason: Sore Throat Stop: 10/08/16 15:09 Last Admin: 08/14/16 16:39 Dose: 1 agustin Docusate Sodium (Colace) 100 mg PO DAILY MAURO Stop: 10/08/16 08:59 Last Admin: 08/17/16 08:53 Dose: 100 mg Ibuprofen (Motrin) 600 mg PO TID PRN PRN Reason: Pain (Mild) Stop: 10/07/16 18:38 Last Admin: 08/17/16 04:18 Dose: 600 mg Lorazepam (Ativan) 0.5 mg PO Q4HR PRN; Protocol PRN Reason: Anxiety Stop: 10/07/16 18:50 Last Admin: 08/17/16 08:53 Dose: 0.5 mg Magnesium Hydroxide (Milk Of Magnesia) 30 ml PO HS PRN PRN Reason: Constipation Stop: 10/07/16 18:42 Mupirocin (Bactroban Oint) 1 appl TP BID MAURO Stop: 10/09/16 16:59 Last Admin: 08/17/16 08:52 Dose: 1 appl Quetiapine Fumarate (Seroquel) 300 mg PO HS MAURO PRN Reason: Protocol Stop: 10/14/16 20:59 Last Admin: 08/16/16 20:45 Dose: Not Given Zinc Sulfate (Zinc Sulfate) 220 mg PO DAILY MAURO Stop: 10/08/16 08:59 Last Admin: 08/17/16 08:53 Dose: 220 mg Zolpidem Tartrate (Ambien) 5 mg PO HS PRN PRN Reason: Insomnia Stop: 10/07/16 18:38 Last Admin: 08/12/16 23:15 Dose: 5 mg General: demented HEENT: NC/AT, PERRLA Neck: Supple, No JVD Lungs: CTAB Cardiovascular: RRR, Normal S1, Normal S2 Abdomen: soft non-tender, globular, positive bowel sound Extremities: excoriation, contracture Neurological: disorganized, unable to follow command Internal Medicine Assmt/Plan - Assessment Assessment: Anemia, low albumin, mild protein-calorie malnutrition, sore throat, gait instability, thin built, dry eyes mrsa nare, possible bacteremia, possible contamination - Plan Plan: will start on bactroban cont on nasids artificial tears nutritional support yee rn Nutritional Asmnt/Malnutr-PDOC - Dietary Evaluation Malnutrition Findings (Please click <Entered> for more info): Nutritional Asmnt/Malnutrition Start: 08/12/16 12: 24 Text: Status: Complete Freq: Document 08/12/16 12:24 GSUN (Rec: 08/12/16 12:47 [email or web address] [email or web address]) Nutritional Asmnt/Malnutrition Patient General Information Nutritional Screening Moderate Risk Screening Diagnosis Paranoia, schizophrenia Pertinent Medical Hx/Surgical Hx Anemia, thin built, smoker, drinker, mild protein calorie malnutrition, schizophrenia Subjective Information 66 year old male from SNF. Pt was talkative, questionable historian, difficult to understand, rambled on. Pt report UBW 128lb, CBW via bedscale 137.3lb. Pt appeared overall thin, moderate wasting to temporals, chest, clavicles. Pt stated he is always hungry. Pt with few teeth intact, complained of food being pureed. RD explained current diet order to be ground. Pt stated he tolerated hamburger and crackers at [facility] without difficulties. Diet order from [facility]: mech soft , finely chopped, KB. Avg PO intake 83% past 3 days, meeting nutritional needs. Current Diet Order/ Nutrition Support Mech soft ground, KB Pertinent Medications Vitamin C, Colace, MOM, Seroquel, Zinc Sulfate Pertinent Labs Reviewed. 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 Current %PO Good (75-100%) Estimated Nutritional Goals Calories/Kcals/Kg IBW 178lb/80.9kg Kcals Calculated 2022-2427kcal (25-30kcal/kg) Protein g/kg: IBW Protein Calculated 81g (1g/kg) Fluid: ml 2022-2427ml (1ml/kcal) Nutritional Problem 1. Problem Problem Underweight related to Etiology unknown etiology, energy imbalance aeb Signs/Symptoms: BMI 18.6, BMI 17.4 using pt report UBW, moderate fat/ muscle depletion, thin built and mild protein calorie malnutrition noted in H&P Intervention/Recommendation Comments 1. Continue with [facility] ground KB diet. Pt expressed disatisfaction with pureed meals. RD explained current ground diet order. Pt noted with few teeth intact. Diet order at [facility]: [facility] soft, finely chopped, KB . 2. Recommend Boost BID for additional kcal and prot, promote weight gain. Expected Outcomes/Goals Expected Outcomes/Goals 1. PO intake to meet 100% of estimated nutritional needs. 2. Weight trend towards IBW. Physician Parameters for PEM Serum Albumin (g/dl) 3.5 - 5.0 (Normal)
--- NOTE | 2016-08-17 22:07 | Progress Notes ---
DATE: 08/17/2016 SUBJECTIVE: Chart reviewed and the patient interviewed. Also discussed the patient's condition with the staff and reviewed records and labs. The patient is still anxious and depressed. The patient also still seems to be preoccupied and actively responding to the stimuli. The patient is still reporting auditory hallucinations. Otherwise, the patient is more compliant with taking his medications and has not refused to take his medicine yesterday or today. ASSESSMENT: The patient is still psychotic. TREATMENT PLAN: We will continue monitoring his behavior closely. Also, continue Seroquel at a dose of 300 mg at bedtime and we will continue to follow up. [facility]# [id number]
[2016-08-18] MEDS: Multivitamin w/ Minerals Tab PO SCH (08:58)
[2016-08-18] MEDS: Artificial Tear Ophth Oint 3.5 Gm Tube EACH EYE SCH ×2 (09:46→17:20)
[2016-08-18] MEDS ORDERED: Haloperidol Lactate 5 mg/mL 1mL Vial IM ONE (14:08)
--- NOTE | 2016-08-18 14:51 | Internal Medicine Prog Note ---
Internal Medicine Subjective - Subjective Patient seen and examined:: with staff, chart reviewed Patient is:: awake, verbal, interactive Per staff patient is:: no adverse event, no episodes of fall, eating well, confused Internal Medicine Objective - Results Result Diagrams: 08/08/16 15:55 08/08/16 15:55 Recent Labs: Laboratory Last Values WBC 7.3 Th/cmm (4.8-10.8) 08/08/16 15:55 RBC 3.82 Mil/cmm (3.80-5.80) 08/08/16 15:55 Hgb 10.7 gm/dL (12.6-17.4) L 08/08/16 15:55 Hct 32.4 % (39.0-49.0) L 08/08/16 15:55 MCV 84.8 fl (80-99) 08/08/16 15:55 MCH 28.1 pg (27.0-31.0) 08/08/16 15:55 MCHC Differential 33.1 pg (28.0-36.0) 08/08/16 15:55 RDW 16.1 % (11.5-20.0) 08/08/16 15:55 Plt Count 305 Th/cmm (150-400) 08/08/16 15:55 MPV 7.6 fl 08/08/16 15:55 Neutrophils % 63.0 % (40.0-80.0) 08/08/16 15:55 Lymphocytes % 20.2 % (20.0-50.0) 08/08/16 15:55 Monocytes % 13.4 % (2.0-10.0) H 08/08/16 15:55 Eosinophils % 2.8 % (0.0-5.0) 08/08/16 15:55 Basophils % 0.6 % (0.0-2.0) 08/08/16 15:55 PT 10.5 SECONDS (9.5-11.5) 08/08/16 15:55 INR 1.01 (0.5-1.4) 08/08/16 15:55 PTT (Actin FS) 25.1 SECONDS (26.0-38.0) L 08/08/16 15:55 Sodium 136 mEq/L (136-145) 08/08/16 15:55 Potassium 4.1 mEq/L (3.5-5.1) 08/08/16 15:55 Chloride 107 mEq/L (98-107) 08/08/16 15:55 Carbon Dioxide 25.6 mEq/L (21.0-31.0) 08/08/16 15:55 Anion Gap 7.5 (7.0-16.0) 08/08/16 15:55 BUN 24 mg/dL (7-25) 08/08/16 15:55 Creatinine 0.6 mg/dL (0.7-1.3) L 08/08/16 15:55 Est GFR ( Amer) > 60.0 ml/min (>90) 08/08/16 15:55 Est GFR (Non-Af Amer) > 60.0 ml/min 08/08/16 15:55 BUN/Creatinine Ratio 40.0 08/08/16 15:55 Glucose 97 mg/dL (70-105) 08/08/16 15:55 Calcium 9.5 mg/dL (8.6-10.3) 08/08/16 15:55 Total Bilirubin 0.3 mg/dL (0.3-1.0) 08/08/16 15:55 AST 19 U/L (13-39) 08/08/16 15:55 ALT 18 U/L (7-52) 08/08/16 15:55 Alkaline Phosphatase 90 U/L (34-104) 08/08/16 15:55 Troponin I 0.05 ng/mL (0.01-0.05) 08/08/16 15:55 Total Protein 6.6 gm/dL (6.0-8.3) 08/08/16 15:55 Albumin 3.6 gm/dL (4.2-5.5) L 08/08/16 15:55 Globulin 3.0 gm/dL 08/08/16 15:55 Albumin/Globulin Ratio 1.2 (1.0-1.8) 08/08/16 15:55 Triglycerides 68 mg/dL (<150) 08/08/16 15:55 Cholesterol 187 mg/dL (<200) 08/08/16 15:55 LDL Cholesterol Direct 104 mg/dL (75-193) 08/08/16 15:55 HDL Cholesterol 76 mg/dL (23-92) 06/09/17 15:55 TSH 0.90 uIU/ml (0.34-5.60) 08/08/16 15:55 Urine Source CLEAN C 08/08/16 17:00 Urine Color YELLOW 08/08/16 17:00 Urine Clarity CLEAR (CLEAR) 08/08/16 17:00 Urine pH 6.0 08/08/16 17:00 Ur Specific [place] 1.030 (1.005-1.030) 08/08/16 17:00 Urine Protein NEGATIVE mg/dL (NEGATIVE) 08/08/16 17:00 Urine Glucose (UA) NEGATIVE mg/dL (NEGATIVE) 08/08/16 17:00 Urine Ketones NEGATIVE mg/dL (NEGATIVE) 08/08/16 17:00 Urine Blood NEGATIVE (NEGATIVE) 08/08/16 17:00 Urine Nitrate NEGATIVE (NEGATIVE) 08/08/16 17:00 Urine Bilirubin NEGATIVE (NEGATIVE) 08/08/16 17:00 Urine Urobilinogen 0.2 E.U./dL (0.2 - 1.0) 08/08/16 17:00 Ur Leukocyte Esterase NEGATIVE (NEGATIVE) 08/08/16 17:00 Urine RBC 0-1 /hpf (0-5) 08/08/16 17:00 Urine WBC 0-2 /hpf (0-5) 08/08/16 17:00 Ur Epithelial Cells FEW /lpf (FEW) 08/08/16 17:00 Urine Bacteria OCCASIONAL /hpf (NONE SEEN) 08/08/16 17:00 Urine Mucus FEW /lpf (FEW) 08/08/16 17:00 RPR NONREACTIVE (NONREACTIVE) 08/08/16 15:55 - Physical Exam Vitals and I&O: Vital Signs Temp 98.1 F 08/18/16 06:32 Pulse 64 08/18/16 06:32 Resp 20 08/18/16 06:32 BP 108/67 08/18/16 06:32 Pulse Ox 100 08/18/16 06:32 Intake & Output 08/17/16 08/18/16 08/18/16 18:59 06:59 18:59 Intake Total 2400 120 Balance 2400 120 Intake: Oral 2400 120 Other: # Voids 4 1 # Bowel Movements 1 0 Active Medications: Current Medications Al Hydrox/Mg Hydrox/Simethicone (Maalox) 30 ml PO Q6H PRN PRN Reason: Dyspepsia Stop: 10/07/16 18:42 Artificial Tears (Lubrifresh Ophth Oint) 1 appl EACH EYE BID MAURO Stop: 10/08/16 16:59 Last Admin: 08/18/16 09:46 Dose: Not Given Ascorbic Acid (Vitamin C) 500 mg PO DAILY MAURO Stop: 10/08/16 08:59 Last Admin: 08/18/16 08:58 Dose: 500 mg Benzocaine/Menthol (Cepacol) 1 agustin MM Q4HR PRN PRN Reason: Sore Throat Stop: 10/08/16 15:09 Last Admin: 08/14/16 16:39 Dose: 1 agustin Docusate Sodium (Colace) 100 mg PO DAILY MAURO Stop: 10/08/16 08:59 Last Admin: 08/18/16 09:46 Dose: Not Given Ibuprofen (Motrin) 600 mg PO TID PRN PRN Reason: Pain (Mild) Stop: 10/07/16 18:38 Last Admin: 08/17/16 04:18 Dose: 600 mg Lorazepam (Ativan) 0.5 mg PO Q4HR PRN; Protocol PRN Reason: Anxiety Stop: 10/07/16 18:50 Last Admin: 08/18/16 08:58 Dose: 0.5 mg Magnesium Hydroxide (Milk Of Magnesia) 30 ml PO HS PRN PRN Reason: Constipation Stop: 10/07/16 18:42 Mupirocin (Bactroban Oint) 1 appl TP BID MAURO Stop: 10/09/16 16:59 Last Admin: 08/18/16 09:47 Dose: 1 appl Quetiapine Fumarate (Seroquel) 400 mg PO HS MAURO PRN Reason: Protocol Stop: 10/17/16 12:17 Zinc Sulfate (Zinc Sulfate) 220 mg PO DAILY MAURO Stop: 10/08/16 08:59 Last Admin: 08/18/16 08:58 Dose: 220 mg Zolpidem Tartrate (Ambien) 5 mg PO HS PRN PRN Reason: Insomnia Stop: 10/07/16 18:38 Last Admin: 08/12/16 23:15 Dose: 5 mg General: alert HEENT: NC/AT, PERRLA Neck: Supple, No JVD Lungs: CTAB Cardiovascular: RRR, Normal S1, Normal S2 Abdomen: soft non-tender, globular, positive bowel sound Extremities: excoriation, contracture Neurological: no change, disorganized Internal Medicine Assmt/Plan - Assessment Assessment: Anemia, low albumin, mild protein-calorie malnutrition, sore throat, gait instability, thin built, dry eyes mrsa nare, possible bacteremia, possible contamination - Plan Plan: will start on bactroban cont on nasids artificial tears nutritional support yee rn Nutritional Asmnt/Malnutr-PDOC - Dietary Evaluation Malnutrition Findings (Please click <Entered> for more info): Nutritional Asmnt/Malnutrition Start: 08/12/16 12: 24 Text: Status: Complete Freq: Document 08/12/16 12:24 GSUN (Rec: 08/12/16 12:47 [email or web address] [id number]) Nutritional Asmnt/Malnutrition Patient General Information Nutritional Screening Moderate Risk Screening Diagnosis Paranoia, schizophrenia Pertinent Medical Hx/Surgical Hx Anemia, thin built, smoker, drinker, mild protein calorie malnutrition, schizophrenia Subjective Information 66 year old male from SNF. Pt was talkative, questionable historian, difficult to understand, rambled on. Pt report UBW 128lb, CBW via bedscale 137.3lb. Pt appeared overall thin, moderate wasting to temporals, chest, clavicles. Pt stated he is always hungry. Pt with few teeth intact, complained of food being pureed. RD explained current diet order to be ground. Pt stated he tolerated hamburger and crackers at [facility] without difficulties. Diet order from [facility]: mech soft , finely chopped, KB. Avg PO intake 83% past 3 days, meeting nutritional needs. Current Diet Order/ Nutrition Support Mech soft ground, KB Pertinent Medications Vitamin C, Colace, MOM, Seroquel, Zinc Sulfate Pertinent Labs Reviewed. 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 Current %PO Good (75-100%) Estimated Nutritional Goals Calories/Kcals/Kg IBW 178lb/80.9kg Kcals Calculated 2022-2427kcal (25-30kcal/kg) Protein g/kg: IBW Protein Calculated 81g (1g/kg) Fluid: ml 2022-2427ml (1ml/kcal) Nutritional Problem 1. Problem Problem Underweight related to Etiology unknown etiology, energy imbalance aeb Signs/Symptoms: BMI 18.6, BMI 17.4 using pt report UBW, moderate fat/ muscle depletion, thin built and mild protein calorie malnutrition noted in H&P Intervention/Recommendation Comments 1. Continue with [facility] ground KB diet. Pt expressed disatisfaction with pureed meals. RD explained current ground diet order. Pt noted with few teeth intact. Diet order at [facility]: [facility] soft, finely chopped, KB . 2. Recommend Boost BID for additional kcal and prot, promote weight gain. Expected Outcomes/Goals Expected Outcomes/Goals 1. PO intake to meet 100% of estimated nutritional needs. 2. Weight trend towards IBW. Physician Parameters for PEM Serum Albumin (g/dl) 3.5 - 5.0 (Normal)
--- NOTE | 2016-08-19 02:23 | Progress Notes ---
DATE: 08/18/2016 SUBJECTIVE: Case was discussed with staff of the patient, reviewed records. The patient continues to be yelling and screaming, unpredictable, impulsive, needing redirection. Continues to have poor insight. Continues to be unable to make safe plan for self care, responding to internal stimuli, easily agitated. He is compliant with the medication with no side effects, no sedation, no nausea, no extrapyramidal symptoms. PLAN: I will be increasing his Seroquel to 900 mg at bedtime and we will continue to work with the patient in group therapy, milieu therapy, adjust the medication as indicated, has wound care and he is on antibiotics for that topical. [facility]# [id number]
[2016-08-19] MEDS: Multivitamin w/ Minerals Tab PO SCH (10:02)
[2016-08-19] MEDS: Artificial Tear Ophth Oint 3.5 Gm Tube EACH EYE SCH ×2 (10:03→18:13)
--- NOTE | 2016-08-19 13:54 | Internal Medicine Prog Note ---
Internal Medicine Subjective - Subjective Service Date: 08/19/16 Patient seen and examined:: with staff Patient is:: awake Per staff patient is:: no adverse event Internal Medicine Objective - Results Result Diagrams: 08/08/16 15:55 08/08/16 15:55 Recent Labs: Laboratory Last Values WBC 7.3 Th/cmm (4.8-10.8) 08/08/16 15:55 RBC 3.82 Mil/cmm (3.80-5.80) 08/08/16 15:55 Hgb 10.7 gm/dL (12.6-17.4) L 08/08/16 15:55 Hct 32.4 % (39.0-49.0) L 08/08/16 15:55 MCV 84.8 fl (80-99) 08/08/16 15:55 MCH 28.1 pg (27.0-31.0) 08/08/16 15:55 MCHC Differential 33.1 pg (28.0-36.0) 08/08/16 15:55 RDW 16.1 % (11.5-20.0) 08/08/16 15:55 Plt Count 305 Th/cmm (150-400) 08/08/16 15:55 MPV 7.6 fl 08/08/16 15:55 Neutrophils % 63.0 % (40.0-80.0) 08/08/16 15:55 Lymphocytes % 20.2 % (20.0-50.0) 08/08/16 15:55 Monocytes % 13.4 % (2.0-10.0) H 08/08/16 15:55 Eosinophils % 2.8 % (0.0-5.0) 08/08/16 15:55 Basophils % 0.6 % (0.0-2.0) 08/08/16 15:55 PT 10.5 SECONDS (9.5-11.5) 08/08/16 15:55 INR 1.01 (0.5-1.4) 08/08/16 15:55 PTT (Actin FS) 25.1 SECONDS (26.0-38.0) L 08/08/16 15:55 Sodium 136 mEq/L (136-145) 08/08/16 15:55 Potassium 4.1 mEq/L (3.5-5.1) 08/08/16 15:55 Chloride 107 mEq/L (98-107) 08/08/16 15:55 Carbon Dioxide 25.6 mEq/L (21.0-31.0) 08/08/16 15:55 Anion Gap 7.5 (7.0-16.0) 08/08/16 15:55 BUN 24 mg/dL (7-25) 08/08/16 15:55 Creatinine 0.6 mg/dL (0.7-1.3) L 08/08/16 15:55 Est GFR ( Amer) > 60.0 ml/min (>90) 08/08/16 15:55 Est GFR (Non-Af Amer) > 60.0 ml/min 08/08/16 15:55 BUN/Creatinine Ratio 40.0 08/08/16 15:55 Glucose 97 mg/dL (70-105) 08/08/16 15:55 Calcium 9.5 mg/dL (8.6-10.3) 08/08/16 15:55 Total Bilirubin 0.3 mg/dL (0.3-1.0) 08/08/16 15:55 AST 19 U/L (13-39) 08/08/16 15:55 ALT 18 U/L (7-52) 08/08/16 15:55 Alkaline Phosphatase 90 U/L (34-104) 08/08/16 15:55 Troponin I 0.05 ng/mL (0.01-0.05) 08/08/16 15:55 Total Protein 6.6 gm/dL (6.0-8.3) 08/08/16 15:55 Albumin 3.6 gm/dL (4.2-5.5) L 08/08/16 15:55 Globulin 3.0 gm/dL 08/08/16 15:55 Albumin/Globulin Ratio 1.2 (1.0-1.8) 08/08/16 15:55 Triglycerides 68 mg/dL (<150) 08/08/16 15:55 Cholesterol 187 mg/dL (<200) 08/08/16 15:55 LDL Cholesterol Direct 104 mg/dL (75-193) 08/08/16 15:55 HDL Cholesterol 76 mg/dL (23-92) 08/08/16 15:55 TSH 0.90 uIU/ml (0.34-5.60) 08/08/16 15:55 Urine Source CLEAN C 08/08/16 17:00 Urine Color YELLOW 08/08/16 17:00 Urine Clarity CLEAR (CLEAR) 08/08/16 17:00 Urine pH 6.0 08/08/16 17:00 Ur Specific [place] 1.030 (1.005-1.030) 08/08/16 17:00 Urine Protein NEGATIVE mg/dL (NEGATIVE) 08/08/16 17:00 Urine Glucose (UA) NEGATIVE mg/dL (NEGATIVE) 08/08/16 17:00 Urine Ketones NEGATIVE mg/dL (NEGATIVE) 08/08/16 17:00 Urine Blood NEGATIVE (NEGATIVE) 08/08/16 17:00 Urine Nitrate NEGATIVE (NEGATIVE) 08/08/16 17:00 Urine Bilirubin NEGATIVE (NEGATIVE) 08/08/16 17:00 Urine Urobilinogen 0.2 E.U./dL (0.2 - 1.0) 08/08/16 17:00 Ur Leukocyte Esterase NEGATIVE (NEGATIVE) 08/08/16 17:00 Urine RBC 0-1 /hpf (0-5) 08/08/16 17:00 Urine WBC 0-2 /hpf (0-5) 08/08/16 17:00 Ur Epithelial Cells FEW /lpf (FEW) 08/08/16 17:00 Urine Bacteria OCCASIONAL /hpf (NONE SEEN) 08/08/16 17:00 Urine Mucus FEW /lpf (FEW) 08/08/16 17:00 RPR NONREACTIVE (NONREACTIVE) 08/08/16 15:55 - Physical Exam Vitals and I&O: Vital Signs Temp 97.3 F 08/19/16 06:57 Pulse 65 08/19/16 06:57 Resp 20 08/19/16 06:57 BP 134/78 08/19/16 06:57 Pulse Ox 97 08/19/16 06:57 Intake & Output 08/18/16 08/19/16 08/19/16 18:59 06:59 18:59 Intake Total 900 120 Balance 900 120 Intake: Oral 900 120 Other: # Voids 4 3 # Bowel Movements 1 0 Active Medications: Current Medications Al Hydrox/Mg Hydrox/Simethicone (Maalox) 30 ml PO Q6H PRN PRN Reason: Dyspepsia Stop: 10/07/16 18:42 Artificial Tears (Lubrifresh Ophth Oint) 1 appl EACH EYE BID MAURO Stop: 10/08/16 16:59 Last Admin: 08/19/16 10:03 Dose: 1 appl Ascorbic Acid (Vitamin C) 500 mg PO DAILY MAURO Stop: 10/08/16 08:59 Last Admin: 08/19/16 10:02 Dose: 500 mg Benzocaine/Menthol (Cepacol) 1 agustin MM Q4HR PRN PRN Reason: Sore Throat Stop: 10/08/16 15:09 Last Admin: 08/14/16 16:39 Dose: 1 agustin Divalproex Sodium (Depakote Sprinkle) 250 mg PO Q8HR MAURO PRN Reason: Protocol Stop: 10/18/16 12:59 Docusate Sodium (Colace) 100 mg PO DAILY [facility] Stop: 10/08/16 08:59 Last Admin: 08/19/16 10:03 Dose: Not Given Ibuprofen (Motrin) 600 mg PO TID PRN PRN Reason: Pain (Mild) Stop: 10/07/16 18:38 Last Admin: 08/17/16 04:18 Dose: 600 mg Lorazepam (Ativan) 0.5 mg PO Q4HR PRN; Protocol PRN Reason: Anxiety Stop: 10/07/16 18:50 Last Admin: 08/19/16 10:02 Dose: 0.5 mg Magnesium Hydroxide (Milk Of Magnesia) 30 ml PO HS PRN PRN Reason: Constipation Stop: 10/07/16 18:42 Mupirocin (Bactroban Oint) 1 appl TP BID MAURO Stop: 10/09/16 16:59 Last Admin: 08/19/16 10:03 Dose: 1 appl Quetiapine Fumarate (Seroquel) 400 mg PO HS MAURO PRN Reason: Protocol Stop: 10/17/16 12:17 Last Admin: 08/18/16 21:22 Dose: 400 mg Zinc Sulfate (Zinc Sulfate) 220 mg PO DAILY MAURO Stop: 10/08/16 08:59 Last Admin: 08/19/16 10:02 Dose: 220 mg Zolpidem Tartrate (Ambien) 5 mg PO HS PRN PRN Reason: Insomnia Stop: 10/07/16 18:38 Last Admin: 08/12/16 23:15 Dose: 5 mg General: alert HEENT: NC/AT, PERRLA, other Neck: Supple Lungs: CTAB Cardiovascular: RRR, Normal S1, Normal S2, without murmur Abdomen: soft non-tender, non-distended Extremities: clear Neurological: no change Internal Medicine Assmt/Plan - Assessment Assessment: Anemia, low albumin mild protein-calorie malnutrition, sore throat gait instability thin built dry eyes mrsa nare possible bacteremia possible contamination - Plan Plan: artificial tears monitor for safety cpm Nutritional Asmnt/Malnutr-PDOC - Dietary Evaluation Malnutrition Findings (Please click <Entered> for more info): Nutritional Asmnt/Malnutrition Start: 08/12/16 12: 24 Text: Status: Complete Freq: Document 08/12/16 12:24 GSUN (Rec: 08/12/16 12:47 [email or web address] [email or web address]) Nutritional Asmnt/Malnutrition Patient General Information Nutritional Screening Moderate Risk Screening Diagnosis Paranoia, schizophrenia Pertinent Medical Hx/Surgical Hx Anemia, thin built, smoker, drinker, mild protein calorie malnutrition, schizophrenia Subjective Information 66 year old male from SNF. Pt was talkative, questionable historian, difficult to understand, rambled on. Pt report UBW 128lb, CBW via bedscale 137.3lb. Pt appeared overall thin, moderate wasting to temporals, chest, clavicles. Pt stated he is always hungry. Pt with few teeth intact, complained of food being pureed. RD explained current diet order to be ground. Pt stated he tolerated hamburger and crackers at [facility] without difficulties. Diet order from [facility]: mech soft , finely chopped, KB. Avg PO intake 83% past 3 days, meeting nutritional needs. Current Diet Order/ Nutrition Support Mech soft ground, KB Pertinent Medications Vitamin C, Colace, MOM, Seroquel, Zinc Sulfate Pertinent Labs Reviewed. 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 Current %PO Good (75-100%) Estimated Nutritional Goals Calories/Kcals/Kg IBW 178lb/80.9kg Kcals Calculated 2022-2427kcal (25-30kcal/kg) Protein g/kg: IBW Protein Calculated 81g (1g/kg) Fluid: ml 2022-2427ml (1ml/kcal) Nutritional Problem 1. Problem Problem Underweight related to Etiology unknown etiology, energy imbalance aeb Signs/Symptoms: BMI 18.6, BMI 17.4 using pt report UBW, moderate fat/ muscle depletion, thin built and mild protein calorie malnutrition noted in H&P Intervention/Recommendation Comments 1. Continue with [facility] ground KB diet. Pt expressed disatisfaction with pureed meals. RD explained current ground diet order. Pt noted with few teeth intact. Diet order at [facility]: [facility] soft, finely chopped, KB . 2. Recommend Boost BID for additional kcal and prot, promote weight gain. Expected Outcomes/Goals Expected Outcomes/Goals 1. PO intake to meet 100% of estimated nutritional needs. 2. Weight trend towards IBW. Physician Parameters for PEM Serum Albumin (g/dl) 3.5 - 5.0 (Normal)
--- NOTE | 2016-08-20 02:50 | Progress Notes ---
DATE: 08/19/2016 Case was discussed with staff of the patient, reviewed records. The patient continues to be irritable. He had to be medicated yesterday. He continues to have poor insight. Continues to be unable to make safe plan for self-care. He was rambling. He reports I hate displays. He is unpredictable, impulsive. He is tolerating increase in Seroquel, which was done yesterday to 400 mg at bedtime with no side effects, no sedation, no nausea, and no extrapyramidal symptoms. I will be initiating also Depakote to this patient because of his impulsive behavior and so far discussed side effects and we will continue to work with the patient in group therapy, milieu therapy, and adjust the medication as needed. JOB# [id number]
[2016-08-20] MEDS: Artificial Tear Ophth Oint 3.5 Gm Tube EACH EYE SCH ×2 (09:17→17:08)
[2016-08-20] MEDS: Multivitamin w/ Minerals Tab PO SCH (09:17)
--- NOTE | 2016-08-20 13:14 | Internal Medicine Prog Note ---
Internal Medicine Subjective - Subjective Service Date: 08/20/16 Patient seen and examined:: with staff Patient is:: awake Per staff patient is:: no adverse event Internal Medicine Objective - Results Result Diagrams: 08/08/16 15:55 08/08/16 15:55 Recent Labs: Laboratory Last Values WBC 7.3 Th/cmm (4.8-10.8) 08/08/16 15:55 RBC 3.82 Mil/cmm (3.80-5.80) 08/08/16 15:55 Hgb 10.7 gm/dL (12.6-17.4) L 08/08/16 15:55 Hct 32.4 % (39.0-49.0) L 08/08/16 15:55 MCV 84.8 fl (80-99) 08/08/16 15:55 MCH 28.1 pg (27.0-31.0) 08/08/16 15:55 MCHC Differential 33.1 pg (28.0-36.0) 08/08/16 15:55 RDW 16.1 % (11.5-20.0) 08/08/16 15:55 Plt Count 305 Th/cmm (150-400) 08/08/16 15:55 MPV 7.6 fl 08/08/16 15:55 Neutrophils % 63.0 % (40.0-80.0) 08/08/16 15:55 Lymphocytes % 20.2 % (20.0-50.0) 08/08/16 15:55 Monocytes % 13.4 % (2.0-10.0) H 08/08/16 15:55 Eosinophils % 2.8 % (0.0-5.0) 08/08/16 15:55 Basophils % 0.6 % (0.0-2.0) 08/08/16 15:55 PT 10.5 SECONDS (9.5-11.5) 08/08/16 15:55 INR 1.01 (0.5-1.4) 08/08/16 15:55 PTT (Actin FS) 25.1 SECONDS (26.0-38.0) L 08/08/16 15:55 Sodium 136 mEq/L (136-145) 08/08/16 15:55 Potassium 4.1 mEq/L (3.5-5.1) 08/08/16 15:55 Chloride 107 mEq/L (98-107) 08/08/16 15:55 Carbon Dioxide 25.6 mEq/L (21.0-31.0) 08/08/16 15:55 Anion Gap 7.5 (7.0-16.0) 08/08/16 15:55 BUN 24 mg/dL (7-25) 08/08/16 15:55 Creatinine 0.6 mg/dL (0.7-1.3) L 08/08/16 15:55 Est GFR ( Amer) > 60.0 ml/min (>90) 08/08/16 15:55 Est GFR (Non-Af Amer) > 60.0 ml/min 08/08/16 15:55 BUN/Creatinine Ratio 40.0 08/08/16 15:55 Glucose 97 mg/dL (70-105) 08/08/16 15:55 Calcium 9.5 mg/dL (8.6-10.3) 08/08/16 15:55 Total Bilirubin 0.3 mg/dL (0.3-1.0) 08/08/16 15:55 AST 19 U/L (13-39) 08/08/16 15:55 ALT 18 U/L (7-52) 08/08/16 15:55 Alkaline Phosphatase 90 U/L (34-104) 08/08/16 15:55 Troponin I 0.05 ng/mL (0.01-0.05) 08/08/16 15:55 Total Protein 6.6 gm/dL (6.0-8.3) 08/08/16 15:55 Albumin 3.6 gm/dL (4.2-5.5) L 08/08/16 15:55 Globulin 3.0 gm/dL 08/08/16 15:55 Albumin/Globulin Ratio 1.2 (1.0-1.8) 08/08/16 15:55 Triglycerides 68 mg/dL (<150) 08/08/16 15:55 Cholesterol 187 mg/dL (<200) 08/08/16 15:55 LDL Cholesterol Direct 104 mg/dL (75-193) 08/08/16 15:55 HDL Cholesterol 76 mg/dL (23-92) 08/08/16 15:55 TSH 0.90 uIU/ml (0.34-5.60) 08/08/16 15:55 Urine Source CLEAN C 08/08/16 17:00 Urine Color YELLOW 08/08/16 17:00 Urine Clarity CLEAR (CLEAR) 08/08/16 17:00 Urine pH 6.0 08/08/16 17:00 Ur Specific [place] 1.030 (1.005-1.030) 08/08/16 17:00 Urine Protein NEGATIVE mg/dL (NEGATIVE) 08/08/16 17:00 Urine Glucose (UA) NEGATIVE mg/dL (NEGATIVE) 08/08/16 17:00 Urine Ketones NEGATIVE mg/dL (NEGATIVE) 08/08/16 17:00 Urine Blood NEGATIVE (NEGATIVE) 08/08/16 17:00 Urine Nitrate NEGATIVE (NEGATIVE) 08/08/16 17:00 Urine Bilirubin NEGATIVE (NEGATIVE) 08/08/16 17:00 Urine Urobilinogen 0.2 E.U./dL (0.2 - 1.0) 08/08/16 17:00 Ur Leukocyte Esterase NEGATIVE (NEGATIVE) 08/08/16 17:00 Urine RBC 0-1 /hpf (0-5) 08/08/16 17:00 Urine WBC 0-2 /hpf (0-5) 08/08/16 17:00 Ur Epithelial Cells FEW /lpf (FEW) 08/08/16 17:00 Urine Bacteria OCCASIONAL /hpf (NONE SEEN) 08/08/16 17:00 Urine Mucus FEW /lpf (FEW) 08/08/16 17:00 RPR NONREACTIVE (NONREACTIVE) 08/08/16 15:55 - Physical Exam Vitals and I&O: Vital Signs Temp 98.2 F 08/20/16 06:39 Pulse 64 08/20/16 06:39 Resp 20 08/20/16 06:39 BP 108/55 08/20/16 06:39 Pulse Ox 97 08/20/16 06:39 Intake & Output 08/19/16 08/20/16 08/20/16 18:59 06:59 18:59 Intake Total 950 240 Balance 950 240 Intake: Oral 950 240 Other: # Voids 4 2 # Bowel Movements 1 0 Active Medications: Current Medications Al Hydrox/Mg Hydrox/Simethicone (Maalox) 30 ml PO Q6H PRN PRN Reason: Dyspepsia Stop: 10/07/16 18:42 Artificial Tears (Lubrifresh Ophth Oint) 1 appl EACH EYE BID MAURO Stop: 10/08/16 16:59 Last Admin: 08/20/16 09:17 Dose: 1 appl Ascorbic Acid (Vitamin C) 500 mg PO DAILY MAURO Stop: 10/08/16 08:59 Last Admin: 08/20/16 09:17 Dose: 500 mg Benzocaine/Menthol (Cepacol) 1 agustin MM Q4HR PRN PRN Reason: Sore Throat Stop: 10/08/16 15:09 Last Admin: 08/14/16 16:39 Dose: 1 agustin Divalproex Sodium (Depakote Sprinkle) 250 mg PO Q8HR MAURO PRN Reason: Protocol Stop: 10/18/16 12:59 Last Admin: 08/20/16 05:28 Dose: 250 mg Docusate Sodium (Colace) 100 mg PO DAILY MAURO Stop: 10/08/16 08:59 Last Admin: 08/20/16 09:17 Dose: 100 mg Ibuprofen (Motrin) 600 mg PO TID PRN PRN Reason: Pain (Mild) Stop: 10/07/16 18:38 Last Admin: 08/17/16 04:18 Dose: 600 mg Lorazepam (Ativan) 0.5 mg PO Q4HR PRN; Protocol PRN Reason: Anxiety Stop: 10/07/16 18:50 Last Admin: 08/19/16 10:02 Dose: 0.5 mg Magnesium Hydroxide (Milk Of Magnesia) 30 ml PO HS PRN PRN Reason: Constipation Stop: 10/07/16 18:42 Mupirocin (Bactroban Oint) 1 appl TP BID MAURO Stop: 10/09/16 16:59 Last Admin: 08/20/16 09:17 Dose: 1 appl Quetiapine Fumarate 400 mg/ (Quetiapine Fumarate 50 mg) 450 mg PO HS MAURO Stop: 10/19/16 20:59 Zinc Sulfate (Zinc Sulfate) 220 mg PO DAILY MAURO Stop: 10/08/16 08:59 Last Admin: 08/20/16 09:17 Dose: 220 mg Zolpidem Tartrate (Ambien) 5 mg PO HS PRN PRN Reason: Insomnia Stop: 10/07/16 18:38 Last Admin: 08/12/16 23:15 Dose: 5 mg General: alert HEENT: NC/AT, PERRLA Neck: Supple Lungs: CTAB Cardiovascular: RRR, Normal S1, Normal S2, without murmur Abdomen: soft non-tender, non-distended Extremities: clear Internal Medicine Assmt/Plan - Assessment Assessment: Anemia, low albumin mild protein-calorie malnutrition, sore throat gait instability thin built dry eyes mrsa nare possible bacteremia possible contamination - Plan Plan: artificial tears monitor for safety cpm Nutritional Asmnt/Malnutr-PDOC - Dietary Evaluation Malnutrition Findings (Please click <Entered> for more info): Nutritional Asmnt/Malnutrition Start: 08/12/16 12: 24 Text: Status: Complete Freq: Document 08/12/16 12:24 GSUN (Rec: 08/12/16 12:47 GSUN [id number]) Nutritional Asmnt/Malnutrition Patient General Information Nutritional Screening Moderate Risk Screening Diagnosis Paranoia, schizophrenia Pertinent Medical Hx/Surgical Hx Anemia, thin built, smoker, drinker, mild protein calorie malnutrition, schizophrenia Subjective Information 66 year old male from SNF. Pt was talkative, questionable historian, difficult to understand, rambled on. Pt report UBW 128lb, CBW via bedscale 137.3lb. Pt appeared overall thin, moderate wasting to temporals, chest, clavicles. Pt stated he is always hungry. Pt with few teeth intact, complained of food being pureed. RD explained current diet order to be ground. Pt stated he tolerated hamburger and crackers at [facility] without difficulties. Diet order from [facility]: mech soft , finely chopped, KB. Avg PO intake 83% past 3 days, meeting nutritional needs. Current Diet Order/ Nutrition Support Mech soft ground, KB Pertinent Medications Vitamin C, Colace, MOM, Seroquel, Zinc Sulfate Pertinent Labs Reviewed. 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 Current %PO Good (75-100%) Estimated Nutritional Goals Calories/Kcals/Kg IBW 178lb/80.9kg Kcals Calculated 2022-2427kcal (25-30kcal/kg) Protein g/kg: IBW Protein Calculated 81g (1g/kg) Fluid: ml 2022-2427ml (1ml/kcal) Nutritional Problem 1. Problem Problem Underweight related to Etiology unknown etiology, energy imbalance aeb Signs/Symptoms: BMI 18.6, BMI 17.4 using pt report UBW, moderate fat/ muscle depletion, thin built and mild protein calorie malnutrition noted in H&P Intervention/Recommendation Comments 1. Continue with [facility] ground KB diet. Pt expressed disatisfaction with pureed meals. RD explained current ground diet order. Pt noted with few teeth intact. Diet order at [facility]: [facility] soft, finely chopped, KB . 2. Recommend Boost BID for additional kcal and prot, promote weight gain. Expected Outcomes/Goals Expected Outcomes/Goals 1. PO intake to meet 100% of estimated nutritional needs. 2. Weight trend towards IBW. Physician Parameters for PEM Serum Albumin (g/dl) 3.5 - 5.0 (Normal)
--- NOTE | 2016-08-20 19:11 | Progress Notes ---
DATE: 08/20/2016 SUBJECTIVE: Case was discussed with staff of the patient, reviewed records. The patient continues to be rambling, continues to have poor insight. Continues to be irritable, continues to need redirection. He is compliant with the medication with no side effects and I did initiate Depakote on him, it was started yesterday, so I we will give him more time before adjusting the dose. I will be, however, increasing the dose of Seroquel to 450 and he is still unpredictable, impulsive, he denies any side effects from the medication. Denies any sedation, no extrapyramidal symptoms, and we will continue to work with the patient in group therapy, milieu therapy, adjust the medication as needed. [facility]# [id number]
[2016-08-20] MEDS ORDERED: QUEtiapine Fumarate 400 MG, QUEtiapine Fumarate 50 MG PO SCH (21:00)
[2016-08-21] MEDS: Artificial Tear Ophth Oint 3.5 Gm Tube EACH EYE SCH ×2 (08:39→16:24)
[2016-08-21] MEDS: Multivitamin w/ Minerals Tab PO SCH (08:39)
--- NOTE | 2016-08-21 14:41 | Internal Medicine Prog Note ---
Internal Medicine Subjective - Subjective Service Date: 08/21/16 Patient seen and examined:: with staff Patient is:: awake Internal Medicine Objective - Results Result Diagrams: 08/08/16 15:55 08/08/16 15:55 Recent Labs: Laboratory Last Values WBC 7.3 Th/cmm (4.8-10.8) 08/08/16 15:55 RBC 3.82 Mil/cmm (3.80-5.80) 08/08/16 15:55 Hgb 10.7 gm/dL (12.6-17.4) L 08/08/16 15:55 Hct 32.4 % (39.0-49.0) L 08/08/16 15:55 MCV 84.8 fl (80-99) 08/08/16 15:55 MCH 28.1 pg (27.0-31.0) 08/08/16 15:55 MCHC Differential 33.1 pg (28.0-36.0) 08/08/16 15:55 RDW 16.1 % (11.5-20.0) 08/08/16 15:55 Plt Count 305 Th/cmm (150-400) 08/08/16 15:55 MPV 7.6 fl 08/08/16 15:55 Neutrophils % 63.0 % (40.0-80.0) 08/08/16 15:55 Lymphocytes % 20.2 % (20.0-50.0) 08/08/16 15:55 Monocytes % 13.4 % (2.0-10.0) H 08/08/16 15:55 Eosinophils % 2.8 % (0.0-5.0) 08/08/16 15:55 Basophils % 0.6 % (0.0-2.0) 08/08/16 15:55 PT 10.5 SECONDS (9.5-11.5) 08/08/16 15:55 INR 1.01 (0.5-1.4) 08/08/16 15:55 PTT (Actin FS) 25.1 SECONDS (26.0-38.0) L 08/08/16 15:55 Sodium 136 mEq/L (136-145) 08/08/16 15:55 Potassium 4.1 mEq/L (3.5-5.1) 06/09/17 15:55 Chloride 107 mEq/L (98-107) 08/08/16 15:55 Carbon Dioxide 25.6 mEq/L (21.0-31.0) 08/08/16 15:55 Anion Gap 7.5 (7.0-16.0) 08/08/16 15:55 BUN 24 mg/dL (7-25) 08/08/16 15:55 Creatinine 0.6 mg/dL (0.7-1.3) L 08/08/16 15:55 Est GFR ( Amer) > 60.0 ml/min (>90) 08/08/16 15:55 Est GFR (Non-Af Amer) > 60.0 ml/min 08/08/16 15:55 BUN/Creatinine Ratio 40.0 08/08/16 15:55 Glucose 97 mg/dL (70-105) 08/08/16 15:55 Calcium 9.5 mg/dL (8.6-10.3) 08/08/16 15:55 Total Bilirubin 0.3 mg/dL (0.3-1.0) 08/08/16 15:55 AST 19 U/L (13-39) 08/08/16 15:55 ALT 18 U/L (7-52) 08/08/16 15:55 Alkaline Phosphatase 90 U/L (34-104) 08/08/16 15:55 Troponin I 0.05 ng/mL (0.01-0.05) 08/08/16 15:55 Total Protein 6.6 gm/dL (6.0-8.3) 08/08/16 15:55 Albumin 3.6 gm/dL (4.2-5.5) L 08/08/16 15:55 Globulin 3.0 gm/dL 08/08/16 15:55 Albumin/Globulin Ratio 1.2 (1.0-1.8) 08/08/16 15:55 Triglycerides 68 mg/dL (<150) 08/08/16 15:55 Cholesterol 187 mg/dL (<200) 08/08/16 15:55 LDL Cholesterol Direct 104 mg/dL (75-193) 08/08/16 15:55 HDL Cholesterol 76 mg/dL (23-92) 08/08/16 15:55 TSH 0.90 uIU/ml (0.34-5.60) 08/08/16 15:55 Urine Source CLEAN C 08/08/16 17:00 Urine Color YELLOW 08/08/16 17:00 Urine Clarity CLEAR (CLEAR) 08/08/16 17:00 Urine pH 6.0 08/08/16 17:00 Ur Specific [place] 1.030 (1.005-1.030) 08/08/16 17:00 Urine Protein NEGATIVE mg/dL (NEGATIVE) 08/08/16 17:00 Urine Glucose (UA) NEGATIVE mg/dL (NEGATIVE) 08/08/16 17:00 Urine Ketones NEGATIVE mg/dL (NEGATIVE) 08/08/16 17:00 Urine Blood NEGATIVE (NEGATIVE) 08/08/16 17:00 Urine Nitrate NEGATIVE (NEGATIVE) 08/08/16 17:00 Urine Bilirubin NEGATIVE (NEGATIVE) 08/08/16 17:00 Urine Urobilinogen 0.2 E.U./dL (0.2 - 1.0) 08/08/16 17:00 Ur Leukocyte Esterase NEGATIVE (NEGATIVE) 08/08/16 17:00 Urine RBC 0-1 /hpf (0-5) 08/08/16 17:00 Urine WBC 0-2 /hpf (0-5) 08/08/16 17:00 Ur Epithelial Cells FEW /lpf (FEW) 08/08/16 17:00 Urine Bacteria OCCASIONAL /hpf (NONE SEEN) 08/08/16 17:00 Urine Mucus FEW /lpf (FEW) 08/08/16 17:00 RPR NONREACTIVE (NONREACTIVE) 08/08/16 15:55 - Physical Exam Vitals and I&O: Vital Signs Temp 97.4 F 08/21/16 07:22 Pulse 72 08/21/16 07:22 Resp 19 08/21/16 07:22 BP 134/70 08/21/16 07:22 Pulse Ox 99 08/21/16 07:22 Intake & Output 08/20/16 08/21/16 08/21/16 18:59 06:59 18:59 Intake Total 2400 Balance 2400 Intake: Oral 2400 Other: # Voids 4 2 # Bowel Movements 0 Stool Characteristics Soft Active Medications: Current Medications Al Hydrox/Mg Hydrox/Simethicone (Maalox) 30 ml PO Q6H PRN PRN Reason: Dyspepsia Stop: 10/07/16 18:42 Artificial Tears (Lubrifresh Ophth Oint) 1 appl EACH EYE BID [facility] Stop: 10/08/16 16:59 Last Admin: 08/21/16 08:39 Dose: 1 appl Ascorbic Acid (Vitamin C) 500 mg PO DAILY [facility] Stop: 10/08/16 08:59 Last Admin: 08/21/16 08:39 Dose: 500 mg Benzocaine/Menthol (Cepacol) 1 agustin MM Q4HR PRN PRN Reason: Sore Throat Stop: 10/08/16 15:09 Last Admin: 08/14/16 16:39 Dose: 1 agustin Divalproex Sodium (Depakote Sprinkle) 250 mg PO Q8HR [facility] PRN Reason: Protocol Stop: 10/18/16 12:59 Last Admin: 08/21/16 14:28 Dose: 250 mg Docusate Sodium (Colace) 100 mg PO DAILY [facility] Stop: 10/08/16 08:59 Last Admin: 08/21/16 08:39 Dose: 100 mg Ibuprofen (Motrin) 600 mg PO TID PRN PRN Reason: Pain (Mild) Stop: 10/07/16 18:38 Last Admin: 08/17/16 04:18 Dose: 600 mg Lorazepam (Ativan) 0.5 mg PO Q4HR PRN; Protocol PRN Reason: Anxiety Stop: 10/07/16 18:50 Last Admin: 08/20/16 13:38 Dose: 0.5 mg Magnesium Hydroxide (Milk Of Magnesia) 30 ml PO HS PRN PRN Reason: Constipation Stop: 10/07/16 18:42 Mupirocin (Bactroban Oint) 1 appl TP BID [facility] Stop: 10/09/16 16:59 Last Admin: 08/21/16 08:39 Dose: 1 appl Risperidone (Risperdal) 1 mg PO BID [facility] PRN Reason: Protocol Stop: 10/20/16 16:59 Zinc Sulfate (Zinc Sulfate) 220 mg PO DAILY [facility] Stop: 10/08/16 08:59 Last Admin: 08/21/16 08:39 Dose: 220 mg Zolpidem Tartrate (Ambien) 5 mg PO HS PRN PRN Reason: Insomnia Stop: 10/07/16 18:38 Last Admin: 08/12/16 23:15 Dose: 5 mg Internal Medicine Assmt/Plan - Assessment Assessment: Anemia, low albumin mild protein-calorie malnutrition, sore throat gait instability thin built dry eyes mrsa nare possible bacteremia possible contamination - Plan Plan: artificial tears monitor for safety cpm Nutritional Asmnt/Malnutr-PDOC - Dietary Evaluation Malnutrition Findings (Please click <Entered> for more info): Nutritional Asmnt/Malnutrition Start: 08/12/16 12: 24 Text: Status: Complete Freq: Document 08/12/16 12:24 GSUN (Rec: 08/12/16 12:47 [email or web address] [email or web address]) Nutritional Asmnt/Malnutrition Patient General Information Nutritional Screening Moderate Risk Screening Diagnosis Paranoia, schizophrenia Pertinent Medical Hx/Surgical Hx Anemia, thin built, smoker, drinker, mild protein calorie malnutrition, schizophrenia Subjective Information 66 year old male from SNF. Pt was talkative, questionable historian, difficult to understand, rambled on. Pt report UBW 128lb, CBW via bedscale 137.3lb. Pt appeared overall thin, moderate wasting to temporals, chest, clavicles. Pt stated he is always hungry. Pt with few teeth intact, complained of food being pureed. RD explained current diet order to be ground. Pt stated he tolerated hamburger and crackers at [facility] without difficulties. Diet order from [facility]: mech soft , finely chopped, KB. Avg PO intake 83% past 3 days, meeting nutritional needs. Current Diet Order/ Nutrition Support Mech soft ground, KB Pertinent Medications Vitamin C, Colace, MOM, Seroquel, Zinc Sulfate Pertinent Labs Reviewed. 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 Current %PO Good (75-100%) Estimated Nutritional Goals Calories/Kcals/Kg IBW 178lb/80.9kg Kcals Calculated 2022-7kcal (25-30kcal/kg) Protein g/kg: IBW Protein Calculated 81g (1g/kg) Fluid: ml 2022-2427ml (1ml/kcal) Nutritional Problem 1. Problem Problem Underweight related to Etiology unknown etiology, energy imbalance aeb Signs/Symptoms: BMI 18.6, BMI 17.4 using pt report UBW, moderate fat/ muscle depletion, thin built and mild protein calorie malnutrition noted in H&P Intervention/Recommendation Comments 1. Continue with [facility] ground KB diet. Pt expressed disatisfaction with pureed meals. RD explained current ground diet order. Pt noted with few teeth intact. Diet order at [facility]: [facility] soft, finely chopped, KB . 2. Recommend Boost BID for additional kcal and prot, promote weight gain. Expected Outcomes/Goals Expected Outcomes/Goals 1. PO intake to meet 100% of estimated nutritional needs. 2. Weight trend towards IBW. Physician Parameters for PEM Serum Albumin (g/dl) 3.5 - 5.0 (Normal)
[2016-08-21] MEDS: risperiDONE 1 mg/mL 30 mL Bottle PO SCH (16:24)
--- NOTE | 2016-08-21 21:44 | Progress Notes ---
DATE: 08/21/2016 SUBJECTIVE: Case was discussed with staff of the patient, reviewed records. The patient continues to be irritable, talking to himself. He has not shown much progress despite increasing the Seroquel dose, so I will be discontinuing the medication since he has not shown much progress on it and instead I will be giving him Risperdal. Discussed side effects. He is still rambling, talking to himself, unable to participate in a meaningful conversation or make safe plan for self-care. He is not sleeping well. Unable to make safe plan for self-care. He will be started on Risperdal 1 mg twice a day. We will continue to work with the patient in group therapy, milieu therapy, adjust the medication as needed. JOB# [id number]
[2016-08-22] MEDS: Multivitamin w/ Minerals Tab PO SCH (09:27)
[2016-08-22] MEDS: Artificial Tear Ophth Oint 3.5 Gm Tube EACH EYE SCH ×2 (09:27→17:05)
[2016-08-22] MEDS: risperiDONE 1 mg/mL 30 mL Bottle PO SCH ×2 (09:31→17:11)
--- NOTE | 2016-08-22 14:42 | Internal Medicine Prog Note ---
Internal Medicine Subjective - Subjective Service Date: 08/22/16 Patient seen and examined:: with staff Patient is:: awake Internal Medicine Objective - Results Result Diagrams: 08/08/16 15:55 08/08/16 15:55 Recent Labs: Laboratory Last Values WBC 7.3 Th/cmm (4.8-10.8) 08/08/16 15:55 RBC 3.82 Mil/cmm (3.80-5.80) 08/08/16 15:55 Hgb 10.7 gm/dL (12.6-17.4) L 08/08/16 15:55 Hct 32.4 % (39.0-49.0) L 08/08/16 15:55 MCV 84.8 fl (80-99) 08/08/16 15:55 MCH 28.1 pg (27.0-31.0) 08/08/16 15:55 MCHC Differential 33.1 pg (28.0-36.0) 08/08/16 15:55 RDW 16.1 % (11.5-20.0) 08/08/16 15:55 Plt Count 305 Th/cmm (150-400) 08/08/16 15:55 MPV 7.6 fl 08/08/16 15:55 Neutrophils % 63.0 % (40.0-80.0) 08/08/16 15:55 Lymphocytes % 20.2 % (20.0-50.0) 08/08/16 15:55 Monocytes % 13.4 % (2.0-10.0) H 08/08/16 15:55 Eosinophils % 2.8 % (0.0-5.0) 08/08/16 15:55 Basophils % 0.6 % (0.0-2.0) 08/08/16 15:55 PT 10.5 SECONDS (9.5-11.5) 08/08/16 15:55 INR 1.01 (0.5-1.4) 08/08/16 15:55 PTT (Actin FS) 25.1 SECONDS (26.0-38.0) L 08/08/16 15:55 Sodium 136 mEq/L (136-145) 08/08/16 15:55 Potassium 4.1 mEq/L (3.5-5.1) 06/09/17 15:55 Chloride 107 mEq/L (98-107) 08/08/16 15:55 Carbon Dioxide 25.6 mEq/L (21.0-31.0) 08/08/16 15:55 Anion Gap 7.5 (7.0-16.0) 08/08/16 15:55 BUN 24 mg/dL (7-25) 08/08/16 15:55 Creatinine 0.6 mg/dL (0.7-1.3) L 08/08/16 15:55 Est GFR ( Amer) > 60.0 ml/min (>90) 08/08/16 15:55 Est GFR (Non-Af Amer) > 60.0 ml/min 08/08/16 15:55 BUN/Creatinine Ratio 40.0 08/08/16 15:55 Glucose 97 mg/dL (70-105) 08/08/16 15:55 Calcium 9.5 mg/dL (8.6-10.3) 08/08/16 15:55 Total Bilirubin 0.3 mg/dL (0.3-1.0) 08/08/16 15:55 AST 19 U/L (13-39) 08/08/16 15:55 ALT 18 U/L (7-52) 08/08/16 15:55 Alkaline Phosphatase 90 U/L (34-104) 08/08/16 15:55 Troponin I 0.05 ng/mL (0.01-0.05) 08/08/16 15:55 Total Protein 6.6 gm/dL (6.0-8.3) 08/08/16 15:55 Albumin 3.6 gm/dL (4.2-5.5) L 08/08/16 15:55 Globulin 3.0 gm/dL 08/08/16 15:55 Albumin/Globulin Ratio 1.2 (1.0-1.8) 08/08/16 15:55 Triglycerides 68 mg/dL (<150) 08/08/16 15:55 Cholesterol 187 mg/dL (<200) 08/08/16 15:55 LDL Cholesterol Direct 104 mg/dL (75-193) 08/08/16 15:55 HDL Cholesterol 76 mg/dL (23-92) 08/08/16 15:55 TSH 0.90 uIU/ml (0.34-5.60) 08/08/16 15:55 Urine Source CLEAN C 08/08/16 17:00 Urine Color YELLOW 08/08/16 17:00 Urine Clarity CLEAR (CLEAR) 08/08/16 17:00 Urine pH 6.0 08/08/16 17:00 Ur Specific [place] 1.030 (1.005-1.030) 08/08/16 17:00 Urine Protein NEGATIVE mg/dL (NEGATIVE) 08/08/16 17:00 Urine Glucose (UA) NEGATIVE mg/dL (NEGATIVE) 08/08/16 17:00 Urine Ketones NEGATIVE mg/dL (NEGATIVE) 08/08/16 17:00 Urine Blood NEGATIVE (NEGATIVE) 08/08/16 17:00 Urine Nitrate NEGATIVE (NEGATIVE) 08/08/16 17:00 Urine Bilirubin NEGATIVE (NEGATIVE) 08/08/16 17:00 Urine Urobilinogen 0.2 E.U./dL (0.2 - 1.0) 08/08/16 17:00 Ur Leukocyte Esterase NEGATIVE (NEGATIVE) 08/08/16 17:00 Urine RBC 0-1 /hpf (0-5) 08/08/16 17:00 Urine WBC 0-2 /hpf (0-5) 08/08/16 17:00 Ur Epithelial Cells FEW /lpf (FEW) 08/08/16 17:00 Urine Bacteria OCCASIONAL /hpf (NONE SEEN) 08/08/16 17:00 Urine Mucus FEW /lpf (FEW) 08/08/16 17:00 RPR NONREACTIVE (NONREACTIVE) 08/08/16 15:55 - Physical Exam Vitals and I&O: Vital Signs Temp 97 F 08/22/16 06:28 Pulse 62 08/22/16 06:28 Resp 20 08/22/16 08:00 BP 132/72 08/22/16 06:28 Pulse Ox 99 08/22/16 06:28 Intake & Output 08/21/16 08/22/16 08/22/16 18:59 06:59 18:59 Intake Total 2200 120 Balance 2200 120 Intake: Oral 2200 120 Other: # Voids 4 3 # Bowel Movements 0 Stool Characteristics Soft Active Medications: Current Medications Al Hydrox/Mg Hydrox/Simethicone (Maalox) 30 ml PO Q6H PRN PRN Reason: Dyspepsia Stop: 10/07/16 18:42 Artificial Tears (Lubrifresh Ophth Oint) 1 appl EACH EYE BID [facility]O Stop: 10/08/16 16:59 Last Admin: 08/22/16 09:27 Dose: 1 appl Ascorbic Acid (Vitamin C) 500 mg PO DAILY [facility] Stop: 10/08/16 08:59 Last Admin: 08/22/16 09:27 Dose: 500 mg Benzocaine/Menthol (Cepacol) 1 agustin MM Q4HR PRN PRN Reason: Sore Throat Stop: 10/08/16 15:09 Last Admin: 08/14/16 16:39 Dose: 1 agustin Divalproex Sodium (Depakote Sprinkle) 250 mg PO Q8HR MAURO PRN Reason: Protocol Stop: 10/18/16 12:59 Last Admin: 08/22/16 06:21 Dose: Not Given Docusate Sodium (Colace) 100 mg PO DAILY [facility] Stop: 10/08/16 08:59 Last Admin: 08/22/16 09:30 Dose: Not Given Ibuprofen (Motrin) 600 mg PO TID PRN PRN Reason: Pain (Mild) Stop: 10/07/16 18:38 Last Admin: 08/17/16 04:18 Dose: 600 mg Lorazepam (Ativan) 0.5 mg PO Q4HR PRN; Protocol PRN Reason: Anxiety Stop: 10/07/16 18:50 Last Admin: 08/20/16 13:38 Dose: 0.5 mg Magnesium Hydroxide (Milk Of Magnesia) 30 ml PO HS PRN PRN Reason: Constipation Stop: 10/07/16 18:42 Mupirocin (Bactroban Oint) 1 appl TP BID [facility] Stop: 10/09/16 16:59 Last Admin: 08/22/16 09:27 Dose: 1 appl Risperidone (Risperdal) 2 mg PO BID MAURO PRN Reason: Protocol Stop: 10/21/16 12:27 Zinc Sulfate (Zinc Sulfate) 220 mg PO DAILY [facility] Stop: 10/08/16 08:59 Last Admin: 08/22/16 09:27 Dose: 220 mg Zolpidem Tartrate (Ambien) 5 mg PO HS PRN PRN Reason: Insomnia Stop: 10/07/16 18:38 Last Admin: 08/12/16 23:15 Dose: 5 mg HEENT: NC/AT, PERRLA Neck: Supple Internal Medicine Assmt/Plan - Assessment Assessment: Anemia, low albumin mild protein-calorie malnutrition, sore throat gait instability thin built dry eyes mrsa nare possible bacteremia possible contamination - Plan Plan: artificial tears monitor for safety cpm Nutritional Asmnt/Malnutr-PDOC - Dietary Evaluation Malnutrition Findings (Please click <Entered> for more info): Nutritional Asmnt/Malnutrition Start: 08/12/16 12: 24 Text: Status: Complete Freq: Document 08/12/16 12:24 GSUN (Rec: 08/12/16 12:47 GSUN [id number]) Nutritional Asmnt/Malnutrition Patient General Information Nutritional Screening Moderate Risk Screening Diagnosis Paranoia, schizophrenia Pertinent Medical Hx/Surgical Hx Anemia, thin built, smoker, drinker, mild protein calorie malnutrition, schizophrenia Subjective Information 66 year old male from SNF. Pt was talkative, questionable historian, difficult to understand, rambled on. Pt report UBW 128lb, CBW via bedscale 137.3lb. Pt appeared overall thin, moderate wasting to temporals, chest, clavicles. Pt stated he is always hungry. Pt with few teeth intact, complained of food being pureed. RD explained current diet order to be ground. Pt stated he tolerated hamburger and crackers at [facility] without difficulties. Diet order from [facility]: mech soft , finely chopped, KB. Avg PO intake 83% past 3 days, meeting nutritional needs. Current Diet Order/ Nutrition Support Mech soft ground, KB Pertinent Medications Vitamin C, Colace, MOM, Seroquel, Zinc Sulfate Pertinent Labs Reviewed. 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 Current %PO Good (75-100%) Estimated Nutritional Goals Calories/Kcals/Kg IBW 178lb/80.9kg Kcals Calculated 2022-2426kcal (25-30kcal/kg) Protein g/kg: IBW Protein Calculated 81g (1g/kg) Fluid: ml 2022-2427ml (1ml/kcal) Nutritional Problem 1. Problem Problem Underweight related to Etiology unknown etiology, energy imbalance aeb Signs/Symptoms: BMI 18.6, BMI 17.4 using pt report UBW, moderate fat/ muscle depletion, thin built and mild protein calorie malnutrition noted in H&P Intervention/Recommendation Comments 1. Continue with [facility] ground KB diet. Pt expressed disatisfaction with pureed meals. RD explained current ground diet order. Pt noted with few teeth intact. Diet order at [facility]: [facility] soft, finely chopped, KB . 2. Recommend Boost BID for additional kcal and prot, promote weight gain. Expected Outcomes/Goals Expected Outcomes/Goals 1. PO intake to meet 100% of estimated nutritional needs. 2. Weight trend towards IBW. Physician Parameters for PEM Serum Albumin (g/dl) 3.5 - 5.0 (Normal)
--- NOTE | 2016-08-23 04:00 | Progress Notes ---
DATE: 08/22/2016 Case was discussed with staff of the patient, reviewed records. The patient continues to be rambling, irritable, isolating himself, talking to himself. Continues to look disheveled, disorganized, internally preoccupied. He is compliant with the medication with no side effects, no sedation, no nausea, no extrapyramidal symptoms, and I did initiate the patient on Risperdal yesterday, I will be increasing the dose to 2 mg a day and so far, no side effects, no sedation, no nausea, no extrapyramidal symptoms and we will continue to work with the patient in group therapy, milieu therapy, adjust the medication as needed. [facility]# [id number]
[2016-08-23] MEDS: Multivitamin w/ Minerals Tab PO SCH (08:21)
[2016-08-23] MEDS: risperiDONE 1 mg/mL 30 mL Bottle PO SCH ×2 (08:21→17:43)
--- NOTE | 2016-08-23 09:32 | Internal Medicine Prog Note ---
Internal Medicine Subjective - Subjective Service Date: 08/23/16 Patient seen and examined:: with staff Patient is:: awake Per staff patient has:: no adverse event Internal Medicine Objective - Results Result Diagrams: 08/08/16 15:55 08/08/16 15:55 Recent Labs: Laboratory Last Values WBC 7.3 Th/cmm (4.8-10.8) 08/08/16 15:55 RBC 3.82 Mil/cmm (3.80-5.80) 08/08/16 15:55 Hgb 10.7 gm/dL (12.6-17.4) L 08/08/16 15:55 Hct 32.4 % (39.0-49.0) L 08/08/16 15:55 MCV 84.8 fl (80-99) 08/08/16 15:55 MCH 28.1 pg (27.0-31.0) 08/08/16 15:55 MCHC Differential 33.1 pg (28.0-36.0) 08/08/16 15:55 RDW 16.1 % (11.5-20.0) 08/08/16 15:55 Plt Count 305 Th/cmm (150-400) 08/08/16 15:55 MPV 7.6 fl 08/08/16 15:55 Neutrophils % 63.0 % (40.0-80.0) 08/08/16 15:55 Lymphocytes % 20.2 % (20.0-50.0) 08/08/16 15:55 Monocytes % 13.4 % (2.0-10.0) H 08/08/16 15:55 Eosinophils % 2.8 % (0.0-5.0) 08/08/16 15:55 Basophils % 0.6 % (0.0-2.0) 08/08/16 15:55 PT 10.5 SECONDS (9.5-11.5) 08/08/16 15:55 INR 1.01 (0.5-1.4) 08/08/16 15:55 PTT (Actin FS) 25.1 SECONDS (26.0-38.0) L 08/08/16 15:55 Sodium 136 mEq/L (136-145) 08/08/16 15:55 Potassium 4.1 mEq/L (3.5-5.1) 08/08/16 15:55 Chloride 107 mEq/L (98-107) 08/08/16 15:55 Carbon Dioxide 25.6 mEq/L (21.0-31.0) 08/08/16 15:55 Anion Gap 7.5 (7.0-16.0) 08/08/16 15:55 BUN 24 mg/dL (7-25) 08/08/16 15:55 Creatinine 0.6 mg/dL (0.7-1.3) L 08/08/16 15:55 Est GFR ( Amer) > 60.0 ml/min (>90) 08/08/16 15:55 Est GFR (Non-Af Amer) > 60.0 ml/min 08/08/16 15:55 BUN/Creatinine Ratio 40.0 08/08/16 15:55 Glucose 97 mg/dL (70-105) 08/08/16 15:55 Calcium 9.5 mg/dL (8.6-10.3) 08/08/16 15:55 Total Bilirubin 0.3 mg/dL (0.3-1.0) 08/08/16 15:55 AST 19 U/L (13-39) 08/08/16 15:55 ALT 18 U/L (7-52) 08/08/16 15:55 Alkaline Phosphatase 90 U/L (34-104) 08/08/16 15:55 Troponin I 0.05 ng/mL (0.01-0.05) 08/08/16 15:55 Total Protein 6.6 gm/dL (6.0-8.3) 08/08/16 15:55 Albumin 3.6 gm/dL (4.2-5.5) L 08/08/16 15:55 Globulin 3.0 gm/dL 08/08/16 15:55 Albumin/Globulin Ratio 1.2 (1.0-1.8) 08/08/16 15:55 Triglycerides 68 mg/dL (<150) 08/08/16 15:55 Cholesterol 187 mg/dL (<200) 08/08/16 15:55 LDL Cholesterol Direct 104 mg/dL (75-193) 08/08/16 15:55 HDL Cholesterol 76 mg/dL (23-92) 08/08/16 15:55 TSH 0.90 uIU/ml (0.34-5.60) 08/08/16 15:55 Urine Source CLEAN C 08/08/16 17:00 Urine Color YELLOW 08/08/16 17:00 Urine Clarity CLEAR (CLEAR) 08/08/16 17:00 Urine pH 6.0 08/08/16 17:00 Ur Specific [place] 1.030 (1.005-1.030) 08/08/16 17:00 Urine Protein NEGATIVE mg/dL (NEGATIVE) 08/08/16 17:00 Urine Glucose (UA) NEGATIVE mg/dL (NEGATIVE) 08/08/16 17:00 Urine Ketones NEGATIVE mg/dL (NEGATIVE) 08/08/16 17:00 Urine Blood NEGATIVE (NEGATIVE) 08/08/16 17:00 Urine Nitrate NEGATIVE (NEGATIVE) 08/08/16 17:00 Urine Bilirubin NEGATIVE (NEGATIVE) 08/08/16 17:00 Urine Urobilinogen 0.2 E.U./dL (0.2 - 1.0) 08/08/16 17:00 Ur Leukocyte Esterase NEGATIVE (NEGATIVE) 08/08/16 17:00 Urine RBC 0-1 /hpf (0-5) 08/08/16 17:00 Urine WBC 0-2 /hpf (0-5) 08/08/16 17:00 Ur Epithelial Cells FEW /lpf (FEW) 08/08/16 17:00 Urine Bacteria OCCASIONAL /hpf (NONE SEEN) 08/08/16 17:00 Urine Mucus FEW /lpf (FEW) 08/08/16 17:00 RPR NONREACTIVE (NONREACTIVE) 08/08/16 15:55 - Physical Exam Vitals and I&O: Vital Signs Temp 97.4 F 08/23/16 07:24 Pulse 75 08/23/16 07:24 Resp 18 08/23/16 07:24 BP 127/64 08/23/16 07:24 Pulse Ox 98 08/23/16 07:24 Intake & Output 08/22/16 08/23/16 08/23/16 18:59 06:59 18:59 Intake Total 960 Balance 960 Intake: Oral 960 Other: # Voids 3 1 # Bowel Movements 1 2 Active Medications: Current Medications Al Hydrox/Mg Hydrox/Simethicone (Maalox) 30 ml PO Q6H PRN PRN Reason: Dyspepsia Stop: 10/07/16 18:42 Artificial Tears (Lubrifresh Ophth Oint) 1 appl EACH EYE BID [facility] Stop: 10/08/16 16:59 Last Admin: 08/22/16 17:05 Dose: 1 appl Ascorbic Acid (Vitamin C) 500 mg PO DAILY [facility] Stop: 10/08/16 08:59 Last Admin: 08/23/16 08:21 Dose: 500 mg Benzocaine/Menthol (Cepacol) 1 agustin MM Q4HR PRN PRN Reason: Sore Throat Stop: 10/08/16 15:09 Last Admin: 08/14/16 16:39 Dose: 1 agustin Divalproex Sodium (Depakote Sprinkle) 250 mg PO Q8HR [facility] PRN Reason: Protocol Stop: 10/18/16 12:59 Last Admin: 08/23/16 05:42 Dose: 250 mg Docusate Sodium (Colace) 100 mg PO DAILY [facility] Stop: 10/08/16 08:59 Last Admin: 08/23/16 08:31 Dose: Not Given Ibuprofen (Motrin) 600 mg PO TID PRN PRN Reason: Pain (Mild) Stop: 10/07/16 18:38 Last Admin: 08/17/16 04:18 Dose: 600 mg Lorazepam (Ativan) 0.5 mg PO Q4HR PRN; Protocol PRN Reason: Anxiety Stop: 10/07/16 18:50 Last Admin: 08/20/16 13:38 Dose: 0.5 mg Magnesium Hydroxide (Milk Of Magnesia) 30 ml PO HS PRN PRN Reason: Constipation Stop: 10/07/16 18:42 Mupirocin (Bactroban Oint) 1 appl TP BID [facility] Stop: 10/09/16 16:59 Last Admin: 08/23/16 08:21 Dose: 1 appl Risperidone (Risperdal) 2 mg PO BID [facility] PRN Reason: Protocol Stop: 10/21/16 12:27 Last Admin: 08/23/16 08:21 Dose: 2 mg Zinc Sulfate (Zinc Sulfate) 220 mg PO DAILY [facility] Stop: 10/08/16 08:59 Last Admin: 08/23/16 08:21 Dose: 220 mg Zolpidem Tartrate (Ambien) 5 mg PO HS PRN PRN Reason: Insomnia Stop: 10/07/16 18:38 Last Admin: 08/12/16 23:15 Dose: 5 mg HEENT: NC/AT, PERRLA Neck: Supple Internal Medicine Assmt/Plan - Assessment Assessment: Anemia, low albumin mild protein-calorie malnutrition, sore throat gait instability thin built dry eyes mrsa nare possible bacteremia possible contamination - Plan Plan: artificial tears monitor for safety cpm Nutritional Asmnt/Malnutr-PDOC - Dietary Evaluation Malnutrition Findings (Please click <Entered> for more info): Nutritional Asmnt/Malnutrition Start: 08/12/16 12: 24 Text: Status: Complete Freq: Document 08/12/16 12:24 GSUN (Rec: 08/12/16 12:47 [email or web address] [email or web address]) Nutritional Asmnt/Malnutrition Patient General Information Nutritional Screening Moderate Risk Screening Diagnosis Paranoia, schizophrenia Pertinent Medical Hx/Surgical Hx Anemia, thin built, smoker, drinker, mild protein calorie malnutrition, schizophrenia Subjective Information 66 year old male from SNF. Pt was talkative, questionable historian, difficult to understand, rambled on. Pt report UBW 128lb, CBW via bedscale 137.3lb. Pt appeared overall thin, moderate wasting to temporals, chest, clavicles. Pt stated he is always hungry. Pt with few teeth intact, complained of food being pureed. RD explained current diet order to be ground. Pt stated he tolerated hamburger and crackers at [facility] without difficulties. Diet order from [facility]: mech soft , finely chopped, KB. Avg PO intake 83% past 3 days, meeting nutritional needs. Current Diet Order/ Nutrition Support Mech soft ground, BK Pertinent Medications Vitamin C, Colace, MOM, Seroquel, Zinc Sulfate Pertinent Labs Reviewed. 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 Current %PO Good (75-100%) Estimated Nutritional Goals Calories/Kcals/Kg IBW 178lb/80.9kg Kcals Calculated 2022-2427kcal (25-30kcal/kg) Protein g/kg: IBW Protein Calculated 81g (1g/kg) Fluid: ml 2022-2427ml (1ml/kcal) Nutritional Problem 1. Problem Problem Underweight related to Etiology unknown etiology, energy imbalance aeb Signs/Symptoms: BMI 18.6, BMI 17.4 using pt report UBW, moderate fat/ muscle depletion, thin built and mild protein calorie malnutrition noted in H&P Intervention/Recommendation Comments 1. Continue with [facility] ground KB diet. Pt expressed disatisfaction with pureed meals. RD explained current ground diet order. Pt noted with few teeth intact. Diet order at [facility]: [facility] soft, finely chopped, KB . 2. Recommend Boost BID for additional kcal and prot, promote weight gain. Expected Outcomes/Goals Expected Outcomes/Goals 1. PO intake to meet 100% of estimated nutritional needs. 2. Weight trend towards IBW. Physician Parameters for PEM Serum Albumin (g/dl) 3.5 - 5.0 (Normal)
[2016-08-23] MEDS: Artificial Tear Ophth Oint 3.5 Gm Tube EACH EYE SCH (17:43)
--- NOTE | 2016-08-23 20:17 | Progress Notes ---
DATE: 08/23/2016 SUBJECTIVE: The patient seen, chart reviewed, discussed with staff. The patient is under the care of Dr. Morgan. Currently in the hospital, history of schizophrenia, poor med compliance, feeling that people were tracking him, perseverative, states he is homeless, rambling about the diet, not making much sense, loud, upset, irritable, unable to tell me basic plans for food, clothing and senior living. Staff noting he remains irritable, talking to himself, rambling, still with evidence of psychosis, eating with prompting, ADLs with prompting. ASSESSMENT: The patient remains symptomatic, rambling, paranoid. PLAN: Given recent dose increase of Risperdal, we will continue to monitor. We will titrate medications and continue to target his behavioral disturbances. [facility]# [id number]
[2016-08-24] MEDS: Multivitamin w/ Minerals Tab PO SCH (08:54)
[2016-08-24] MEDS: risperiDONE 1 mg/mL 30 mL Bottle PO SCH ×2 (08:54→17:29)
[2016-08-24] MEDS: Artificial Tear Ophth Oint 3.5 Gm Tube EACH EYE SCH ×2 (08:55→17:29)
--- NOTE | 2016-08-24 16:40 | Internal Medicine Prog Note ---
Internal Medicine Subjective - Subjective Service Date: 08/24/16 Patient seen and examined:: with staff Patient is:: awake Per staff patient has:: no adverse event Internal Medicine Objective - Results Result Diagrams: 08/08/16 15:55 08/08/16 15:55 Recent Labs: Laboratory Last Values WBC 7.3 Th/cmm (4.8-10.8) 08/08/16 15:55 RBC 3.82 Mil/cmm (3.80-5.80) 08/08/16 15:55 Hgb 10.7 gm/dL (12.6-17.4) L 08/08/16 15:55 Hct 32.4 % (39.0-49.0) L 08/08/16 15:55 MCV 84.8 fl (80-99) 08/08/16 15:55 MCH 28.1 pg (27.0-31.0) 08/08/16 15:55 MCHC Differential 33.1 pg (28.0-36.0) 08/08/16 15:55 RDW 16.1 % (11.5-20.0) 08/08/16 15:55 Plt Count 305 Th/cmm (150-400) 08/08/16 15:55 MPV 7.6 fl 08/08/16 15:55 Neutrophils % 63.0 % (40.0-80.0) 08/08/16 15:55 Lymphocytes % 20.2 % (20.0-50.0) 08/08/16 15:55 Monocytes % 13.4 % (2.0-10.0) H 08/08/16 15:55 Eosinophils % 2.8 % (0.0-5.0) 08/08/16 15:55 Basophils % 0.6 % (0.0-2.0) 08/08/16 15:55 PT 10.5 SECONDS (9.5-11.5) 08/08/16 15:55 INR 1.01 (0.5-1.4) 08/08/16 15:55 PTT (Actin FS) 25.1 SECONDS (26.0-38.0) L 08/08/16 15:55 Sodium 136 mEq/L (136-145) 08/08/16 15:55 Potassium 4.1 mEq/L (3.5-5.1) 08/08/16 15:55 Chloride 107 mEq/L (98-107) 08/08/16 15:55 Carbon Dioxide 25.6 mEq/L (21.0-31.0) 08/08/16 15:55 Anion Gap 7.5 (7.0-16.0) 08/08/16 15:55 BUN 24 mg/dL (7-25) 08/08/16 15:55 Creatinine 0.6 mg/dL (0.7-1.3) L 08/08/16 15:55 Est GFR ( Amer) > 60.0 ml/min (>90) 08/08/16 15:55 Est GFR (Non-Af Amer) > 60.0 ml/min 08/08/16 15:55 BUN/Creatinine Ratio 40.0 08/08/16 15:55 Glucose 97 mg/dL (70-105) 08/08/16 15:55 Calcium 9.5 mg/dL (8.6-10.3) 08/08/16 15:55 Total Bilirubin 0.3 mg/dL (0.3-1.0) 08/08/16 15:55 AST 19 U/L (13-39) 08/08/16 15:55 ALT 18 U/L (7-52) 08/08/16 15:55 Alkaline Phosphatase 90 U/L (34-104) 08/08/16 15:55 Troponin I 0.05 ng/mL (0.01-0.05) 08/08/16 15:55 Total Protein 6.6 gm/dL (6.0-8.3) 08/08/16 15:55 Albumin 3.6 gm/dL (4.2-5.5) L 08/08/16 15:55 Globulin 3.0 gm/dL 08/08/16 15:55 Albumin/Globulin Ratio 1.2 (1.0-1.8) 08/08/16 15:55 Triglycerides 68 mg/dL (<150) 08/08/16 15:55 Cholesterol 187 mg/dL (<200) 08/08/16 15:55 LDL Cholesterol Direct 104 mg/dL (75-193) 08/08/16 15:55 HDL Cholesterol 76 mg/dL (23-92) 08/08/16 15:55 TSH 0.90 uIU/ml (0.34-5.60) 08/08/16 15:55 Urine Source CLEAN C 08/08/16 17:00 Urine Color YELLOW 08/08/16 17:00 Urine Clarity CLEAR (CLEAR) 08/08/16 17:00 Urine pH 6.0 08/08/16 17:00 Ur Specific [place] 1.030 (1.005-1.030) 08/08/16 17:00 Urine Protein NEGATIVE mg/dL (NEGATIVE) 08/08/16 17:00 Urine Glucose (UA) NEGATIVE mg/dL (NEGATIVE) 08/08/16 17:00 Urine Ketones NEGATIVE mg/dL (NEGATIVE) 08/08/16 17:00 Urine Blood NEGATIVE (NEGATIVE) 08/08/16 17:00 Urine Nitrate NEGATIVE (NEGATIVE) 08/08/16 17:00 Urine Bilirubin NEGATIVE (NEGATIVE) 08/08/16 17:00 Urine Urobilinogen 0.2 E.U./dL (0.2 - 1.0) 08/08/16 17:00 Ur Leukocyte Esterase NEGATIVE (NEGATIVE) 08/08/16 17:00 Urine RBC 0-1 /hpf (0-5) 08/08/16 17:00 Urine WBC 0-2 /hpf (0-5) 08/08/16 17:00 Ur Epithelial Cells FEW /lpf (FEW) 08/08/16 17:00 Urine Bacteria OCCASIONAL /hpf (NONE SEEN) 08/08/16 17:00 Urine Mucus FEW /lpf (FEW) 08/08/16 17:00 RPR NONREACTIVE (NONREACTIVE) 08/08/16 15:55 - Physical Exam Vitals and I&O: Vital Signs Temp 98.0 F 08/24/16 15:33 Pulse 73 08/24/16 15:33 Resp 20 08/24/16 15:33 BP 117/69 08/24/16 15:33 Pulse Ox 98 08/24/16 15:33 Intake & Output 08/23/16 08/24/16 08/24/16 18:59 06:59 18:59 Intake Total 950 240 Balance 950 240 Intake: Oral 950 240 Other: # Voids 4 1 # Bowel Movements 1 Active Medications: Current Medications Acetaminophen (Tylenol) 650 mg PO Q6H PRN PRN Reason: Pain (Mild) Stop: 10/22/16 10:16 Al Hydrox/Mg Hydrox/Simethicone (Maalox) 30 ml PO Q6H PRN PRN Reason: Dyspepsia Stop: 10/07/16 18:42 Artificial Tears (Lubrifresh Ophth Oint) 1 appl EACH EYE BID [facility] Stop: 10/08/16 16:59 Last Admin: 08/24/16 08:55 Dose: 1 appl Ascorbic Acid (Vitamin C) 500 mg PO DAILY [facility] Stop: 10/08/16 08:59 Last Admin: 08/24/16 08:54 Dose: 500 mg Benzocaine/Menthol (Cepacol) 1 agustin MM Q4HR PRN PRN Reason: Sore Throat Stop: 10/08/16 15:09 Last Admin: 08/14/16 16:39 Dose: 1 agustin Divalproex Sodium (Depakote Sprinkle) 250 mg PO Q8HR [facility] PRN Reason: Protocol Stop: 10/18/16 12:59 Last Admin: 08/24/16 12:32 Dose: 250 mg Docusate Sodium (Colace) 100 mg PO DAILY [facility] Stop: 10/08/16 08:59 Last Admin: 08/24/16 08:54 Dose: 100 mg Ibuprofen (Motrin) 600 mg PO TID PRN PRN Reason: Pain (Mild) Stop: 10/07/16 18:38 Last Admin: 08/24/16 07:05 Dose: 600 mg Lorazepam (Ativan) 0.5 mg PO Q4HR PRN; Protocol PRN Reason: Anxiety Stop: 10/07/16 18:50 Last Admin: 08/24/16 08:54 Dose: 0.5 mg Magnesium Hydroxide (Milk Of Magnesia) 30 ml PO HS PRN PRN Reason: Constipation Stop: 10/07/16 18:42 Mupirocin (Bactroban Oint) 1 appl TP BID [facility] Stop: 10/09/16 16:59 Last Admin: 08/24/16 08:54 Dose: 1 appl Risperidone (Risperdal) 2 mg PO BID [facility] PRN Reason: Protocol Stop: 10/21/16 12:27 Last Admin: 08/24/16 08:54 Dose: 2 mg Zinc Sulfate (Zinc Sulfate) 220 mg PO DAILY [facility] Stop: 10/08/16 08:59 Last Admin: 08/24/16 08:54 Dose: 220 mg Zolpidem Tartrate (Ambien) 5 mg PO HS PRN PRN Reason: Insomnia Stop: 10/07/16 18:38 Last Admin: 08/12/16 23:15 Dose: 5 mg General: alert HEENT: NC/AT Neck: Supple Internal Medicine Assmt/Plan - Assessment Assessment: Anemia, low albumin mild protein-calorie malnutrition, sore throat gait instability thin built dry eyes mrsa nare possible bacteremia possible contamination - Plan Plan: artificial tears monitor for safety cpm Nutritional Asmnt/Malnutr-PDOC - Dietary Evaluation Malnutrition Findings (Please click <Entered> for more info): Nutritional Asmnt/Malnutrition Start: 08/12/16 12: 24 Text: Status: Complete Freq: Document 08/12/16 12:24 GSUN (Rec: 08/12/16 12:47 GSUN [id number]) Nutritional Asmnt/Malnutrition Patient General Information Nutritional Screening Moderate Risk Screening Diagnosis Paranoia, schizophrenia Pertinent Medical Hx/Surgical Hx Anemia, thin built, smoker, drinker, mild protein calorie malnutrition, schizophrenia Subjective Information 66 year old male from SNF. Pt was talkative, questionable historian, difficult to understand, rambled on. Pt report UBW 128lb, CBW via bedscale 137.3lb. Pt appeared overall thin, moderate wasting to temporals, chest, clavicles. Pt stated he is always hungry. Pt with few teeth intact, complained of food being pureed. RD explained current diet order to be ground. Pt stated he tolerated hamburger and crackers at [facility] without difficulties. Diet order from [facility]: mech soft , finely chopped, KB. Avg PO intake 83% past 3 days, meeting nutritional needs. Current Diet Order/ Nutrition Support Mech soft ground, KB Pertinent Medications Vitamin C, Colace, MOM, Seroquel, Zinc Sulfate Pertinent Labs Reviewed. 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 Current %PO Good (75-100%) Estimated Nutritional Goals Calories/Kcals/Kg IBW 178lb/80.9kg Kcals Calculated 2022-2427kcal (25-30kcal/kg) Protein g/kg: IBW Protein Calculated 81g (1g/kg) Fluid: ml 2022-2427ml (1ml/kcal) Nutritional Problem 1. Problem Problem Underweight related to Etiology unknown etiology, energy imbalance aeb Signs/Symptoms: BMI 18.6, BMI 17.4 using pt report UBW, moderate fat/ muscle depletion, thin built and mild protein calorie malnutrition noted in H&P Intervention/Recommendation Comments 1. Continue with [facility] ground KB diet. Pt expressed disatisfaction with pureed meals. RD explained current ground diet order. Pt noted with few teeth intact. Diet order at [facility]: [facility] soft, finely chopped, KB . 2. Recommend Boost BID for additional kcal and prot, promote weight gain. Expected Outcomes/Goals Expected Outcomes/Goals 1. PO intake to meet 100% of estimated nutritional needs. 2. Weight trend towards IBW. Physician Parameters for PEM Serum Albumin (g/dl) 3.5 - 5.0 (Normal)
--- NOTE | 2016-08-24 22:05 | Progress Notes ---
DATE: 08/24/2016 SUBJECTIVE: The patient seen, chart reviewed, discussed with staff. The patient is currently in the hospital, rambling, nonsensical, disoriented, irritable, talking to himself. Dr. Morgan has been making medication adjustments because he has shown little progress, still acting out behaviors, still in a [place] chair, still trying to get up, needing a lot of supervision by staff because of dangerous, impulsive, unpredictable behaviors. Medications reviewed. Labs were reviewed, currently on Risperdal. The patient seems quite confused and disoriented, sleeping fairly well. ASSESSMENT AND PLAN: The patient remains impulsive, unpredictable, still with behavioral disturbances, apparent history of schizophrenia. PLAN: We will continue to monitor. Given recent dose increase medications, we will hold ____ 2 mg twice daily, but plan will be to increase over the next few days. We will monitor and follow up. JOB# [id number]
[2016-08-25] MEDS: risperiDONE 1 mg/mL 30 mL Bottle PO SCH ×2 (09:52→17:46)
[2016-08-25] MEDS: Artificial Tear Ophth Oint 3.5 Gm Tube EACH EYE SCH ×2 (09:52→17:51)
[2016-08-25] MEDS: Multivitamin w/ Minerals Tab PO SCH (09:54)
--- NOTE | 2016-08-25 10:05 | Internal Medicine Prog Note ---
Internal Medicine Subjective - Subjective Patient seen and examined:: with staff, chart reviewed Patient is:: awake, verbal, interactive, ambulating, denies any new complaints, confused Per staff patient has:: no adverse event, no episodes of fall, eating well, confused, tolerating meds Internal Medicine Objective - Results Result Diagrams: 08/08/16 15:55 08/08/16 15:55 Recent Labs: Laboratory Last Values WBC 7.3 Th/cmm (4.8-10.8) 08/08/16 15:55 RBC 3.82 Mil/cmm (3.80-5.80) 08/08/16 15:55 Hgb 10.7 gm/dL (12.6-17.4) L 08/08/16 15:55 Hct 32.4 % (39.0-49.0) L 08/08/16 15:55 MCV 84.8 fl (80-99) 08/08/16 15:55 MCH 28.1 pg (27.0-31.0) 08/08/16 15:55 MCHC Differential 33.1 pg (28.0-36.0) 08/08/16 15:55 RDW 16.1 % (11.5-20.0) 08/08/16 15:55 Plt Count 305 Th/cmm (150-400) 08/08/16 15:55 MPV 7.6 fl 08/08/16 15:55 Neutrophils % 63.0 % (40.0-80.0) 08/08/16 15:55 Lymphocytes % 20.2 % (20.0-50.0) 08/08/16 15:55 Monocytes % 13.4 % (2.0-10.0) H 08/08/16 15:55 Eosinophils % 2.8 % (0.0-5.0) 08/08/16 15:55 Basophils % 0.6 % (0.0-2.0) 08/08/16 15:55 PT 10.5 SECONDS (9.5-11.5) 08/08/16 15:55 INR 1.01 (0.5-1.4) 08/08/16 15:55 PTT (Actin FS) 25.1 SECONDS (26.0-38.0) L 08/08/16 15:55 Sodium 136 mEq/L (136-145) 08/08/16 15:55 Potassium 4.1 mEq/L (3.5-5.1) 08/08/16 15:55 Chloride 107 mEq/L (98-107) 08/08/16 15:55 Carbon Dioxide 25.6 mEq/L (21.0-31.0) 08/08/16 15:55 Anion Gap 7.5 (7.0-16.0) 08/08/16 15:55 BUN 24 mg/dL (7-25) 08/08/16 15:55 Creatinine 0.6 mg/dL (0.7-1.3) L 08/08/16 15:55 Est GFR ( Amer) > 60.0 ml/min (>90) 08/08/16 15:55 Est GFR (Non-Af Amer) > 60.0 ml/min 08/08/16 15:55 BUN/Creatinine Ratio 40.0 08/08/16 15:55 Glucose 97 mg/dL (70-105) 08/08/16 15:55 Calcium 9.5 mg/dL (8.6-10.3) 08/08/16 15:55 Total Bilirubin 0.3 mg/dL (0.3-1.0) 08/08/16 15:55 AST 19 U/L (13-39) 08/08/16 15:55 ALT 18 U/L (7-52) 08/08/16 15:55 Alkaline Phosphatase 90 U/L (34-104) 08/08/16 15:55 Troponin I 0.05 ng/mL (0.01-0.05) 08/08/16 15:55 Total Protein 6.6 gm/dL (6.0-8.3) 08/08/16 15:55 Albumin 3.6 gm/dL (4.2-5.5) L 08/08/16 15:55 Globulin 3.0 gm/dL 08/08/16 15:55 Albumin/Globulin Ratio 1.2 (1.0-1.8) 08/08/16 15:55 Triglycerides 68 mg/dL (<150) 08/08/16 15:55 Cholesterol 187 mg/dL (<200) 08/08/16 15:55 LDL Cholesterol Direct 104 mg/dL (75-193) 08/08/16 15:55 HDL Cholesterol 76 mg/dL (23-92) 08/08/16 15:55 TSH 0.90 uIU/ml (0.34-5.60) 08/08/16 15:55 Urine Source CLEAN C 08/08/16 17:00 Urine Color YELLOW 08/08/16 17:00 Urine Clarity CLEAR (CLEAR) 08/08/16 17:00 Urine pH 6.0 08/08/16 17:00 Ur Specific [place] 1.030 (1.005-1.030) 08/08/16 17:00 Urine Protein NEGATIVE mg/dL (NEGATIVE) 08/08/16 17:00 Urine Glucose (UA) NEGATIVE mg/dL (NEGATIVE) 08/08/16 17:00 Urine Ketones NEGATIVE mg/dL (NEGATIVE) 08/08/16 17:00 Urine Blood NEGATIVE (NEGATIVE) 08/08/16 17:00 Urine Nitrate NEGATIVE (NEGATIVE) 08/08/16 17:00 Urine Bilirubin NEGATIVE (NEGATIVE) 08/08/16 17:00 Urine Urobilinogen 0.2 E.U./dL (0.2 - 1.0) 08/08/16 17:00 Ur Leukocyte Esterase NEGATIVE (NEGATIVE) 08/08/16 17:00 Urine RBC 0-1 /hpf (0-5) 08/08/16 17:00 Urine WBC 0-2 /hpf (0-5) 08/08/16 17:00 Ur Epithelial Cells FEW /lpf (FEW) 08/08/16 17:00 Urine Bacteria OCCASIONAL /hpf (NONE SEEN) 08/08/16 17:00 Urine Mucus FEW /lpf (FEW) 08/08/16 17:00 RPR NONREACTIVE (NONREACTIVE) 08/08/16 15:55 - Physical Exam Vitals and I&O: Vital Signs Temp 97.9 F 08/25/16 06:30 Pulse 66 08/25/16 06:30 Resp 19 08/25/16 06:30 BP 121/64 08/24/16 19:50 Pulse Ox 98 08/25/16 06:30 Intake & Output 08/24/16 08/25/16 08/25/16 18:59 06:59 18:59 Intake Total 1200 480 Balance 1200 480 Intake: Oral 1200 480 Other: # Voids 4 2 # Bowel Movements 1 1 Active Medications: Current Medications Acetaminophen (Tylenol) 650 mg PO Q6H PRN PRN Reason: Pain (Mild) Stop: 10/22/16 10:16 Al Hydrox/Mg Hydrox/Simethicone (Maalox) 30 ml PO Q6H PRN PRN Reason: Dyspepsia Stop: 10/07/16 18:42 Last Admin: 08/24/16 22:59 Dose: 30 ml Artificial Tears (Lubrifresh Ophth Oint) 1 appl EACH EYE BID [facility] Stop: 10/08/16 16:59 Last Admin: 08/25/16 09:52 Dose: 1 appl Ascorbic Acid (Vitamin C) 500 mg PO DAILY [facility] Stop: 10/08/16 08:59 Last Admin: 08/25/16 09:54 Dose: 500 mg Benzocaine/Menthol (Cepacol) 1 agustin MM Q4HR PRN PRN Reason: Sore Throat Stop: 10/08/16 15:09 Last Admin: 08/14/16 16:39 Dose: 1 agustin Divalproex Sodium (Depakote Sprinkle) 250 mg PO Q8HR MAURO PRN Reason: Protocol Stop: 10/18/16 12:59 Last Admin: 08/25/16 05:23 Dose: 250 mg Docusate Sodium (Colace) 100 mg PO DAILY [facility] Stop: 10/08/16 08:59 Last Admin: 08/25/16 09:54 Dose: Not Given Ibuprofen (Motrin) 600 mg PO TID PRN PRN Reason: Pain (Mild) Stop: 10/07/16 18:38 Last Admin: 08/25/16 05:35 Dose: 600 mg Lorazepam (Ativan) 0.5 mg PO Q4HR PRN; Protocol PRN Reason: Anxiety Stop: 10/07/16 18:50 Last Admin: 08/24/16 17:35 Dose: 0.5 mg Magnesium Hydroxide (Milk Of Magnesia) 30 ml PO HS PRN PRN Reason: Constipation Stop: 10/07/16 18:42 Mupirocin (Bactroban Oint) 1 appl TP BID [facility] Stop: 10/09/16 16:59 Last Admin: 08/25/16 09:52 Dose: 1 appl Risperidone (Risperdal) 2 mg PO BID MAURO PRN Reason: Protocol Stop: 10/21/16 12:27 Last Admin: 08/25/16 09:52 Dose: 2 mg Zinc Sulfate (Zinc Sulfate) 220 mg PO DAILY [facility] Stop: 10/08/16 08:59 Last Admin: 08/25/16 09:54 Dose: 220 mg Zolpidem Tartrate (Ambien) 5 mg PO HS PRN PRN Reason: Insomnia Stop: 10/07/16 18:38 Last Admin: 08/12/16 23:15 Dose: 5 mg General: demented, bilateral temporal wasting, appears older HEENT: NC/AT, PERRLA, EOMI, anicteric sclerae Neck: Supple, No JVD, No LAD Lungs: CTAB Cardiovascular: RRR, Normal S1, Normal S2, without murmur Abdomen: non-tender, thin, non-distended, positive bowel sound Extremities: excoriation Neurological: no change, disorganized Internal Medicine Assmt/Plan - Assessment Assessment: Anemia, low albumin, mild protein-calorie malnutrition, sore throat, gait instability, thin built, dry eyes mrsa nare, possible bacteremia, possible contamination - Plan Plan: will start on bactroban cont on nasids artificial tears nutritional support yee cifuentes Nutritional Asmnt/Malnutr-PDOC - Dietary Evaluation Malnutrition Findings (Please click <Entered> for more info): Nutritional Asmnt/Malnutrition Start: 08/12/16 12: 24 Text: Status: Complete Freq: Document 08/12/16 12:24 GSUN (Rec: 08/12/16 12:47 [id number]) Nutritional Asmnt/Malnutrition Patient General Information Nutritional Screening Moderate Risk Screening Diagnosis Paranoia, schizophrenia Pertinent Medical Hx/Surgical Hx Anemia, thin built, smoker, drinker, mild protein calorie malnutrition, schizophrenia Subjective Information 66 year old male from [facility]. Pt was talkative, questionable historian, difficult to understand, rambled on. Pt report UBW 128lb, CBW via bedscale 137.3lb. Pt appeared overall thin, moderate wasting to temporals, chest, clavicles. Pt stated he is always hungry. Pt with few teeth intact, complained of food being pureed. RD explained current diet order to be ground. Pt stated he tolerated hamburger and crackers at [facility] without difficulties. Diet order from [facility]: [facility] soft , finely chopped, KB. Avg PO intake 83% past 3 days, meeting nutritional needs. Current Diet Order/ Nutrition Support Mech soft ground, KB Pertinent Medications Vitamin C, Colace, MOM, Seroquel, Zinc Sulfate Pertinent Labs Reviewed. 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 Current %PO Good (75-100%) Estimated Nutritional Goals Calories/Kcals/Kg IBW 178lb/80.9kg Kcals Calculated 2022-2427kcal (25-30kcal/kg) Protein g/kg: IBW Protein Calculated 81g (1g/kg) Fluid: ml 2022-2427ml (1ml/kcal) Nutritional Problem 1. Problem Problem Underweight related to Etiology unknown etiology, energy imbalance aeb Signs/Symptoms: BMI 18.6, BMI 17.4 using pt report UBW, moderate fat/ muscle depletion, thin built and mild protein calorie malnutrition noted in H&P Intervention/Recommendation Comments 1. Continue with mech ground KB diet. Pt expressed disatisfaction with pureed meals. RD explained current ground diet order. Pt noted with few teeth intact. Diet order at [facility]: mech soft, finely chopped, KB . 2. Recommend Boost BID for additional kcal and prot, promote weight gain. Expected Outcomes/Goals Expected Outcomes/Goals 1. PO intake to meet 100% of estimated nutritional needs. 2. Weight trend towards IBW. Physician Parameters for PEM Serum Albumin (g/dl) 3.5 - 5.0 (Normal)
--- NOTE | 2016-08-26 01:36 | Progress Notes ---
DATE: 08/25/2016 Case was discussed with staff of the patient, reviewed records. The patient continues to be rambling, continues to be unpredictable, impulsive, needing redirection. Continues to have poor insight. Continues to look disheveled, internally preoccupied, though he is getting out more from his room. He is sleeping better, eating better. No side effects with the medication, no sedation, no nausea, no extrapyramidal symptoms. He is very intrusive and impulsive. I will be increasing his dose of Depakote to 500 mg twice a day and also I will be increasing Risperdal to 3 mg twice a day and so far no side effects, no sedation, no nausea, no extrapyramidal symptoms. We will continue to work with the patient in group therapy, milieu therapy, adjust the medication as needed. JOB# [id number]
[2016-08-26] MEDS: Multivitamin w/ Minerals Tab PO SCH (08:47)
[2016-08-26] MEDS: Artificial Tear Ophth Oint 3.5 Gm Tube EACH EYE SCH ×2 (08:47→17:51)
[2016-08-26] MEDS: risperiDONE 1 mg/mL 30 mL Bottle PO SCH ×2 (08:47→17:51)
--- NOTE | 2016-08-26 13:05 | Internal Medicine Prog Note ---
Internal Medicine Subjective - Subjective Patient seen and examined:: with staff, chart reviewed Patient is:: awake, verbal, interactive, ambulating, talking, denies any new complaints Per staff patient has:: no adverse event, no episodes of fall, eating well Internal Medicine Objective - Results Result Diagrams: 08/08/16 15:55 08/08/16 15:55 Recent Labs: Laboratory Last Values WBC 7.3 Th/cmm (4.8-10.8) 08/08/16 15:55 RBC 3.82 Mil/cmm (3.80-5.80) 08/08/16 15:55 Hgb 10.7 gm/dL (12.6-17.4) L 08/08/16 15:55 Hct 32.4 % (39.0-49.0) L 08/08/16 15:55 MCV 84.8 fl (80-99) 08/08/16 15:55 MCH 28.1 pg (27.0-31.0) 08/08/16 15:55 MCHC Differential 33.1 pg (28.0-36.0) 08/08/16 15:55 RDW 16.1 % (11.5-20.0) 08/08/16 15:55 Plt Count 305 Th/cmm (150-400) 08/08/16 15:55 MPV 7.6 fl 08/08/16 15:55 Neutrophils % 63.0 % (40.0-80.0) 08/08/16 15:55 Lymphocytes % 20.2 % (20.0-50.0) 08/08/16 15:55 Monocytes % 13.4 % (2.0-10.0) H 08/08/16 15:55 Eosinophils % 2.8 % (0.0-5.0) 08/08/16 15:55 Basophils % 0.6 % (0.0-2.0) 08/08/16 15:55 PT 10.5 SECONDS (9.5-11.5) 08/08/16 15:55 INR 1.01 (0.5-1.4) 08/08/16 15:55 PTT (Actin FS) 25.1 SECONDS (26.0-38.0) L 08/08/16 15:55 Sodium 136 mEq/L (136-145) 08/08/16 15:55 Potassium 4.1 mEq/L (3.5-5.1) 08/08/16 15:55 Chloride 107 mEq/L (98-107) 08/08/16 15:55 Carbon Dioxide 25.6 mEq/L (21.0-31.0) 08/08/16 15:55 Anion Gap 7.5 (7.0-16.0) 08/08/16 15:55 BUN 24 mg/dL (7-25) 08/08/16 15:55 Creatinine 0.6 mg/dL (0.7-1.3) L 08/08/16 15:55 Est GFR ( Amer) > 60.0 ml/min (>90) 08/08/16 15:55 Est GFR (Non-Af Amer) > 60.0 ml/min 08/08/16 15:55 BUN/Creatinine Ratio 40.0 08/08/16 15:55 Glucose 97 mg/dL (70-105) 08/08/16 15:55 Calcium 9.5 mg/dL (8.6-10.3) 08/08/16 15:55 Total Bilirubin 0.3 mg/dL (0.3-1.0) 08/08/16 15:55 AST 19 U/L (13-39) 08/08/16 15:55 ALT 18 U/L (7-52) 08/08/16 15:55 Alkaline Phosphatase 90 U/L (34-104) 08/08/16 15:55 Troponin I 0.05 ng/mL (0.01-0.05) 08/08/16 15:55 Total Protein 6.6 gm/dL (6.0-8.3) 08/08/16 15:55 Albumin 3.6 gm/dL (4.2-5.5) L 08/08/16 15:55 Globulin 3.0 gm/dL 08/08/16 15:55 Albumin/Globulin Ratio 1.2 (1.0-1.8) 08/08/16 15:55 Triglycerides 68 mg/dL (<150) 08/08/16 15:55 Cholesterol 187 mg/dL (<200) 08/08/16 15:55 LDL Cholesterol Direct 104 mg/dL (75-193) 08/08/16 15:55 HDL Cholesterol 76 mg/dL (23-92) 08/08/16 15:55 TSH 0.90 uIU/ml (0.34-5.60) 08/08/16 15:55 Urine Source CLEAN C 08/08/16 17:00 Urine Color YELLOW 08/08/16 17:00 Urine Clarity CLEAR (CLEAR) 08/08/16 17:00 Urine pH 6.0 08/08/16 17:00 Ur Specific [place] 1.030 (1.005-1.030) 08/08/16 17:00 Urine Protein NEGATIVE mg/dL (NEGATIVE) 08/08/16 17:00 Urine Glucose (UA) NEGATIVE mg/dL (NEGATIVE) 08/08/16 17:00 Urine Ketones NEGATIVE mg/dL (NEGATIVE) 08/08/16 17:00 Urine Blood NEGATIVE (NEGATIVE) 08/08/16 17:00 Urine Nitrate NEGATIVE (NEGATIVE) 08/08/16 17:00 Urine Bilirubin NEGATIVE (NEGATIVE) 08/08/16 17:00 Urine Urobilinogen 0.2 E.U./dL (0.2 - 1.0) 08/08/16 17:00 Ur Leukocyte Esterase NEGATIVE (NEGATIVE) 08/08/16 17:00 Urine RBC 0-1 /hpf (0-5) 08/08/16 17:00 Urine WBC 0-2 /hpf (0-5) 08/08/16 17:00 Ur Epithelial Cells FEW /lpf (FEW) 08/08/16 17:00 Urine Bacteria OCCASIONAL /hpf (NONE SEEN) 08/08/16 17:00 Urine Mucus FEW /lpf (FEW) 08/08/16 17:00 RPR NONREACTIVE (NONREACTIVE) 08/08/16 15:55 - Physical Exam Vitals and I&O: Vital Signs Temp 98.4 F 08/26/16 06:48 Pulse 57 08/26/16 06:48 Resp 20 08/26/16 06:48 BP 139/74 08/26/16 06:48 Pulse Ox 99 08/26/16 06:48 Intake & Output 08/25/16 08/26/16 08/26/16 18:59 06:59 18:59 Intake Total 1800 240 Balance 1800 240 Intake: Oral 1800 240 Other: # Voids 4 1 # Bowel Movements 0 Active Medications: Current Medications Acetaminophen (Tylenol) 650 mg PO Q6H PRN PRN Reason: Pain (Mild) Stop: 08/23/17 10:16 Al Hydrox/Mg Hydrox/Simethicone (Maalox) 30 ml PO Q6H PRN PRN Reason: Dyspepsia Stop: 10/07/16 18:42 Last Admin: 08/24/16 22:59 Dose: 30 ml Artificial Tears (Lubrifresh Ophth Oint) 1 appl EACH EYE BID [facility] Stop: 10/08/16 16:59 Last Admin: 08/26/16 08:47 Dose: 1 appl Ascorbic Acid (Vitamin C) 500 mg PO DAILY [facility] Stop: 10/08/16 08:59 Last Admin: 08/26/16 08:47 Dose: 500 mg Benzocaine/Menthol (Cepacol) 1 agustin MM Q4HR PRN PRN Reason: Sore Throat Stop: 10/08/16 15:09 Last Admin: 08/14/16 16:39 Dose: 1 agustin Divalproex Sodium (Depakote Sprinkle) 500 mg PO Q12HR MAURO PRN Reason: Protocol Stop: 10/24/16 20:59 Last Admin: 08/26/16 08:46 Dose: 500 mg Docusate Sodium (Colace) 100 mg PO DAILY [facility] Stop: 10/08/16 08:59 Last Admin: 08/25/16 09:54 Dose: Not Given Ibuprofen (Motrin) 600 mg PO TID PRN PRN Reason: Pain (Mild) Stop: 10/07/16 18:38 Last Admin: 08/25/16 21:12 Dose: 600 mg Lorazepam (Ativan) 0.5 mg PO Q4HR PRN; Protocol PRN Reason: Anxiety Stop: 10/07/16 18:50 Last Admin: 08/25/16 13:07 Dose: 0.5 mg Magnesium Hydroxide (Milk Of Magnesia) 30 ml PO HS PRN PRN Reason: Constipation Stop: 10/07/16 18:42 Mupirocin (Bactroban Oint) 1 appl TP BID [facility] Stop: 10/09/16 16:59 Last Admin: 08/26/16 08:47 Dose: 1 appl Risperidone (Risperdal) 3 mg PO BID [facility]URO PRN Reason: Protocol Stop: 10/24/16 13:26 Last Admin: 08/26/16 08:47 Dose: 3 mg Zinc Sulfate (Zinc Sulfate) 220 mg PO DAILY [facility] Stop: 10/08/16 08:59 Last Admin: 08/26/16 08:47 Dose: 220 mg Zolpidem Tartrate (Ambien) 5 mg PO HS PRN PRN Reason: Insomnia Stop: 10/07/16 18:38 Last Admin: 08/12/16 23:15 Dose: 5 mg General: demented HEENT: NC/AT, PERRLA, EOMI, anicteric sclerae Neck: Supple, No LAD Lungs: CTAB Cardiovascular: RRR, Normal S1, Normal S2, without murmur Abdomen: soft, non-tender, globular, non-distended, positive bowel sound Extremities: excoriation Neurological: no change Internal Medicine Assmt/Plan - Assessment Assessment: Anemia, low albumin, mild protein-calorie malnutrition, sore throat, gait instability, thin built, dry eyes mrsa nare, possible bacteremia, possible contamination - Plan Plan: will start on bactroban cont on nasids artificial tears nutritional support yee cifuentes Nutritional Asmnt/Malnutr-PDOC - Dietary Evaluation Malnutrition Findings (Please click <Entered> for more info): Nutritional Asmnt/Malnutrition Start: 08/12/16 12: 24 Text: Status: Complete Freq: Document 08/12/16 12:24 GSUN (Rec: 08/12/16 12:47 [email or web address] [id number]) Nutritional Asmnt/Malnutrition Patient General Information Nutritional Screening Moderate Risk Screening Diagnosis Paranoia, schizophrenia Pertinent Medical Hx/Surgical Hx Anemia, thin built, smoker, drinker, mild protein calorie malnutrition, schizophrenia Subjective Information 66 year old male from [facility]. Pt was talkative, questionable historian, difficult to understand, rambled on. Pt report UBW 128lb, CBW via bedscale 137.3lb. Pt appeared overall thin, moderate wasting to temporals, chest, clavicles. Pt stated he is always hungry. Pt with few teeth intact, complained of food being pureed. RD explained current diet order to be ground. Pt stated he tolerated hamburger and crackers at [facility] without difficulties. Diet order from [facility]: mech soft , finely chopped, KB. Avg PO intake 83% past 3 days, meeting nutritional needs. Current Diet Order/ Nutrition Support [facility] soft ground, KB Pertinent Medications Vitamin C, Colace, MOM, Seroquel, Zinc Sulfate Pertinent Labs Reviewed. 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 Current %PO Good (75-100%) Estimated Nutritional Goals Calories/Kcals/Kg IBW 178lb/80.9kg Kcals Calculated 2022-2427kcal (25-30kcal/kg) Protein g/kg: IBW Protein Calculated 81g (1g/kg) Fluid: ml 2022-2427ml (1ml/kcal) Nutritional Problem 1. Problem Problem Underweight related to Etiology unknown etiology, energy imbalance aeb Signs/Symptoms: BMI 18.6, BMI 17.4 using pt report UBW, moderate fat/ muscle depletion, thin built and mild protein calorie malnutrition noted in H&P Intervention/Recommendation Comments 1. Continue with mech ground KB diet. Pt expressed disatisfaction with pureed meals. RD explained current ground diet order. Pt noted with few teeth intact. Diet order at [facility]: mech soft, finely chopped, KB . 2. Recommend Boost BID for additional kcal and prot, promote weight gain. Expected Outcomes/Goals Expected Outcomes/Goals 1. PO intake to meet 100% of estimated nutritional needs. 2. Weight trend towards IBW. Physician Parameters for PEM Serum Albumin (g/dl) 3.5 - 5.0 (Normal)
[2016-08-27] MEDS: risperiDONE 1 mg/mL 30 mL Bottle PO SCH ×2 (08:47→17:15)
[2016-08-27] MEDS: Multivitamin w/ Minerals Tab PO SCH (08:50)
[2016-08-27] MEDS: Artificial Tear Ophth Oint 3.5 Gm Tube EACH EYE SCH ×2 (08:52→17:15)
--- NOTE | 2016-08-27 14:22 | Internal Medicine Prog Note ---
Internal Medicine Subjective - Subjective Service Date: 08/27/16 Patient seen and examined:: with staff Patient is:: awake Per staff patient has:: no adverse event Internal Medicine Objective - Results Result Diagrams: 08/08/16 15:55 08/08/16 15:55 Recent Labs: Laboratory Last Values WBC 7.3 Th/cmm (4.8-10.8) 08/08/16 15:55 RBC 3.82 Mil/cmm (3.80-5.80) 08/08/16 15:55 Hgb 10.7 gm/dL (12.6-17.4) L 08/08/16 15:55 Hct 32.4 % (39.0-49.0) L 08/08/16 15:55 MCV 84.8 fl (80-99) 08/08/16 15:55 MCH 28.1 pg (27.0-31.0) 08/08/16 15:55 MCHC Differential 33.1 pg (28.0-36.0) 08/08/16 15:55 RDW 16.1 % (11.5-20.0) 08/08/16 15:55 Plt Count 305 Th/cmm (150-400) 08/08/16 15:55 MPV 7.6 fl 08/08/16 15:55 Neutrophils % 63.0 % (40.0-80.0) 08/08/16 15:55 Lymphocytes % 20.2 % (20.0-50.0) 08/08/16 15:55 Monocytes % 13.4 % (2.0-10.0) H 08/08/16 15:55 Eosinophils % 2.8 % (0.0-5.0) 08/08/16 15:55 Basophils % 0.6 % (0.0-2.0) 08/08/16 15:55 PT 10.5 SECONDS (9.5-11.5) 08/08/16 15:55 INR 1.01 (0.5-1.4) 08/08/16 15:55 PTT (Actin FS) 25.1 SECONDS (26.0-38.0) L 08/08/16 15:55 Sodium 136 mEq/L (136-145) 08/08/16 15:55 Potassium 4.1 mEq/L (3.5-5.1) 08/08/16 15:55 Chloride 107 mEq/L (98-107) 08/08/16 15:55 Carbon Dioxide 25.6 mEq/L (21.0-31.0) 08/08/16 15:55 Anion Gap 7.5 (7.0-16.0) 08/08/16 15:55 BUN 24 mg/dL (7-25) 08/08/16 15:55 Creatinine 0.6 mg/dL (0.7-1.3) L 08/08/16 15:55 Est GFR ( Amer) > 60.0 ml/min (>90) 08/08/16 15:55 Est GFR (Non-Af Amer) > 60.0 ml/min 08/08/16 15:55 BUN/Creatinine Ratio 40.0 08/08/16 15:55 Glucose 97 mg/dL (70-105) 08/08/16 15:55 Calcium 9.5 mg/dL (8.6-10.3) 08/08/16 15:55 Total Bilirubin 0.3 mg/dL (0.3-1.0) 08/08/16 15:55 AST 19 U/L (13-39) 08/08/16 15:55 ALT 18 U/L (7-52) 08/08/16 15:55 Alkaline Phosphatase 90 U/L (34-104) 08/08/16 15:55 Troponin I 0.05 ng/mL (0.01-0.05) 08/08/16 15:55 Total Protein 6.6 gm/dL (6.0-8.3) 08/08/16 15:55 Albumin 3.6 gm/dL (4.2-5.5) L 08/08/16 15:55 Globulin 3.0 gm/dL 08/08/16 15:55 Albumin/Globulin Ratio 1.2 (1.0-1.8) 08/08/16 15:55 Triglycerides 68 mg/dL (<150) 08/08/16 15:55 Cholesterol 187 mg/dL (<200) 08/08/16 15:55 LDL Cholesterol Direct 104 mg/dL (75-193) 08/08/16 15:55 HDL Cholesterol 76 mg/dL (23-92) 08/08/16 15:55 TSH 0.90 uIU/ml (0.34-5.60) 08/08/16 15:55 Urine Source CLEAN C 08/08/16 17:00 Urine Color YELLOW 08/08/16 17:00 Urine Clarity CLEAR (CLEAR) 08/08/16 17:00 Urine pH 6.0 08/08/16 17:00 Ur Specific [place] 1.030 (1.005-1.030) 08/08/16 17:00 Urine Protein NEGATIVE mg/dL (NEGATIVE) 08/08/16 17:00 Urine Glucose (UA) NEGATIVE mg/dL (NEGATIVE) 08/08/16 17:00 Urine Ketones NEGATIVE mg/dL (NEGATIVE) 08/08/16 17:00 Urine Blood NEGATIVE (NEGATIVE) 08/08/16 17:00 Urine Nitrate NEGATIVE (NEGATIVE) 08/08/16 17:00 Urine Bilirubin NEGATIVE (NEGATIVE) 08/08/16 17:00 Urine Urobilinogen 0.2 E.U./dL (0.2 - 1.0) 08/08/16 17:00 Ur Leukocyte Esterase NEGATIVE (NEGATIVE) 08/08/16 17:00 Urine RBC 0-1 /hpf (0-5) 08/08/16 17:00 Urine WBC 0-2 /hpf (0-5) 08/08/16 17:00 Ur Epithelial Cells FEW /lpf (FEW) 08/08/16 17:00 Urine Bacteria OCCASIONAL /hpf (NONE SEEN) 08/08/16 17:00 Urine Mucus FEW /lpf (FEW) 08/08/16 17:00 RPR NONREACTIVE (NONREACTIVE) 08/08/16 15:55 - Physical Exam Vitals and I&O: Vital Signs Temp 97.8 F 08/27/16 05:54 Pulse 63 08/27/16 05:54 Resp 18 08/27/16 05:54 BP 128/68 08/27/16 05:54 Pulse Ox 98 08/27/16 05:54 Intake & Output 08/26/16 08/27/16 08/27/16 18:59 06:59 18:59 Intake Total 2600 120 Balance 2600 120 Intake: Oral 2600 120 Other: # Voids 4 1 # Bowel Movements 0 0 Active Medications: Current Medications Acetaminophen (Tylenol) 650 mg PO Q6H PRN PRN Reason: Pain (Mild) Stop: 10/22/16 10:16 Al Hydrox/Mg Hydrox/Simethicone (Maalox) 30 ml PO Q6H PRN PRN Reason: Dyspepsia Stop: 10/07/16 18:42 Last Admin: 08/24/16 22:59 Dose: 30 ml Artificial Tears (Lubrifresh Ophth Oint) 1 appl EACH EYE BID [facility] Stop: 10/08/16 16:59 Last Admin: 08/27/16 08:52 Dose: 1 appl Ascorbic Acid (Vitamin C) 500 mg PO DAILY [facility] Stop: 10/08/16 08:59 Last Admin: 08/27/16 08:50 Dose: 500 mg Benzocaine/Menthol (Cepacol) 1 agustin MM Q4HR PRN PRN Reason: Sore Throat Stop: 10/08/16 15:09 Last Admin: 08/14/16 16:39 Dose: 1 agustin Divalproex Sodium (Depakote Sprinkle) 500 mg PO Q12HR MAURO PRN Reason: Protocol Stop: 10/24/16 20:59 Last Admin: 08/27/16 08:49 Dose: 500 mg Docusate Sodium (Colace) 100 mg PO DAILY [facility] Stop: 10/08/16 08:59 Last Admin: 08/27/16 11:02 Dose: Not Given Ibuprofen (Motrin) 600 mg PO TID PRN PRN Reason: Pain (Mild) Stop: 10/07/16 18:38 Last Admin: 08/27/16 08:57 Dose: 600 mg Lorazepam (Ativan) 0.5 mg PO Q4HR PRN; Protocol PRN Reason: Anxiety Stop: 10/07/16 18:50 Last Admin: 08/27/16 08:50 Dose: 0.5 mg Magnesium Hydroxide (Milk Of Magnesia) 30 ml PO HS PRN PRN Reason: Constipation Stop: 10/07/16 18:42 Risperidone (Risperdal) 3 mg PO BID MAURO PRN Reason: Protocol Stop: 10/24/16 13:26 Last Admin: 08/27/16 08:47 Dose: 3 mg Zinc Sulfate (Zinc Sulfate) 220 mg PO DAILY [facility] Stop: 10/08/16 08:59 Last Admin: 08/27/16 08:50 Dose: 220 mg Zolpidem Tartrate (Ambien) 5 mg PO HS PRN PRN Reason: Insomnia Stop: 10/07/16 18:38 Last Admin: 08/12/16 23:15 Dose: 5 mg General: alert HEENT: NC/AT, PERRLA Neck: Supple Lungs: CTAB Cardiovascular: RRR, Normal S1, Normal S2 Abdomen: soft, non-tender, non-distended Neurological: no change Internal Medicine Assmt/Plan - Assessment Assessment: Anemia, low albumin mild protein-calorie malnutrition, sore throat gait instability thin built dry eyes mrsa nare possible bacteremia possible contamination - Plan Plan: artificial tears monitor for safety cpm Nutritional Asmnt/Malnutr-PDOC - Dietary Evaluation Malnutrition Findings (Please click <Entered> for more info): Nutritional Asmnt/Malnutrition Start: 08/12/16 12: 24 Text: Status: Complete Freq: Document 08/12/16 12:24 GSUN (Rec: 08/12/16 12:47 [email or web address] [email or web address]) Nutritional Asmnt/Malnutrition Patient General Information Nutritional Screening Moderate Risk Screening Diagnosis Paranoia, schizophrenia Pertinent Medical Hx/Surgical Hx Anemia, thin built, smoker, drinker, mild protein calorie malnutrition, schizophrenia Subjective Information 66 year old male from SNF. Pt was talkative, questionable historian, difficult to understand, rambled on. Pt report UBW 128lb, CBW via bedscale 137.3lb. Pt appeared overall thin, moderate wasting to temporals, chest, clavicles. Pt stated he is always hungry. Pt with few teeth intact, complained of food being pureed. RD explained current diet order to be ground. Pt stated he tolerated hamburger and crackers at SNF without difficulties. Diet order from [facility]: mech soft , finely chopped, KB. Avg PO intake 83% past 3 days, meeting nutritional needs. Current Diet Order/ Nutrition Support Mech soft ground, KB Pertinent Medications Vitamin C, Colace, MOM, Seroquel, Zinc Sulfate Pertinent Labs Reviewed. 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 Current %PO Good (75-100%) Estimated Nutritional Goals Calories/Kcals/Kg IBW 178lb/80.9kg Kcals Calculated 2022-2427kcal (25-30kcal/kg) Protein g/kg: IBW Protein Calculated 81g (1g/kg) Fluid: ml 2022-2427ml (1ml/kcal) Nutritional Problem 1. Problem Problem Underweight related to Etiology unknown etiology, energy imbalance aeb Signs/Symptoms: BMI 18.6, BMI 17.4 using pt report UBW, moderate fat/ muscle depletion, thin built and mild protein calorie malnutrition noted in H&P Intervention/Recommendation Comments 1. Continue with [facility] ground KB diet. Pt expressed disatisfaction with pureed meals. RD explained current ground diet order. Pt noted with few teeth intact. Diet order at [facility]: [facility] soft, finely chopped, KB . 2. Recommend Boost BID for additional kcal and prot, promote weight gain. Expected Outcomes/Goals Expected Outcomes/Goals 1. PO intake to meet 100% of estimated nutritional needs. 2. Weight trend towards IBW. Physician Parameters for PEM Serum Albumin (g/dl) 3.5 - 5.0 (Normal)
[2016-08-28] MEDS: Multivitamin w/ Minerals Tab PO SCH (09:15)
[2016-08-28] MEDS: Artificial Tear Ophth Oint 3.5 Gm Tube EACH EYE SCH ×2 (09:22→17:25)
[2016-08-28] MEDS: risperiDONE 1 mg/mL 30 mL Bottle PO SCH ×2 (09:22→17:25)
--- NOTE | 2016-08-28 12:17 | Internal Medicine Prog Note ---
Internal Medicine Subjective - Subjective Service Date: 08/28/16 Patient seen and examined:: with staff Patient is:: awake Per staff patient has:: no adverse event Internal Medicine Objective - Results Result Diagrams: 08/08/16 15:55 08/08/16 15:55 Recent Labs: Laboratory Last Values WBC 7.3 Th/cmm (4.8-10.8) 08/08/16 15:55 RBC 3.82 Mil/cmm (3.80-5.80) 08/08/16 15:55 Hgb 10.7 gm/dL (12.6-17.4) L 08/08/16 15:55 Hct 32.4 % (39.0-49.0) L 08/08/16 15:55 MCV 84.8 fl (80-99) 08/08/16 15:55 MCH 28.1 pg (27.0-31.0) 08/08/16 15:55 MCHC Differential 33.1 pg (28.0-36.0) 08/08/16 15:55 RDW 16.1 % (11.5-20.0) 08/08/16 15:55 Plt Count 305 Th/cmm (150-400) 08/08/16 15:55 MPV 7.6 fl 08/08/16 15:55 Neutrophils % 63.0 % (40.0-80.0) 08/08/16 15:55 Lymphocytes % 20.2 % (20.0-50.0) 08/08/16 15:55 Monocytes % 13.4 % (2.0-10.0) H 08/08/16 15:55 Eosinophils % 2.8 % (0.0-5.0) 08/08/16 15:55 Basophils % 0.6 % (0.0-2.0) 08/08/16 15:55 PT 10.5 SECONDS (9.5-11.5) 08/08/16 15:55 INR 1.01 (0.5-1.4) 08/08/16 15:55 PTT (Actin FS) 25.1 SECONDS (26.0-38.0) L 08/08/16 15:55 Sodium 136 mEq/L (136-145) 08/08/16 15:55 Potassium 4.1 mEq/L (3.5-5.1) 08/08/16 15:55 Chloride 107 mEq/L (98-107) 08/08/16 15:55 Carbon Dioxide 25.6 mEq/L (21.0-31.0) 08/08/16 15:55 Anion Gap 7.5 (7.0-16.0) 08/08/16 15:55 BUN 24 mg/dL (7-25) 08/08/16 15:55 Creatinine 0.6 mg/dL (0.7-1.3) L 08/08/16 15:55 Est GFR ( Amer) > 60.0 ml/min (>90) 08/08/16 15:55 Est GFR (Non-Af Amer) > 60.0 ml/min 08/08/16 15:55 BUN/Creatinine Ratio 40.0 08/08/16 15:55 Glucose 97 mg/dL (70-105) 08/08/16 15:55 Calcium 9.5 mg/dL (8.6-10.3) 08/08/16 15:55 Total Bilirubin 0.3 mg/dL (0.3-1.0) 08/08/16 15:55 AST 19 U/L (13-39) 08/08/16 15:55 ALT 18 U/L (7-52) 08/08/16 15:55 Alkaline Phosphatase 90 U/L (34-104) 08/08/16 15:55 Troponin I 0.05 ng/mL (0.01-0.05) 08/08/16 15:55 Total Protein 6.6 gm/dL (6.0-8.3) 08/08/16 15:55 Albumin 3.6 gm/dL (4.2-5.5) L 08/08/16 15:55 Globulin 3.0 gm/dL 08/08/16 15:55 Albumin/Globulin Ratio 1.2 (1.0-1.8) 08/08/16 15:55 Triglycerides 68 mg/dL (<150) 08/08/16 15:55 Cholesterol 187 mg/dL (<200) 08/08/16 15:55 LDL Cholesterol Direct 104 mg/dL (75-193) 08/08/16 15:55 HDL Cholesterol 76 mg/dL (23-92) 08/08/16 15:55 TSH 0.90 uIU/ml (0.34-5.60) 08/08/16 15:55 Urine Source CLEAN C 08/08/16 17:00 Urine Color YELLOW 08/08/16 17:00 Urine Clarity CLEAR (CLEAR) 08/08/16 17:00 Urine pH 6.0 08/08/16 17:00 Ur Specific [place] 1.030 (1.005-1.030) 08/08/16 17:00 Urine Protein NEGATIVE mg/dL (NEGATIVE) 08/08/16 17:00 Urine Glucose (UA) NEGATIVE mg/dL (NEGATIVE) 08/08/16 17:00 Urine Ketones NEGATIVE mg/dL (NEGATIVE) 08/08/16 17:00 Urine Blood NEGATIVE (NEGATIVE) 08/08/16 17:00 Urine Nitrate NEGATIVE (NEGATIVE) 08/08/16 17:00 Urine Bilirubin NEGATIVE (NEGATIVE) 08/08/16 17:00 Urine Urobilinogen 0.2 E.U./dL (0.2 - 1.0) 08/08/16 17:00 Ur Leukocyte Esterase NEGATIVE (NEGATIVE) 08/08/16 17:00 Urine RBC 0-1 /hpf (0-5) 08/08/16 17:00 Urine WBC 0-2 /hpf (0-5) 08/08/16 17:00 Ur Epithelial Cells FEW /lpf (FEW) 08/08/16 17:00 Urine Bacteria OCCASIONAL /hpf (NONE SEEN) 08/08/16 17:00 Urine Mucus FEW /lpf (FEW) 08/08/16 17:00 RPR NONREACTIVE (NONREACTIVE) 08/08/16 15:55 - Physical Exam Vitals and I&O: Vital Signs Temp 97.6 F 08/27/16 14:00 Pulse 78 08/27/16 14:00 Resp 20 08/27/16 14:00 BP 122/72 08/27/16 14:00 Pulse Ox 97 08/27/16 14:00 Intake & Output 08/27/16 08/28/16 08/28/16 18:59 06:59 18:59 Intake Total 1200 Balance 1200 Intake: Oral 1200 Other: # Voids 3 # Bowel Movements 1 Active Medications: Current Medications Acetaminophen (Tylenol) 650 mg PO Q6H PRN PRN Reason: Pain (Mild) Stop: 10/22/16 10:16 Al Hydrox/Mg Hydrox/Simethicone (Maalox) 30 ml PO Q6H PRN PRN Reason: Dyspepsia Stop: 10/07/16 18:42 Last Admin: 08/24/16 22:59 Dose: 30 ml Artificial Tears (Lubrifresh Ophth Oint) 1 appl EACH EYE BID [facility] Stop: 10/08/16 16:59 Last Admin: 08/28/16 09:22 Dose: 1 appl Ascorbic Acid (Vitamin C) 500 mg PO DAILY [facility] Stop: 10/08/16 08:59 Last Admin: 08/28/16 09:14 Dose: 500 mg Benzocaine/Menthol (Cepacol) 1 agustin MM Q4HR PRN PRN Reason: Sore Throat Stop: 10/08/16 15:09 Last Admin: 08/14/16 16:39 Dose: 1 agustin Divalproex Sodium (Depakote Sprinkle) 500 mg PO Q12HR MAURO PRN Reason: Protocol Stop: 10/24/16 20:59 Last Admin: 08/28/16 09:14 Dose: 500 mg Docusate Sodium (Colace) 100 mg PO DAILY [facility] Stop: 10/08/16 08:59 Last Admin: 08/28/16 09:14 Dose: Not Given Ibuprofen (Motrin) 600 mg PO TID PRN PRN Reason: Pain (Mild) Stop: 10/07/16 18:38 Last Admin: 08/27/16 08:57 Dose: 600 mg Lorazepam (Ativan) 0.5 mg PO Q4HR PRN; Protocol PRN Reason: Anxiety Stop: 10/07/16 18:50 Last Admin: 08/27/16 08:50 Dose: 0.5 mg Magnesium Hydroxide (Milk Of Magnesia) 30 ml PO HS PRN PRN Reason: Constipation Stop: 10/07/16 18:42 Risperidone (Risperdal) 3 mg PO BID MAURO PRN Reason: Protocol Stop: 10/24/16 13:26 Last Admin: 08/28/16 09:22 Dose: 3 mg Zinc Sulfate (Zinc Sulfate) 220 mg PO DAILY [facility] Stop: 10/08/16 08:59 Last Admin: 08/28/16 09:14 Dose: 220 mg Zolpidem Tartrate (Ambien) 5 mg PO HS PRN PRN Reason: Insomnia Stop: 10/07/16 18:38 Last Admin: 08/12/16 23:15 Dose: 5 mg General: alert HEENT: NC/AT, PERRLA Neck: Supple Lungs: CTAB Cardiovascular: RRR, Normal S1, Normal S2 Abdomen: soft, non-tender, non-distended Internal Medicine Assmt/Plan - Assessment Assessment: Anemia, low albumin mild protein-calorie malnutrition, sore throat gait instability thin built dry eyes mrsa nare possible bacteremia possible contamination - Plan Plan: artificial tears monitor for safety cpm Nutritional Asmnt/Malnutr-PDOC - Dietary Evaluation Malnutrition Findings (Please click <Entered> for more info): Nutritional Asmnt/Malnutrition Start: 08/12/16 12: 24 Text: Status: Complete Freq: Document 08/12/16 12:24 GSUN (Rec: 08/12/16 12:47 [email or web address] [id number]) Nutritional Asmnt/Malnutrition Patient General Information Nutritional Screening Moderate Risk Screening Diagnosis Paranoia, schizophrenia Pertinent Medical Hx/Surgical Hx Anemia, thin built, smoker, drinker, mild protein calorie malnutrition, schizophrenia Subjective Information 66 year old male from SNF. Pt was talkative, questionable historian, difficult to understand, rambled on. Pt report UBW 128lb, CBW via bedscale 137.3lb. Pt appeared overall thin, moderate wasting to temporals, chest, clavicles. Pt stated he is always hungry. Pt with few teeth intact, complained of food being pureed. RD explained current diet order to be ground. Pt stated he tolerated hamburger and crackers at [facility] without difficulties. Diet order from [facility]: mech soft , finely chopped, KB. Avg PO intake 83% past 3 days, meeting nutritional needs. Current Diet Order/ Nutrition Support Mech soft ground, KB Pertinent Medications Vitamin C, Colace, MOM, Seroquel, Zinc Sulfate Pertinent Labs Reviewed. 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 Current %PO Good (75-100%) Estimated Nutritional Goals Calories/Kcals/Kg IBW 178lb/80.9kg Kcals Calculated 2022-2427kcal (25-30kcal/kg) Protein g/kg: IBW Protein Calculated 81g (1g/kg) Fluid: ml 2022-2427ml (1ml/kcal) Nutritional Problem 1. Problem Problem Underweight related to Etiology unknown etiology, energy imbalance aeb Signs/Symptoms: BMI 18.6, BMI 17.4 using pt report UBW, moderate fat/ muscle depletion, thin built and mild protein calorie malnutrition noted in H&P Intervention/Recommendation Comments 1. Continue with [facility] ground KB diet. Pt expressed disatisfaction with pureed meals. RD explained current ground diet order. Pt noted with few teeth intact. Diet order at [facility]: [facility] soft, finely chopped, KB . 2. Recommend Boost BID for additional kcal and prot, promote weight gain. Expected Outcomes/Goals Expected Outcomes/Goals 1. PO intake to meet 100% of estimated nutritional needs. 2. Weight trend towards IBW. Physician Parameters for PEM Serum Albumin (g/dl) 3.5 - 5.0 (Normal)
[2016-08-29] MEDS: risperiDONE 1 mg/mL 30 mL Bottle PO SCH ×2 (09:32→16:30)
[2016-08-29] MEDS: Artificial Tear Ophth Oint 3.5 Gm Tube EACH EYE SCH ×2 (09:41→16:44)
[2016-08-29] MEDS: Multivitamin w/ Minerals Tab PO SCH (09:43)
--- NOTE | 2016-08-29 12:14 | Internal Medicine Prog Note ---
Internal Medicine Subjective - Subjective Service Date: 08/29/16 Patient seen and examined:: with staff Patient is:: awake Per staff patient has:: no adverse event Internal Medicine Objective - Results Result Diagrams: 08/08/16 15:55 08/08/16 15:55 Recent Labs: Laboratory Last Values WBC 7.3 Th/cmm (4.8-10.8) 08/08/16 15:55 RBC 3.82 Mil/cmm (3.80-5.80) 08/08/16 15:55 Hgb 10.7 gm/dL (12.6-17.4) L 08/08/16 15:55 Hct 32.4 % (39.0-49.0) L 08/08/16 15:55 MCV 84.8 fl (80-99) 08/08/16 15:55 MCH 28.1 pg (27.0-31.0) 08/08/16 15:55 MCHC Differential 33.1 pg (28.0-36.0) 08/08/16 15:55 RDW 16.1 % (11.5-20.0) 08/08/16 15:55 Plt Count 305 Th/cmm (150-400) 08/08/16 15:55 MPV 7.6 fl 08/08/16 15:55 Neutrophils % 63.0 % (40.0-80.0) 08/08/16 15:55 Lymphocytes % 20.2 % (20.0-50.0) 08/08/16 15:55 Monocytes % 13.4 % (2.0-10.0) H 08/08/16 15:55 Eosinophils % 2.8 % (0.0-5.0) 08/08/16 15:55 Basophils % 0.6 % (0.0-2.0) 08/08/16 15:55 PT 10.5 SECONDS (9.5-11.5) 08/08/16 15:55 INR 1.01 (0.5-1.4) 08/08/16 15:55 PTT (Actin FS) 25.1 SECONDS (26.0-38.0) L 08/08/16 15:55 Sodium 136 mEq/L (136-145) 08/08/16 15:55 Potassium 4.1 mEq/L (3.5-5.1) 08/08/16 15:55 Chloride 107 mEq/L (98-107) 08/08/16 15:55 Carbon Dioxide 25.6 mEq/L (21.0-31.0) 08/08/16 15:55 Anion Gap 7.5 (7.0-16.0) 08/08/16 15:55 BUN 24 mg/dL (7-25) 08/08/16 15:55 Creatinine 0.6 mg/dL (0.7-1.3) L 08/08/16 15:55 Est GFR ( Amer) > 60.0 ml/min (>90) 08/08/16 15:55 Est GFR (Non-Af Amer) > 60.0 ml/min 08/08/16 15:55 BUN/Creatinine Ratio 40.0 08/08/16 15:55 Glucose 97 mg/dL (70-105) 08/08/16 15:55 Calcium 9.5 mg/dL (8.6-10.3) 08/08/16 15:55 Total Bilirubin 0.3 mg/dL (0.3-1.0) 08/08/16 15:55 AST 19 U/L (13-39) 08/08/16 15:55 ALT 18 U/L (7-52) 08/08/16 15:55 Alkaline Phosphatase 90 U/L (34-104) 08/08/16 15:55 Troponin I 0.05 ng/mL (0.01-0.05) 08/08/16 15:55 Total Protein 6.6 gm/dL (6.0-8.3) 08/08/16 15:55 Albumin 3.6 gm/dL (4.2-5.5) L 08/08/16 15:55 Globulin 3.0 gm/dL 08/08/16 15:55 Albumin/Globulin Ratio 1.2 (1.0-1.8) 08/08/16 15:55 Triglycerides 68 mg/dL (<150) 08/08/16 15:55 Cholesterol 187 mg/dL (<200) 08/08/16 15:55 LDL Cholesterol Direct 104 mg/dL (75-193) 08/08/16 15:55 HDL Cholesterol 76 mg/dL (23-92) 08/08/16 15:55 TSH 0.90 uIU/ml (0.34-5.60) 08/08/16 15:55 Urine Source CLEAN C 08/08/16 17:00 Urine Color YELLOW 08/08/16 17:00 Urine Clarity CLEAR (CLEAR) 08/08/16 17:00 Urine pH 6.0 08/08/16 17:00 Ur Specific [place] 1.030 (1.005-1.030) 08/08/16 17:00 Urine Protein NEGATIVE mg/dL (NEGATIVE) 08/08/16 17:00 Urine Glucose (UA) NEGATIVE mg/dL (NEGATIVE) 08/08/16 17:00 Urine Ketones NEGATIVE mg/dL (NEGATIVE) 08/08/16 17:00 Urine Blood NEGATIVE (NEGATIVE) 08/08/16 17:00 Urine Nitrate NEGATIVE (NEGATIVE) 08/08/16 17:00 Urine Bilirubin NEGATIVE (NEGATIVE) 08/08/16 17:00 Urine Urobilinogen 0.2 E.U./dL (0.2 - 1.0) 08/08/16 17:00 Ur Leukocyte Esterase NEGATIVE (NEGATIVE) 08/08/16 17:00 Urine RBC 0-1 /hpf (0-5) 08/08/16 17:00 Urine WBC 0-2 /hpf (0-5) 08/08/16 17:00 Ur Epithelial Cells FEW /lpf (FEW) 08/08/16 17:00 Urine Bacteria OCCASIONAL /hpf (NONE SEEN) 08/08/16 17:00 Urine Mucus FEW /lpf (FEW) 08/08/16 17:00 Valproic Acid 72.1 ug/mL (50.0-100.0) 08/28/16 12:05 RPR NONREACTIVE (NONREACTIVE) 08/08/16 15:55 - Physical Exam Vitals and I&O: Vital Signs Temp 97.6 F 08/28/16 21:49 Pulse 66 08/28/16 21:49 Resp 20 08/28/16 21:49 BP 138/69 08/28/16 21:49 Pulse Ox 18 08/28/16 21:49 Intake & Output 08/28/16 08/29/16 08/29/16 18:59 06:59 18:59 Other: # Voids 1 Active Medications: Current Medications Acetaminophen (Tylenol) 650 mg PO Q6H PRN PRN Reason: Pain (Mild) Stop: 10/22/16 10:16 Al Hydrox/Mg Hydrox/Simethicone (Maalox) 30 ml PO Q6H PRN PRN Reason: Dyspepsia Stop: 10/07/16 18:42 Last Admin: 08/24/16 22:59 Dose: 30 ml Artificial Tears (Lubrifresh Ophth Oint) 1 appl EACH EYE BID MAURO Stop: 10/08/16 16:59 Last Admin: 08/29/16 09:41 Dose: 1 appl Ascorbic Acid (Vitamin C) 500 mg PO DAILY [facility] Stop: 10/08/16 08:59 Last Admin: 08/29/16 09:43 Dose: Not Given Benzocaine/Menthol (Cepacol) 1 agustin MM Q4HR PRN PRN Reason: Sore Throat Stop: 10/08/16 15:09 Last Admin: 08/14/16 16:39 Dose: 1 agustin Divalproex Sodium (Depakote Sprinkle) 500 mg PO Q12HR MAURO PRN Reason: Protocol Stop: 10/24/16 20:59 Last Admin: 08/29/16 09:38 Dose: 500 mg Docusate Sodium (Colace) 100 mg PO DAILY [facility] Stop: 10/08/16 08:59 Last Admin: 08/29/16 09:43 Dose: Not Given Ibuprofen (Motrin) 600 mg PO TID PRN PRN Reason: Pain (Mild) Stop: 10/07/16 18:38 Last Admin: 08/27/16 08:57 Dose: 600 mg Lorazepam (Ativan) 0.5 mg PO Q4HR PRN; Protocol PRN Reason: Anxiety Stop: 10/07/16 18:50 Last Admin: 08/27/16 08:50 Dose: 0.5 mg Magnesium Hydroxide (Milk Of Magnesia) 30 ml PO HS PRN PRN Reason: Constipation Stop: 10/07/16 18:42 Risperidone (Risperdal) 3 mg PO BID MAURO PRN Reason: Protocol Stop: 10/24/16 13:26 Last Admin: 08/29/16 09:32 Dose: 3 mg Zinc Sulfate (Zinc Sulfate) 220 mg PO DAILY [facility]URO Stop: 10/08/16 08:59 Last Admin: 08/29/16 09:40 Dose: 220 mg Zolpidem Tartrate (Ambien) 5 mg PO HS PRN PRN Reason: Insomnia Stop: 10/07/16 18:38 Last Admin: 08/12/16 23:15 Dose: 5 mg General: alert HEENT: NC/AT, PERRLA Neck: Supple Lungs: CTAB Cardiovascular: RRR, Normal S1, Normal S2, without murmur Abdomen: soft, non-tender, non-distended Extremities: clear Neurological: no change Internal Medicine Assmt/Plan - Assessment Assessment: Anemia, low albumin mild protein-calorie malnutrition, sore throat gait instability thin built dry eyes mrsa nare possible bacteremia possible contamination - Plan Plan: artificial tears monitor for safety cpm Nutritional Asmnt/Malnutr-PDOC - Dietary Evaluation Malnutrition Findings (Please click <Entered> for more info): Nutritional Asmnt/Malnutrition Start: 08/12/16 12: 24 Text: Status: Complete Freq: Document 08/12/16 12:24 GSUN (Rec: 08/12/16 12:47 [email or web address] [email or web address]) Nutritional Asmnt/Malnutrition Patient General Information Nutritional Screening Moderate Risk Screening Diagnosis Paranoia, schizophrenia Pertinent Medical Hx/Surgical Hx Anemia, thin built, smoker, drinker, mild protein calorie malnutrition, schizophrenia Subjective Information 66 year old male from SNF. Pt was talkative, questionable historian, difficult to understand, rambled on. Pt report UBW 128lb, CBW via bedscale 137.3lb. Pt appeared overall thin, moderate wasting to temporals, chest, clavicles. Pt stated he is always hungry. Pt with few teeth intact, complained of food being pureed. RD explained current diet order to be ground. Pt stated he tolerated hamburger and crackers at SNF without difficulties. Diet order from [facility]: mech soft , finely chopped, KB. Avg PO intake 83% past 3 days, meeting nutritional needs. Current Diet Order/ Nutrition Support Mech soft ground, KB Pertinent Medications Vitamin C, Colace, MOM, Seroquel, Zinc Sulfate Pertinent Labs Reviewed. 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 Current %PO Good (75-100%) Estimated Nutritional Goals Calories/Kcals/Kg IBW 178lb/80.9kg Kcals Calculated 2022-2427kcal (25-30kcal/kg) Protein g/kg: IBW Protein Calculated 81g (1g/kg) Fluid: ml 2022-2427ml (1ml/kcal) Nutritional Problem 1. Problem Problem Underweight related to Etiology unknown etiology, energy imbalance aeb Signs/Symptoms: BMI 18.6, BMI 17.4 using pt report UBW, moderate fat/ muscle depletion, thin built and mild protein calorie malnutrition noted in H&P Intervention/Recommendation Comments 1. Continue with mech ground KB diet. Pt expressed disatisfaction with pureed meals. RD explained current ground diet order. Pt noted with few teeth intact. Diet order at [facility]: mech soft, finely chopped, KB . 2. Recommend Boost BID for additional kcal and prot, promote weight gain. Expected Outcomes/Goals Expected Outcomes/Goals 1. PO intake to meet 100% of estimated nutritional needs. 2. Weight trend towards IBW. Physician Parameters for PEM Serum Albumin (g/dl) 3.5 - 5.0 (Normal)
[2016-08-30] MEDS: Multivitamin w/ Minerals Tab PO SCH (09:53)
[2016-08-30] MEDS: Artificial Tear Ophth Oint 3.5 Gm Tube EACH EYE SCH ×2 (09:53→16:22)
[2016-08-30] MEDS: risperiDONE 1 mg/mL 30 mL Bottle PO SCH ×2 (09:54→16:43)
--- NOTE | 2016-08-30 11:04 | Internal Medicine Prog Note ---
Internal Medicine Subjective - Subjective Service Date: 08/30/16 Patient is:: awake Per staff patient has:: no adverse event Internal Medicine Objective - Results Result Diagrams: 08/08/16 15:55 08/08/16 15:55 Recent Labs: Laboratory Last Values WBC 7.3 Th/cmm (4.8-10.8) 08/08/16 15:55 RBC 3.82 Mil/cmm (3.80-5.80) 08/08/16 15:55 Hgb 10.7 gm/dL (12.6-17.4) L 08/08/16 15:55 Hct 32.4 % (39.0-49.0) L 08/08/16 15:55 MCV 84.8 fl (80-99) 08/08/16 15:55 MCH 28.1 pg (27.0-31.0) 08/08/16 15:55 MCHC Differential 33.1 pg (28.0-36.0) 08/08/16 15:55 RDW 16.1 % (11.5-20.0) 08/08/16 15:55 Plt Count 305 Th/cmm (150-400) 08/08/16 15:55 MPV 7.6 fl 08/08/16 15:55 Neutrophils % 63.0 % (40.0-80.0) 08/08/16 15:55 Lymphocytes % 20.2 % (20.0-50.0) 08/08/16 15:55 Monocytes % 13.4 % (2.0-10.0) H 08/08/16 15:55 Eosinophils % 2.8 % (0.0-5.0) 08/08/16 15:55 Basophils % 0.6 % (0.0-2.0) 08/08/16 15:55 PT 10.5 SECONDS (9.5-11.5) 08/08/16 15:55 INR 1.01 (0.5-1.4) 08/08/16 15:55 PTT (Actin FS) 25.1 SECONDS (26.0-38.0) L 08/08/16 15:55 Sodium 136 mEq/L (136-145) 08/08/16 15:55 Potassium 4.1 mEq/L (3.5-5.1) 08/08/16 15:55 Chloride 107 mEq/L (98-107) 08/08/16 15:55 Carbon Dioxide 25.6 mEq/L (21.0-31.0) 08/08/16 15:55 Anion Gap 7.5 (7.0-16.0) 08/08/16 15:55 BUN 24 mg/dL (7-25) 08/08/16 15:55 Creatinine 0.6 mg/dL (0.7-1.3) L 08/08/16 15:55 Est GFR ( Amer) > 60.0 ml/min (>90) 08/08/16 15:55 Est GFR (Non-Af Amer) > 60.0 ml/min 08/08/16 15:55 BUN/Creatinine Ratio 40.0 08/08/16 15:55 Glucose 97 mg/dL (70-105) 08/08/16 15:55 Calcium 9.5 mg/dL (8.6-10.3) 08/08/16 15:55 Total Bilirubin 0.3 mg/dL (0.3-1.0) 08/08/16 15:55 AST 19 U/L (13-39) 08/08/16 15:55 ALT 18 U/L (7-52) 08/08/16 15:55 Alkaline Phosphatase 90 U/L (34-104) 08/08/16 15:55 Troponin I 0.05 ng/mL (0.01-0.05) 08/08/16 15:55 Total Protein 6.6 gm/dL (6.0-8.3) 08/08/16 15:55 Albumin 3.6 gm/dL (4.2-5.5) L 08/08/16 15:55 Globulin 3.0 gm/dL 08/08/16 15:55 Albumin/Globulin Ratio 1.2 (1.0-1.8) 08/08/16 15:55 Triglycerides 68 mg/dL (<150) 08/08/16 15:55 Cholesterol 187 mg/dL (<200) 08/08/16 15:55 LDL Cholesterol Direct 104 mg/dL (75-193) 08/08/16 15:55 HDL Cholesterol 76 mg/dL (23-92) 08/08/16 15:55 TSH 0.90 uIU/ml (0.34-5.60) 08/08/16 15:55 Urine Source CLEAN C 08/08/16 17:00 Urine Color YELLOW 08/08/16 17:00 Urine Clarity CLEAR (CLEAR) 08/08/16 17:00 Urine pH 6.0 08/08/16 17:00 Ur Specific [place] 1.030 (1.005-1.030) 08/08/16 17:00 Urine Protein NEGATIVE mg/dL (NEGATIVE) 08/08/16 17:00 Urine Glucose (UA) NEGATIVE mg/dL (NEGATIVE) 08/08/16 17:00 Urine Ketones NEGATIVE mg/dL (NEGATIVE) 08/08/16 17:00 Urine Blood NEGATIVE (NEGATIVE) 08/08/16 17:00 Urine Nitrate NEGATIVE (NEGATIVE) 08/08/16 17:00 Urine Bilirubin NEGATIVE (NEGATIVE) 08/08/16 17:00 Urine Urobilinogen 0.2 E.U./dL (0.2 - 1.0) 08/08/16 17:00 Ur Leukocyte Esterase NEGATIVE (NEGATIVE) 08/08/16 17:00 Urine RBC 0-1 /hpf (0-5) 08/08/16 17:00 Urine WBC 0-2 /hpf (0-5) 08/08/16 17:00 Ur Epithelial Cells FEW /lpf (FEW) 08/08/16 17:00 Urine Bacteria OCCASIONAL /hpf (NONE SEEN) 08/08/16 17:00 Urine Mucus FEW /lpf (FEW) 08/08/16 17:00 Valproic Acid 72.1 ug/mL (50.0-100.0) 08/28/16 12:05 RPR NONREACTIVE (NONREACTIVE) 08/08/16 15:55 - Physical Exam Vitals and I&O: Vital Signs Temp 98 F 08/30/16 06:55 Pulse 60 08/30/16 06:55 Resp 20 08/30/16 06:55 BP 141/70 08/30/16 06:55 Pulse Ox 99 08/30/16 06:55 Intake & Output 08/29/16 08/30/16 08/30/16 18:59 06:59 18:59 Intake Total 1000 240 Balance 1000 240 Intake: Oral 1000 240 Other: # Voids 4 3 # Bowel Movements 1 0 Active Medications: Current Medications Acetaminophen (Tylenol) 650 mg PO Q6H PRN PRN Reason: Pain (Mild) Stop: 10/22/16 10:16 Al Hydrox/Mg Hydrox/Simethicone (Maalox) 30 ml PO Q6H PRN PRN Reason: Dyspepsia Stop: 10/07/16 18:42 Last Admin: 08/24/16 22:59 Dose: 30 ml Artificial Tears (Lubrifresh Ophth Oint) 1 appl EACH EYE BID MAURO Stop: 10/08/16 16:59 Last Admin: 08/30/16 09:53 Dose: Not Given Ascorbic Acid (Vitamin C) 500 mg PO DAILY [facility] Stop: 10/08/16 08:59 Last Admin: 08/30/16 09:53 Dose: 500 mg Benzocaine/Menthol (Cepacol) 1 agustin MM Q4HR PRN PRN Reason: Sore Throat Stop: 10/08/16 15:09 Last Admin: 08/14/16 16:39 Dose: 1 agustin Divalproex Sodium (Depakote Sprinkle) 500 mg PO Q12HR MAURO PRN Reason: Protocol Stop: 10/24/16 20:59 Last Admin: 08/30/16 09:53 Dose: 500 mg Docusate Sodium (Colace) 100 mg PO DAILY [facility] Stop: 10/08/16 08:59 Last Admin: 08/30/16 09:53 Dose: 100 mg Ibuprofen (Motrin) 600 mg PO TID PRN PRN Reason: Pain (Mild) Stop: 10/07/16 18:38 Last Admin: 08/27/16 08:57 Dose: 600 mg Lorazepam (Ativan) 0.5 mg PO Q4HR PRN; Protocol PRN Reason: Anxiety Stop: 10/07/16 18:50 Last Admin: 08/27/16 08:50 Dose: 0.5 mg Magnesium Hydroxide (Milk Of Magnesia) 30 ml PO HS PRN PRN Reason: Constipation Stop: 10/07/16 18:42 Risperidone (Risperdal) 3 mg PO BID MAURO PRN Reason: Protocol Stop: 10/24/16 13:26 Last Admin: 08/30/16 09:54 Dose: 3 mg Zinc Sulfate (Zinc Sulfate) 220 mg PO DAILY [facility]URO Stop: 10/08/16 08:59 Last Admin: 08/30/16 09:53 Dose: 220 mg Zolpidem Tartrate (Ambien) 5 mg PO HS PRN PRN Reason: Insomnia Stop: 10/07/16 18:38 Last Admin: 08/12/16 23:15 Dose: 5 mg General: alert HEENT: NC/AT, PERRLA Neck: Supple Lungs: CTAB Cardiovascular: RRR, without murmur Abdomen: soft, non-tender, non-distended Neurological: no change Internal Medicine Assmt/Plan - Assessment Assessment: Anemia, low albumin mild protein-calorie malnutrition, sore throat gait instability thin built dry eyes mrsa nare possible bacteremia possible contamination - Plan Plan: artificial tears monitor for safety cpm Nutritional Asmnt/Malnutr-PDOC - Dietary Evaluation Malnutrition Findings (Please click <Entered> for more info): Nutritional Asmnt/Malnutrition Start: 08/12/16 12: 24 Text: Status: Complete Freq: Document 08/12/16 12:24 GSUN (Rec: 08/12/16 12:47 [email or web address] [email or web address]) Nutritional Asmnt/Malnutrition Patient General Information Nutritional Screening Moderate Risk Screening Diagnosis Paranoia, schizophrenia Pertinent Medical Hx/Surgical Hx Anemia, thin built, smoker, drinker, mild protein calorie malnutrition, schizophrenia Subjective Information 66 year old male from SNF. Pt was talkative, questionable historian, difficult to understand, rambled on. Pt report UBW 128lb, CBW via bedscale 137.3lb. Pt appeared overall thin, moderate wasting to temporals, chest, clavicles. Pt stated he is always hungry. Pt with few teeth intact, complained of food being pureed. RD explained current diet order to be ground. Pt stated he tolerated hamburger and crackers at SNF without difficulties. Diet order from [facility]: mech soft , finely chopped, KB. Avg PO intake 83% past 3 days, meeting nutritional needs. Current Diet Order/ Nutrition Support Mech soft ground, KB Pertinent Medications Vitamin C, Colace, MOM, Seroquel, Zinc Sulfate Pertinent Labs Reviewed. 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 Current %PO Good (75-100%) Estimated Nutritional Goals Calories/Kcals/Kg IBW 178lb/80.9kg Kcals Calculated 2022-2427kcal (25-30kcal/kg) Protein g/kg: IBW Protein Calculated 81g (1g/kg) Fluid: ml 2022-2427ml (1ml/kcal) Nutritional Problem 1. Problem Problem Underweight related to Etiology unknown etiology, energy imbalance aeb Signs/Symptoms: BMI 18.6, BMI 17.4 using pt report UBW, moderate fat/ muscle depletion, thin built and mild protein calorie malnutrition noted in H&P Intervention/Recommendation Comments 1. Continue with mech ground KB diet. Pt expressed disatisfaction with pureed meals. RD explained current ground diet order. Pt noted with few teeth intact. Diet order at [facility]: mech soft, finely chopped, KB . 2. Recommend Boost BID for additional kcal and prot, promote weight gain. Expected Outcomes/Goals Expected Outcomes/Goals 1. PO intake to meet 100% of estimated nutritional needs. 2. Weight trend towards IBW. Physician Parameters for PEM Serum Albumin (g/dl) 3.5 - 5.0 (Normal)
[2016-08-31] MEDS: risperiDONE 1 mg/mL 30 mL Bottle PO SCH ×2 (08:14→16:05)
[2016-08-31] MEDS: Multivitamin w/ Minerals Tab PO SCH (08:14)
[2016-08-31] MEDS: Artificial Tear Ophth Oint 3.5 Gm Tube EACH EYE SCH ×2 (08:15→16:01)
--- NOTE | 2016-08-31 15:56 | Internal Medicine Prog Note ---
Internal Medicine Subjective - Subjective Patient seen and examined:: with staff, chart reviewed Patient is:: awake, verbal, ambulating, denies any new complaints Per staff patient has:: no adverse event, no episodes of fall, eating well, tolerating meds Internal Medicine Objective - Results Result Diagrams: 08/08/16 15:55 08/08/16 15:55 Recent Labs: Laboratory Last Values WBC 7.3 Th/cmm (4.8-10.8) 08/08/16 15:55 RBC 3.82 Mil/cmm (3.80-5.80) 08/08/16 15:55 Hgb 10.7 gm/dL (12.6-17.4) L 08/08/16 15:55 Hct 32.4 % (39.0-49.0) L 08/08/16 15:55 MCV 84.8 fl (80-99) 08/08/16 15:55 MCH 28.1 pg (27.0-31.0) 08/08/16 15:55 MCHC Differential 33.1 pg (28.0-36.0) 08/08/16 15:55 RDW 16.1 % (11.5-20.0) 08/08/16 15:55 Plt Count 305 Th/cmm (150-400) 08/08/16 15:55 MPV 7.6 fl 08/08/16 15:55 Neutrophils % 63.0 % (40.0-80.0) 08/08/16 15:55 Lymphocytes % 20.2 % (20.0-50.0) 08/08/16 15:55 Monocytes % 13.4 % (2.0-10.0) H 08/08/16 15:55 Eosinophils % 2.8 % (0.0-5.0) 08/08/16 15:55 Basophils % 0.6 % (0.0-2.0) 08/08/16 15:55 PT 10.5 SECONDS (9.5-11.5) 08/08/16 15:55 INR 1.01 (0.5-1.4) 08/08/16 15:55 PTT (Actin FS) 25.1 SECONDS (26.0-38.0) L 08/08/16 15:55 Sodium 136 mEq/L (136-145) 08/08/16 15:55 Potassium 4.1 mEq/L (3.5-5.1) 08/08/16 15:55 Chloride 107 mEq/L (98-107) 08/08/16 15:55 Carbon Dioxide 25.6 mEq/L (21.0-31.0) 08/08/16 15:55 Anion Gap 7.5 (7.0-16.0) 08/08/16 15:55 BUN 24 mg/dL (7-25) 08/08/16 15:55 Creatinine 0.6 mg/dL (0.7-1.3) L 08/08/16 15:55 Est GFR ( Amer) > 60.0 ml/min (>90) 08/08/16 15:55 Est GFR (Non-Af Amer) > 60.0 ml/min 08/08/16 15:55 BUN/Creatinine Ratio 40.0 08/08/16 15:55 Glucose 97 mg/dL (70-105) 08/08/16 15:55 Calcium 9.5 mg/dL (8.6-10.3) 08/08/16 15:55 Total Bilirubin 0.3 mg/dL (0.3-1.0) 08/08/16 15:55 AST 19 U/L (13-39) 08/08/16 15:55 ALT 18 U/L (7-52) 08/08/16 15:55 Alkaline Phosphatase 90 U/L (34-104) 08/08/16 15:55 Troponin I 0.05 ng/mL (0.01-0.05) 08/08/16 15:55 Total Protein 6.6 gm/dL (6.0-8.3) 08/08/16 15:55 Albumin 3.6 gm/dL (4.2-5.5) L 08/08/16 15:55 Globulin 3.0 gm/dL 08/08/16 15:55 Albumin/Globulin Ratio 1.2 (1.0-1.8) 08/08/16 15:55 Triglycerides 68 mg/dL (<150) 08/08/16 15:55 Cholesterol 187 mg/dL (<200) 08/08/16 15:55 LDL Cholesterol Direct 104 mg/dL (75-193) 08/08/16 15:55 HDL Cholesterol 76 mg/dL (23-92) 08/08/16 15:55 TSH 0.90 uIU/ml (0.34-5.60) 08/08/16 15:55 Urine Source CLEAN C 08/08/16 17:00 Urine Color YELLOW 08/08/16 17:00 Urine Clarity CLEAR (CLEAR) 08/08/16 17:00 Urine pH 6.0 08/08/16 17:00 Ur Specific [place] 1.030 (1.005-1.030) 08/08/16 17:00 Urine Protein NEGATIVE mg/dL (NEGATIVE) 08/08/16 17:00 Urine Glucose (UA) NEGATIVE mg/dL (NEGATIVE) 08/08/16 17:00 Urine Ketones NEGATIVE mg/dL (NEGATIVE) 08/08/16 17:00 Urine Blood NEGATIVE (NEGATIVE) 08/08/16 17:00 Urine Nitrate NEGATIVE (NEGATIVE) 08/08/16 17:00 Urine Bilirubin NEGATIVE (NEGATIVE) 08/08/16 17:00 Urine Urobilinogen 0.2 E.U./dL (0.2 - 1.0) 08/08/16 17:00 Ur Leukocyte Esterase NEGATIVE (NEGATIVE) 08/08/16 17:00 Urine RBC 0-1 /hpf (0-5) 08/08/16 17:00 Urine WBC 0-2 /hpf (0-5) 08/08/16 17:00 Ur Epithelial Cells FEW /lpf (FEW) 08/08/16 17:00 Urine Bacteria OCCASIONAL /hpf (NONE SEEN) 08/08/16 17:00 Urine Mucus FEW /lpf (FEW) 08/08/16 17:00 Valproic Acid 72.1 ug/mL (50.0-100.0) 08/28/16 12:05 RPR NONREACTIVE (NONREACTIVE) 08/08/16 15:55 - Physical Exam Vitals and I&O: Vital Signs Temp 97.2 F 08/31/16 15:41 Pulse 75 08/31/16 15:41 Resp 20 08/31/16 15:41 BP 114/58 08/31/16 15:41 Pulse Ox 98 08/31/16 15:41 Intake & Output 08/30/16 08/31/16 08/31/16 18:59 06:59 18:59 Intake Total 1800 120 Output Total 0 Balance 1800 120 Intake: Oral 1800 120 Output: Stool 0 Other: # Voids 3 3 Active Medications: Current Medications Acetaminophen (Tylenol) 650 mg PO Q6H PRN PRN Reason: Pain (Mild) Stop: 10/22/16 10:16 Al Hydrox/Mg Hydrox/Simethicone (Maalox) 30 ml PO Q6H PRN PRN Reason: Dyspepsia Stop: 10/07/16 18:42 Last Admin: 08/24/16 22:59 Dose: 30 ml Artificial Tears (Lubrifresh Ophth Oint) 1 appl EACH EYE BID MAURO Stop: 10/08/16 16:59 Last Admin: 08/31/16 08:15 Dose: Not Given Ascorbic Acid (Vitamin C) 500 mg PO DAILY MAURO Stop: 10/08/16 08:59 Last Admin: 08/31/16 08:14 Dose: 500 mg Benzocaine/Menthol (Cepacol) 1 agustin MM Q4HR PRN PRN Reason: Sore Throat Stop: 10/08/16 15:09 Last Admin: 08/14/16 16:39 Dose: 1 agustin Divalproex Sodium (Depakote Sprinkle) 500 mg PO Q12HR MAURO PRN Reason: Protocol Stop: 10/24/16 20:59 Last Admin: 08/30/16 21:15 Dose: 500 mg Docusate Sodium (Colace) 100 mg PO DAILY [facility] Stop: 10/08/16 08:59 Last Admin: 08/31/16 08:14 Dose: 100 mg Ibuprofen (Motrin) 600 mg PO TID PRN PRN Reason: Pain (Mild) Stop: 10/07/16 18:38 Last Admin: 08/27/16 08:57 Dose: 600 mg Lorazepam (Ativan) 0.5 mg PO Q4HR PRN; Protocol PRN Reason: Anxiety Stop: 10/07/16 18:50 Last Admin: 08/27/16 08:50 Dose: 0.5 mg Magnesium Hydroxide (Milk Of Magnesia) 30 ml PO HS PRN PRN Reason: Constipation Stop: 10/07/16 18:42 Risperidone (Risperdal) 4 mg PO BID MAURO PRN Reason: Protocol Stop: 10/29/16 11:36 Last Admin: 08/31/16 08:14 Dose: 4 mg Zinc Sulfate (Zinc Sulfate) 220 mg PO DAILY [facility] Stop: 10/08/16 08:59 Last Admin: 08/31/16 08:14 Dose: 220 mg Zolpidem Tartrate (Ambien) 5 mg PO HS PRN PRN Reason: Insomnia Stop: 10/07/16 18:38 Last Admin: 08/12/16 23:15 Dose: 5 mg General: NAD HEENT: NC/AT, PERRLA, poor dentition Neck: Supple, No JVD, No LAD Lungs: CTAB Cardiovascular: RRR, Normal S1, Normal S2, without murmur Abdomen: soft, non-tender, tender, globular Extremities: excoriation, contracture, cyanosis, atrophy Neurological: no change, disorganized, gait stable Internal Medicine Assmt/Plan - Assessment Assessment: Anemia, low albumin, mild protein-calorie malnutrition, sore throat, gait instability, thin built, dry eyes mrsa nare, possible bacteremia, possible contamination - Plan Plan: will start on bactroban cont on nasids artificial tears nutritional support yee cifuentes Nutritional Asmnt/Malnutr-PDOC - Dietary Evaluation Malnutrition Findings (Please click <Entered> for more info): Nutritional Asmnt/Malnutrition Start: 08/12/16 12: 24 Text: Status: Complete Freq: Document 08/12/16 12:24 GSUN (Rec: 08/12/16 12:47 [email or web address] [email or web address]) Nutritional Asmnt/Malnutrition Patient General Information Nutritional Screening Moderate Risk Screening Diagnosis Paranoia, schizophrenia Pertinent Medical Hx/Surgical Hx Anemia, thin built, smoker, drinker, mild protein calorie malnutrition, schizophrenia Subjective Information 66 year old male from SNF. Pt was talkative, questionable historian, difficult to understand, rambled on. Pt report UBW 128lb, CBW via bedscale 137.3lb. Pt appeared overall thin, moderate wasting to temporals, chest, clavicles. Pt stated he is always hungry. Pt with few teeth intact, complained of food being pureed. RD explained current diet order to be ground. Pt stated he tolerated hamburger and crackers at [facility] without difficulties. Diet order from [facility]: mech soft , finely chopped, KB. Avg PO intake 83% past 3 days, meeting nutritional needs. Current Diet Order/ Nutrition Support [facility] soft ground, KB Pertinent Medications Vitamin C, Colace, MOM, Seroquel, Zinc Sulfate Pertinent Labs Reviewed. 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 Current %PO Good (75-100%) Estimated Nutritional Goals Calories/Kcals/Kg IBW 178lb/80.9kg Kcals Calculated 2022-2427kcal (25-30kcal/kg) Protein g/kg: IBW Protein Calculated 81g (1g/kg) Fluid: ml 2022-2427ml (1ml/kcal) Nutritional Problem 1. Problem Problem Underweight related to Etiology unknown etiology, energy imbalance aeb Signs/Symptoms: BMI 18.6, BMI 17.4 using pt report UBW, moderate fat/ muscle depletion, thin built and mild protein calorie malnutrition noted in H&P Intervention/Recommendation Comments 1. Continue with mech ground KB diet. Pt expressed disatisfaction with pureed meals. RD explained current ground diet order. Pt noted with few teeth intact. Diet order at [facility]: mech soft, finely chopped, KB . 2. Recommend Boost BID for additional kcal and prot, promote weight gain. Expected Outcomes/Goals Expected Outcomes/Goals 1. PO intake to meet 100% of estimated nutritional needs. 2. Weight trend towards IBW. Physician Parameters for PEM Serum Albumin (g/dl) 3.5 - 5.0 (Normal)
[2016-09-01] MEDS: Artificial Tear Ophth Oint 3.5 Gm Tube EACH EYE SCH ×2 (08:07→16:56)
[2016-09-01] MEDS: risperiDONE 1 mg/mL 30 mL Bottle PO SCH ×2 (08:07→16:57)
[2016-09-01] MEDS: Multivitamin w/ Minerals Tab PO SCH (08:07)
--- NOTE | 2016-09-01 11:57 | Internal Medicine Prog Note ---
Internal Medicine Subjective - Subjective Service Date: 09/01/16 Patient seen and examined:: with staff Patient is:: awake Per staff patient has:: no adverse event Internal Medicine Objective - Results Result Diagrams: 08/08/16 15:55 08/08/16 15:55 Recent Labs: Laboratory Last Values WBC 7.3 Th/cmm (4.8-10.8) 08/08/16 15:55 RBC 3.82 Mil/cmm (3.80-5.80) 08/08/16 15:55 Hgb 10.7 gm/dL (12.6-17.4) L 08/08/16 15:55 Hct 32.4 % (39.0-49.0) L 08/08/16 15:55 MCV 84.8 fl (80-99) 08/08/16 15:55 MCH 28.1 pg (27.0-31.0) 08/08/16 15:55 MCHC Differential 33.1 pg (28.0-36.0) 08/08/16 15:55 RDW 16.1 % (11.5-20.0) 08/08/16 15:55 Plt Count 305 Th/cmm (150-400) 08/08/16 15:55 MPV 7.6 fl 08/08/16 15:55 Neutrophils % 63.0 % (40.0-80.0) 08/08/16 15:55 Lymphocytes % 20.2 % (20.0-50.0) 08/08/16 15:55 Monocytes % 13.4 % (2.0-10.0) H 08/08/16 15:55 Eosinophils % 2.8 % (0.0-5.0) 08/08/16 15:55 Basophils % 0.6 % (0.0-2.0) 08/08/16 15:55 PT 10.5 SECONDS (9.5-11.5) 08/08/16 15:55 INR 1.01 (0.5-1.4) 08/08/16 15:55 PTT (Actin FS) 25.1 SECONDS (26.0-38.0) L 08/08/16 15:55 Sodium 136 mEq/L (136-145) 08/08/16 15:55 Potassium 4.1 mEq/L (3.5-5.1) 08/08/16 15:55 Chloride 107 mEq/L (98-107) 08/08/16 15:55 Carbon Dioxide 25.6 mEq/L (21.0-31.0) 08/08/16 15:55 Anion Gap 7.5 (7.0-16.0) 08/08/16 15:55 BUN 24 mg/dL (7-25) 08/08/16 15:55 Creatinine 0.6 mg/dL (0.7-1.3) L 08/08/16 15:55 Est GFR ( Amer) > 60.0 ml/min (>90) 08/08/16 15:55 Est GFR (Non-Af Amer) > 60.0 ml/min 08/08/16 15:55 BUN/Creatinine Ratio 40.0 08/08/16 15:55 Glucose 97 mg/dL (70-105) 08/08/16 15:55 Calcium 9.5 mg/dL (8.6-10.3) 08/08/16 15:55 Total Bilirubin 0.3 mg/dL (0.3-1.0) 08/08/16 15:55 AST 19 U/L (13-39) 08/08/16 15:55 ALT 18 U/L (7-52) 08/08/16 15:55 Alkaline Phosphatase 90 U/L (34-104) 08/08/16 15:55 Troponin I 0.05 ng/mL (0.01-0.05) 08/08/16 15:55 Total Protein 6.6 gm/dL (6.0-8.3) 08/08/16 15:55 Albumin 3.6 gm/dL (4.2-5.5) L 08/08/16 15:55 Globulin 3.0 gm/dL 08/08/16 15:55 Albumin/Globulin Ratio 1.2 (1.0-1.8) 08/08/16 15:55 Triglycerides 68 mg/dL (<150) 08/08/16 15:55 Cholesterol 187 mg/dL (<200) 08/08/16 15:55 LDL Cholesterol Direct 104 mg/dL (75-193) 08/08/16 15:55 HDL Cholesterol 76 mg/dL (23-92) 08/08/16 15:55 TSH 0.90 uIU/ml (0.34-5.60) 08/08/16 15:55 Urine Source CLEAN C 08/08/16 17:00 Urine Color YELLOW 08/08/16 17:00 Urine Clarity CLEAR (CLEAR) 08/08/16 17:00 Urine pH 6.0 08/08/16 17:00 Ur Specific [place] 1.030 (1.005-1.030) 08/08/16 17:00 Urine Protein NEGATIVE mg/dL (NEGATIVE) 08/08/16 17:00 Urine Glucose (UA) NEGATIVE mg/dL (NEGATIVE) 08/08/16 17:00 Urine Ketones NEGATIVE mg/dL (NEGATIVE) 08/08/16 17:00 Urine Blood NEGATIVE (NEGATIVE) 08/08/16 17:00 Urine Nitrate NEGATIVE (NEGATIVE) 08/08/16 17:00 Urine Bilirubin NEGATIVE (NEGATIVE) 08/08/16 17:00 Urine Urobilinogen 0.2 E.U./dL (0.2 - 1.0) 08/08/16 17:00 Ur Leukocyte Esterase NEGATIVE (NEGATIVE) 08/08/16 17:00 Urine RBC 0-1 /hpf (0-5) 08/08/16 17:00 Urine WBC 0-2 /hpf (0-5) 08/08/16 17:00 Ur Epithelial Cells FEW /lpf (FEW) 08/08/16 17:00 Urine Bacteria OCCASIONAL /hpf (NONE SEEN) 08/08/16 17:00 Urine Mucus FEW /lpf (FEW) 08/08/16 17:00 Valproic Acid 72.1 ug/mL (50.0-100.0) 08/28/16 12:05 RPR NONREACTIVE (NONREACTIVE) 08/08/16 15:55 - Physical Exam Vitals and I&O: Vital Signs Temp 98 F 08/31/16 20:31 Pulse 61 08/31/16 20:31 Resp 19 08/31/16 20:31 BP 137/67 08/31/16 20:31 Pulse Ox 96 08/31/16 20:31 Intake & Output 08/31/16 09/01/16 09/01/16 18:59 06:59 18:59 Intake Total 240 Balance 240 Intake: Oral 240 Other: # Voids 1 # Bowel Movements 0 Active Medications: Current Medications Acetaminophen (Tylenol) 650 mg PO Q6H PRN PRN Reason: Pain (Mild) Stop: 10/22/16 10:16 Al Hydrox/Mg Hydrox/Simethicone (Maalox) 30 ml PO Q6H PRN PRN Reason: Dyspepsia Stop: 10/07/16 18:42 Last Admin: 08/24/16 22:59 Dose: 30 ml Artificial Tears (Lubrifresh Ophth Oint) 1 appl EACH EYE BID MAURO Stop: 10/08/16 16:59 Last Admin: 09/01/16 08:07 Dose: Not Given Ascorbic Acid (Vitamin C) 500 mg PO DAILY [facility] Stop: 10/08/16 08:59 Last Admin: 09/01/16 08:07 Dose: 500 mg Benzocaine/Menthol (Cepacol) 1 agustin MM Q4HR PRN PRN Reason: Sore Throat Stop: 10/08/16 15:09 Last Admin: 08/14/16 16:39 Dose: 1 agustin Divalproex Sodium (Depakote Sprinkle) 500 mg PO Q12HR MAURO PRN Reason: Protocol Stop: 10/24/16 20:59 Last Admin: 09/01/16 08:07 Dose: 500 mg Docusate Sodium (Colace) 100 mg PO DAILY [facility] Stop: 10/08/16 08:59 Last Admin: 09/01/16 08:07 Dose: 100 mg Ibuprofen (Motrin) 600 mg PO TID PRN PRN Reason: Pain (Mild) Stop: 10/07/16 18:38 Last Admin: 08/27/16 08:57 Dose: 600 mg Lorazepam (Ativan) 0.5 mg PO Q4HR PRN; Protocol PRN Reason: Anxiety Stop: 10/07/16 18:50 Last Admin: 08/27/16 08:50 Dose: 0.5 mg Magnesium Hydroxide (Milk Of Magnesia) 30 ml PO HS PRN PRN Reason: Constipation Stop: 10/07/16 18:42 Quetiapine Fumarate (Seroquel) 100 mg PO HS MAURO PRN Reason: Protocol Stop: 10/31/16 20:59 Risperidone (Risperdal) 4 mg PO BID MAURO PRN Reason: Protocol Stop: 10/29/16 11:36 Last Admin: 09/01/16 08:07 Dose: 4 mg Zinc Sulfate (Zinc Sulfate) 220 mg PO DAILY [facility]URO Stop: 10/08/16 08:59 Last Admin: 09/01/16 08:07 Dose: 220 mg Zolpidem Tartrate (Ambien) 5 mg PO HS PRN PRN Reason: Insomnia Stop: 10/07/16 18:38 Last Admin: 08/12/16 23:15 Dose: 5 mg General: alert HEENT: NC/AT, PERRLA Neck: Supple Lungs: CTAB Cardiovascular: RRR, Normal S1, Normal S2, without murmur Abdomen: soft, non-tender, non-distended, positive bowel sound Neurological: no change Internal Medicine Assmt/Plan - Assessment Assessment: Anemia, low albumin mild protein-calorie malnutrition, sore throat gait instability thin built dry eyes mrsa nare possible bacteremia possible contamination - Plan Plan: artificial tears monitor for safety cpm Nutritional Asmnt/Malnutr-PDOC - Dietary Evaluation Malnutrition Findings (Please click <Entered> for more info): Nutritional Asmnt/Malnutrition Start: 08/12/16 12: 24 Text: Status: Complete Freq: Document 08/12/16 12:24 GSUN (Rec: 08/12/16 12:47 [email or web address] [id number]) Nutritional Asmnt/Malnutrition Patient General Information Nutritional Screening Moderate Risk Screening Diagnosis Paranoia, schizophrenia Pertinent Medical Hx/Surgical Hx Anemia, thin built, smoker, drinker, mild protein calorie malnutrition, schizophrenia Subjective Information 66 year old male from SNF. Pt was talkative, questionable historian, difficult to understand, rambled on. Pt report UBW 128lb, CBW via bedscale 137.3lb. Pt appeared overall thin, moderate wasting to temporals, chest, clavicles. Pt stated he is always hungry. Pt with few teeth intact, complained of food being pureed. RD explained current diet order to be ground. Pt stated he tolerated hamburger and crackers at [facility] without difficulties. Diet order from [facility]: [facility] soft , finely chopped, KB. Avg PO intake 83% past 3 days, meeting nutritional needs. Current Diet Order/ Nutrition Support [facility] soft ground, KB Pertinent Medications Vitamin C, Colace, MOM, Seroquel, Zinc Sulfate Pertinent Labs Reviewed. 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 Current %PO Good (75-100%) Estimated Nutritional Goals Calories/Kcals/Kg IBW 178lb/80.9kg Kcals Calculated 2022-2427kcal (25-30kcal/kg) Protein g/kg: IBW Protein Calculated 81g (1g/kg) Fluid: ml 2022-2427ml (1ml/kcal) Nutritional Problem 1. Problem Problem Underweight related to Etiology unknown etiology, energy imbalance aeb Signs/Symptoms: BMI 18.6, BMI 17.4 using pt report UBW, moderate fat/ muscle depletion, thin built and mild protein calorie malnutrition noted in H&P Intervention/Recommendation Comments 1. Continue with mech ground KB diet. Pt expressed disatisfaction with pureed meals. RD explained current ground diet order. Pt noted with few teeth intact. Diet order at [facility]: mech soft, finely chopped, KB . 2. Recommend Boost BID for additional kcal and prot, promote weight gain. Expected Outcomes/Goals Expected Outcomes/Goals 1. PO intake to meet 100% of estimated nutritional needs. 2. Weight trend towards IBW. Physician Parameters for PEM Serum Albumin (g/dl) 3.5 - 5.0 (Normal)
--- NOTE | 2016-09-02 08:41 | Internal Medicine Prog Note ---
Internal Medicine Subjective - Subjective Service Date: 09/02/16 Patient seen and examined:: with staff Patient is:: awake Patient Complaints of:: congestion Per staff patient has:: no adverse event Internal Medicine Objective - Results Result Diagrams: 08/08/16 15:55 08/08/16 15:55 Recent Labs: Laboratory Last Values WBC 7.3 Th/cmm (4.8-10.8) 08/08/16 15:55 RBC 3.82 Mil/cmm (3.80-5.80) 08/08/16 15:55 Hgb 10.7 gm/dL (12.6-17.4) L 08/08/16 15:55 Hct 32.4 % (39.0-49.0) L 08/08/16 15:55 MCV 84.8 fl (80-99) 08/08/16 15:55 MCH 28.1 pg (27.0-31.0) 08/08/16 15:55 MCHC Differential 33.1 pg (28.0-36.0) 08/08/16 15:55 RDW 16.1 % (11.5-20.0) 08/08/16 15:55 Plt Count 305 Th/cmm (150-400) 08/08/16 15:55 MPV 7.6 fl 08/08/16 15:55 Neutrophils % 63.0 % (40.0-80.0) 08/08/16 15:55 Lymphocytes % 20.2 % (20.0-50.0) 08/08/16 15:55 Monocytes % 13.4 % (2.0-10.0) H 08/08/16 15:55 Eosinophils % 2.8 % (0.0-5.0) 08/08/16 15:55 Basophils % 0.6 % (0.0-2.0) 08/08/16 15:55 PT 10.5 SECONDS (9.5-11.5) 08/08/16 15:55 INR 1.01 (0.5-1.4) 08/08/16 15:55 PTT (Actin FS) 25.1 SECONDS (26.0-38.0) L 08/08/16 15:55 Sodium 136 mEq/L (136-145) 08/08/16 15:55 Potassium 4.1 mEq/L (3.5-5.1) 08/08/16 15:55 Chloride 107 mEq/L (98-107) 08/08/16 15:55 Carbon Dioxide 25.6 mEq/L (21.0-31.0) 08/08/16 15:55 Anion Gap 7.5 (7.0-16.0) 08/08/16 15:55 BUN 24 mg/dL (7-25) 08/08/16 15:55 Creatinine 0.6 mg/dL (0.7-1.3) L 08/08/16 15:55 Est GFR ( Amer) > 60.0 ml/min (>90) 08/08/16 15:55 Est GFR (Non-Af Amer) > 60.0 ml/min 08/08/16 15:55 BUN/Creatinine Ratio 40.0 08/08/16 15:55 Glucose 97 mg/dL (70-105) 08/08/16 15:55 Calcium 9.5 mg/dL (8.6-10.3) 08/08/16 15:55 Total Bilirubin 0.3 mg/dL (0.3-1.0) 08/08/16 15:55 AST 19 U/L (13-39) 08/08/16 15:55 ALT 18 U/L (7-52) 08/08/16 15:55 Alkaline Phosphatase 90 U/L (34-104) 08/08/16 15:55 Troponin I 0.05 ng/mL (0.01-0.05) 08/08/16 15:55 Total Protein 6.6 gm/dL (6.0-8.3) 08/08/16 15:55 Albumin 3.6 gm/dL (4.2-5.5) L 08/08/16 15:55 Globulin 3.0 gm/dL 08/08/16 15:55 Albumin/Globulin Ratio 1.2 (1.0-1.8) 08/08/16 15:55 Triglycerides 68 mg/dL (<150) 08/08/16 15:55 Cholesterol 187 mg/dL (<200) 08/08/16 15:55 LDL Cholesterol Direct 104 mg/dL (75-193) 08/08/16 15:55 HDL Cholesterol 76 mg/dL (23-92) 08/08/16 15:55 TSH 0.90 uIU/ml (0.34-5.60) 08/08/16 15:55 Urine Source CLEAN C 08/08/16 17:00 Urine Color YELLOW 08/08/16 17:00 Urine Clarity CLEAR (CLEAR) 08/08/16 17:00 Urine pH 6.0 08/08/16 17:00 Ur Specific [place] 1.030 (1.005-1.030) 08/08/16 17:00 Urine Protein NEGATIVE mg/dL (NEGATIVE) 08/08/16 17:00 Urine Glucose (UA) NEGATIVE mg/dL (NEGATIVE) 08/08/16 17:00 Urine Ketones NEGATIVE mg/dL (NEGATIVE) 08/08/16 17:00 Urine Blood NEGATIVE (NEGATIVE) 08/08/16 17:00 Urine Nitrate NEGATIVE (NEGATIVE) 08/08/16 17:00 Urine Bilirubin NEGATIVE (NEGATIVE) 08/08/16 17:00 Urine Urobilinogen 0.2 E.U./dL (0.2 - 1.0) 08/08/16 17:00 Ur Leukocyte Esterase NEGATIVE (NEGATIVE) 08/08/16 17:00 Urine RBC 0-1 /hpf (0-5) 08/08/16 17:00 Urine WBC 0-2 /hpf (0-5) 08/08/16 17:00 Ur Epithelial Cells FEW /lpf (FEW) 08/08/16 17:00 Urine Bacteria OCCASIONAL /hpf (NONE SEEN) 08/08/16 17:00 Urine Mucus FEW /lpf (FEW) 08/08/16 17:00 Valproic Acid 72.1 ug/mL (50.0-100.0) 08/28/16 12:05 RPR NONREACTIVE (NONREACTIVE) 08/08/16 15:55 - Physical Exam Vitals and I&O: Vital Signs Temp 97.0 F 09/02/16 06:28 Pulse 56 09/02/16 06:28 Resp 18 09/02/16 06:28 BP 128/60 09/02/16 06:28 Pulse Ox 95 09/02/16 06:28 Intake & Output 09/01/16 09/02/16 09/02/16 18:59 06:59 18:59 Intake Total 950 240 Balance 950 240 Intake: Oral 950 240 Other: # Voids 4 4 # Bowel Movements 1 0 Active Medications: Current Medications Acetaminophen (Tylenol) 650 mg PO Q6H PRN PRN Reason: Pain (Mild) Stop: 10/22/16 10:16 Al Hydrox/Mg Hydrox/Simethicone (Maalox) 30 ml PO Q6H PRN PRN Reason: Dyspepsia Stop: 10/07/16 18:42 Last Admin: 08/24/16 22:59 Dose: 30 ml Artificial Tears (Lubrifresh Ophth Oint) 1 appl EACH EYE BID [facility] Stop: 10/08/16 16:59 Last Admin: 09/01/16 16:56 Dose: Not Given Ascorbic Acid (Vitamin C) 500 mg PO DAILY [facility] Stop: 10/08/16 08:59 Last Admin: 09/01/16 08:07 Dose: 500 mg Benzocaine/Menthol (Cepacol) 1 agustin MM Q4HR PRN PRN Reason: Sore Throat Stop: 10/08/16 15:09 Last Admin: 08/14/16 16:39 Dose: 1 agustin Divalproex Sodium (Depakote Sprinkle) 500 mg PO Q12HR [facility] PRN Reason: Protocol Stop: 10/24/16 20:59 Last Admin: 09/01/16 20:59 Dose: 500 mg Docusate Sodium (Colace) 100 mg PO DAILY [facility] Stop: 10/08/16 08:59 Last Admin: 09/01/16 08:07 Dose: 100 mg Ibuprofen (Motrin) 600 mg PO TID PRN PRN Reason: Pain (Mild) Stop: 10/07/16 18:38 Last Admin: 08/27/16 08:57 Dose: 600 mg Lorazepam (Ativan) 0.5 mg PO Q4HR PRN; Protocol PRN Reason: Anxiety Stop: 10/07/16 18:50 Last Admin: 08/27/16 08:50 Dose: 0.5 mg Magnesium Hydroxide (Milk Of Magnesia) 30 ml PO HS PRN PRN Reason: Constipation Stop: 10/07/16 18:42 Quetiapine Fumarate (Seroquel) 100 mg PO HS [facility] PRN Reason: Protocol Stop: 10/31/16 20:59 Last Admin: 09/01/16 20:59 Dose: 100 mg Risperidone (Risperdal) 4 mg PO BID [facility] PRN Reason: Protocol Stop: 10/29/16 11:36 Last Admin: 09/01/16 16:57 Dose: 4 mg Zinc Sulfate (Zinc Sulfate) 220 mg PO DAILY [facility] Stop: 10/08/16 08:59 Last Admin: 09/01/16 08:07 Dose: 220 mg Zolpidem Tartrate (Ambien) 5 mg PO HS PRN PRN Reason: Insomnia Stop: 10/07/16 18:38 Last Admin: 08/12/16 23:15 Dose: 5 mg General: alert HEENT: NC/AT, PERRLA Neck: Supple Lungs: CTAB Cardiovascular: RRR, Normal S1, Normal S2, without murmur Abdomen: soft, non-tender, non-distended, positive bowel sound Extremities: excoriation, contracture, cyanosis, atrophy Neurological: no change Internal Medicine Assmt/Plan - Assessment Assessment: Anemia, low albumin mild protein-calorie malnutrition, sore throat gait instability thin built dry eyes mrsa nare possible bacteremia possible contamination - Plan Plan: artificial tears monitor for safety cpm Nutritional Asmnt/Malnutr-PDOC - Dietary Evaluation Malnutrition Findings (Please click <Entered> for more info): Nutritional Asmnt/Malnutrition Start: 08/12/16 12: 24 Text: Status: Complete Freq: Document 08/12/16 12:24 GSUN (Rec: 08/12/16 12:47 [email or web address] [email or web address]) Nutritional Asmnt/Malnutrition Patient General Information Nutritional Screening Moderate Risk Screening Diagnosis Paranoia, schizophrenia Pertinent Medical Hx/Surgical Hx Anemia, thin built, smoker, drinker, mild protein calorie malnutrition, schizophrenia Subjective Information 66 year old male from SNF. Pt was talkative, questionable historian, difficult to understand, rambled on. Pt report UBW 128lb, CBW via bedscale 137.3lb. Pt appeared overall thin, moderate wasting to temporals, chest, clavicles. Pt stated he is always hungry. Pt with few teeth intact, complained of food being pureed. RD explained current diet order to be ground. Pt stated he tolerated hamburger and crackers at [facility] without difficulties. Diet order from [facility]: mech soft , finely chopped, KB. Avg PO intake 83% past 3 days, meeting nutritional needs. Current Diet Order/ Nutrition Support [facility] soft ground, KB Pertinent Medications Vitamin C, Colace, MOM, Seroquel, Zinc Sulfate Pertinent Labs Reviewed. 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 Current %PO Good (75-100%) Estimated Nutritional Goals Calories/Kcals/Kg IBW 178lb/80.9kg Kcals Calculated 2022-2427kcal (25-30kcal/kg) Protein g/kg: IBW Protein Calculated 81g (1g/kg) Fluid: ml 2022-2427ml (1ml/kcal) Nutritional Problem 1. Problem Problem Underweight related to Etiology unknown etiology, energy imbalance aeb Signs/Symptoms: BMI 18.6, BMI 17.4 using pt report UBW, moderate fat/ muscle depletion, thin built and mild protein calorie malnutrition noted in H&P Intervention/Recommendation Comments 1. Continue with mech ground KB diet. Pt expressed disatisfaction with pureed meals. RD explained current ground diet order. Pt noted with few teeth intact. Diet order at [facility]: mech soft, finely chopped, KB . 2. Recommend Boost BID for additional kcal and prot, promote weight gain. Expected Outcomes/Goals Expected Outcomes/Goals 1. PO intake to meet 100% of estimated nutritional needs. 2. Weight trend towards IBW. Physician Parameters for PEM Serum Albumin (g/dl) 3.5 - 5.0 (Normal)
[2016-09-02] MEDS: Multivitamin w/ Minerals Tab PO SCH ×2 (09:37→17:30)
[2016-09-02] MEDS: Artificial Tear Ophth Oint 3.5 Gm Tube EACH EYE SCH ×2 (09:37→17:30)
[2016-09-02] MEDS: risperiDONE 1 mg/mL 30 mL Bottle PO SCH (09:38)
[2016-09-02] MEDS ORDERED: risperiDONE 1 mg/mL 30 mL Bottle PO SCH (11:16)
[2016-09-03] MEDS: Artificial Tear Ophth Oint 3.5 Gm Tube EACH EYE SCH ×3 (08:18→16:57)
[2016-09-03] MEDS: Multivitamin w/ Minerals Tab PO SCH (08:20)
--- NOTE | 2016-09-03 12:16 | Internal Medicine Prog Note ---
Internal Medicine Subjective - Subjective Service Date: 09/03/16 Patient seen and examined:: with staff Patient is:: awake Patient Complaints of:: congestion Per staff patient has:: no adverse event Internal Medicine Objective - Results Result Diagrams: 08/08/16 15:55 08/08/16 15:55 Recent Labs: Laboratory Last Values WBC 7.3 Th/cmm (4.8-10.8) 08/08/16 15:55 RBC 3.82 Mil/cmm (3.80-5.80) 08/08/16 15:55 Hgb 10.7 gm/dL (12.6-17.4) L 08/08/16 15:55 Hct 32.4 % (39.0-49.0) L 08/08/16 15:55 MCV 84.8 fl (80-99) 08/08/16 15:55 MCH 28.1 pg (27.0-31.0) 08/08/16 15:55 MCHC Differential 33.1 pg (28.0-36.0) 08/08/16 15:55 RDW 16.1 % (11.5-20.0) 08/08/16 15:55 Plt Count 305 Th/cmm (150-400) 08/08/16 15:55 MPV 7.6 fl 08/08/16 15:55 Neutrophils % 63.0 % (40.0-80.0) 08/08/16 15:55 Lymphocytes % 20.2 % (20.0-50.0) 08/08/16 15:55 Monocytes % 13.4 % (2.0-10.0) H 08/08/16 15:55 Eosinophils % 2.8 % (0.0-5.0) 08/08/16 15:55 Basophils % 0.6 % (0.0-2.0) 08/08/16 15:55 PT 10.5 SECONDS (9.5-11.5) 08/08/16 15:55 INR 1.01 (0.5-1.4) 08/08/16 15:55 PTT (Actin FS) 25.1 SECONDS (26.0-38.0) L 08/08/16 15:55 Sodium 136 mEq/L (136-145) 08/08/16 15:55 Potassium 4.1 mEq/L (3.5-5.1) 08/08/16 15:55 Chloride 107 mEq/L (98-107) 08/08/16 15:55 Carbon Dioxide 25.6 mEq/L (21.0-31.0) 08/08/16 15:55 Anion Gap 7.5 (7.0-16.0) 08/08/16 15:55 BUN 24 mg/dL (7-25) 08/08/16 15:55 Creatinine 0.6 mg/dL (0.7-1.3) L 08/08/16 15:55 Est GFR ( Amer) > 60.0 ml/min (>90) 08/08/16 15:55 Est GFR (Non-Af Amer) > 60.0 ml/min 08/08/16 15:55 BUN/Creatinine Ratio 40.0 08/08/16 15:55 Glucose 97 mg/dL (70-105) 08/08/16 15:55 Calcium 9.5 mg/dL (8.6-10.3) 08/08/16 15:55 Total Bilirubin 0.3 mg/dL (0.3-1.0) 08/08/16 15:55 AST 19 U/L (13-39) 08/08/16 15:55 ALT 18 U/L (7-52) 08/08/16 15:55 Alkaline Phosphatase 90 U/L (34-104) 08/08/16 15:55 Troponin I 0.05 ng/mL (0.01-0.05) 08/08/16 15:55 Total Protein 6.6 gm/dL (6.0-8.3) 08/08/16 15:55 Albumin 3.6 gm/dL (4.2-5.5) L 08/08/16 15:55 Globulin 3.0 gm/dL 08/08/16 15:55 Albumin/Globulin Ratio 1.2 (1.0-1.8) 08/08/16 15:55 Triglycerides 68 mg/dL (<150) 08/08/16 15:55 Cholesterol 187 mg/dL (<200) 08/08/16 15:55 LDL Cholesterol Direct 104 mg/dL (75-193) 08/08/16 15:55 HDL Cholesterol 76 mg/dL (23-92) 08/08/16 15:55 TSH 0.90 uIU/ml (0.34-5.60) 08/08/16 15:55 Urine Source CLEAN C 08/08/16 17:00 Urine Color YELLOW 08/08/16 17:00 Urine Clarity CLEAR (CLEAR) 08/08/16 17:00 Urine pH 6.0 08/08/16 17:00 Ur Specific [place] 1.030 (1.005-1.030) 08/08/16 17:00 Urine Protein NEGATIVE mg/dL (NEGATIVE) 08/08/16 17:00 Urine Glucose (UA) NEGATIVE mg/dL (NEGATIVE) 08/08/16 17:00 Urine Ketones NEGATIVE mg/dL (NEGATIVE) 08/08/16 17:00 Urine Blood NEGATIVE (NEGATIVE) 08/08/16 17:00 Urine Nitrate NEGATIVE (NEGATIVE) 08/08/16 17:00 Urine Bilirubin NEGATIVE (NEGATIVE) 08/08/16 17:00 Urine Urobilinogen 0.2 E.U./dL (0.2 - 1.0) 08/08/16 17:00 Ur Leukocyte Esterase NEGATIVE (NEGATIVE) 08/08/16 17:00 Urine RBC 0-1 /hpf (0-5) 08/08/16 17:00 Urine WBC 0-2 /hpf (0-5) 08/08/16 17:00 Ur Epithelial Cells FEW /lpf (FEW) 08/08/16 17:00 Urine Bacteria OCCASIONAL /hpf (NONE SEEN) 08/08/16 17:00 Urine Mucus FEW /lpf (FEW) 08/08/16 17:00 Valproic Acid 72.1 ug/mL (50.0-100.0) 08/28/16 12:05 RPR NONREACTIVE (NONREACTIVE) 08/08/16 15:55 - Physical Exam Vitals and I&O: Vital Signs Temp 97.9 F 09/03/16 06:04 Pulse 70 09/03/16 08:00 Resp 20 09/03/16 08:00 BP 121/79 09/03/16 06:04 Pulse Ox 97 09/03/16 06:04 Intake & Output 09/02/16 09/03/16 09/03/16 18:59 06:59 18:59 Intake Total 1000 480 Balance 1000 480 Intake: Oral 1000 480 Other: # Voids 4 1 # Bowel Movements 1 Active Medications: Current Medications Acetaminophen (Tylenol) 650 mg PO Q6H PRN PRN Reason: Pain (Mild) Stop: 10/22/16 10:16 Al Hydrox/Mg Hydrox/Simethicone (Maalox) 30 ml PO Q6H PRN PRN Reason: Dyspepsia Stop: 10/07/16 18:42 Last Admin: 08/24/16 22:59 Dose: 30 ml Artificial Tears (Lubrifresh Ophth Oint) 1 appl EACH EYE BID [facility] Stop: 10/08/16 16:59 Last Admin: 09/03/16 08:29 Dose: Not Given Ascorbic Acid (Vitamin C) 500 mg PO DAILY [facility] Stop: 10/08/16 08:59 Last Admin: 09/03/16 08:18 Dose: 500 mg Benzocaine/Menthol (Cepacol) 1 agustin MM Q4HR PRN PRN Reason: Sore Throat Stop: 10/08/16 15:09 Last Admin: 08/14/16 16:39 Dose: 1 agustin Divalproex Sodium (Depakote Sprinkle) 500 mg PO Q12HR [facility] PRN Reason: Protocol Stop: 10/24/16 20:59 Last Admin: 09/03/16 08:19 Dose: 500 mg Docusate Sodium (Colace) 100 mg PO DAILY [facility] Stop: 10/08/16 08:59 Last Admin: 09/03/16 08:30 Dose: Not Given Ibuprofen (Motrin) 600 mg PO TID PRN PRN Reason: Pain (Mild) Stop: 10/07/16 18:38 Last Admin: 08/27/16 08:57 Dose: 600 mg Lorazepam (Ativan) 0.5 mg PO Q4HR PRN; Protocol PRN Reason: Anxiety Stop: 10/07/16 18:50 Last Admin: 08/27/16 08:50 Dose: 0.5 mg Magnesium Hydroxide (Milk Of Magnesia) 30 ml PO HS PRN PRN Reason: Constipation Stop: 10/07/16 18:42 Quetiapine Fumarate (Seroquel) 300 mg PO HS [facility] PRN Reason: Protocol Stop: 11/02/16 20:59 Risperidone (Risperdal) 1 mg PO BID [facility]O PRN Reason: Protocol Stop: 11/02/16 10:34 Zinc Sulfate (Zinc Sulfate) 220 mg PO DAILY [facility] Stop: 10/08/16 08:59 Last Admin: 09/03/16 08:20 Dose: 220 mg Zolpidem Tartrate (Ambien) 5 mg PO HS PRN PRN Reason: Insomnia Stop: 10/07/16 18:38 Last Admin: 08/12/16 23:15 Dose: 5 mg General: alert HEENT: NC/AT, PERRLA Neck: Supple Lungs: CTAB Cardiovascular: RRR, Normal S1, Normal S2, without murmur Abdomen: soft, non-tender, non-distended, positive bowel sound Extremities: excoriation, contracture, cyanosis, atrophy Neurological: no change Internal Medicine Assmt/Plan - Assessment Assessment: Anemia, low albumin mild protein-calorie malnutrition, sore throat gait instability thin built dry eyes mrsa nare possible bacteremia possible contamination - Plan Plan: artificial tears monitor for safety cpm Nutritional Asmnt/Malnutr-PDOC - Dietary Evaluation Malnutrition Findings (Please click <Entered> for more info): Nutritional Asmnt/Malnutrition Start: 08/12/16 12: 24 Text: Status: Complete Freq: Document 08/12/16 12:24 GSUN (Rec: 08/12/16 12:47 [email or web address] [email or web address]) Nutritional Asmnt/Malnutrition Patient General Information Nutritional Screening Moderate Risk Screening Diagnosis Paranoia, schizophrenia Pertinent Medical Hx/Surgical Hx Anemia, thin built, smoker, drinker, mild protein calorie malnutrition, schizophrenia Subjective Information 66 year old male from SNF. Pt was talkative, questionable historian, difficult to understand, rambled on. Pt report UBW 128lb, CBW via bedscale 137.3lb. Pt appeared overall thin, moderate wasting to temporals, chest, clavicles. Pt stated he is always hungry. Pt with few teeth intact, complained of food being pureed. RD explained current diet order to be ground. Pt stated he tolerated hamburger and crackers at [facility] without difficulties. Diet order from [facility]: mech soft , finely chopped, KB. Avg PO intake 83% past 3 days, meeting nutritional needs. Current Diet Order/ Nutrition Support [place] soft ground, KB Pertinent Medications Vitamin C, Colace, MOM, Seroquel, Zinc Sulfate Pertinent Labs Reviewed. 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 Current %PO Good (75-100%) Estimated Nutritional Goals Calories/Kcals/Kg IBW 178lb/80.9kg Kcals Calculated 2022-2427kcal (25-30kcal/kg) Protein g/kg: IBW Protein Calculated 81g (1g/kg) Fluid: ml 2022-2427ml (1ml/kcal) Nutritional Problem 1. Problem Problem Underweight related to Etiology unknown etiology, energy imbalance aeb Signs/Symptoms: BMI 18.6, BMI 17.4 using pt report UBW, moderate fat/ muscle depletion, thin built and mild protein calorie malnutrition noted in H&P Intervention/Recommendation Comments [facility]. [facility]. Pt expressed disatisfaction with pureed meals. RD explained current ground diet order. Pt noted with few teeth intact. Diet order at [facility]: mech soft, finely chopped, KB . 2. Recommend Boost BID for additional kcal and prot, promote weight gain. Expected Outcomes/Goals Expected Outcomes/Goals 1. PO intake to meet 100% of estimated nutritional needs. 2. Weight trend towards IBW. Physician Parameters for PEM Serum Albumin (g/dl) 3.5 - 5.0 (Normal)
[2016-09-04] MEDS: Artificial Tear Ophth Oint 3.5 Gm Tube EACH EYE SCH ×2 (08:29→16:25)
[2016-09-04] MEDS: Multivitamin w/ Minerals Tab PO SCH (08:30)
--- NOTE | 2016-09-04 11:08 | Internal Medicine Prog Note ---
Internal Medicine Subjective - Subjective Service Date: 09/04/16 Patient is:: awake Patient Complaints of:: congestion Per staff patient has:: no adverse event Internal Medicine Objective - Results Result Diagrams: 08/08/16 15:55 08/08/16 15:55 Recent Labs: Laboratory Last Values WBC 7.3 Th/cmm (4.8-10.8) 08/08/16 15:55 RBC 3.82 Mil/cmm (3.80-5.80) 08/08/16 15:55 Hgb 10.7 gm/dL (12.6-17.4) L 08/08/16 15:55 Hct 32.4 % (39.0-49.0) L 08/08/16 15:55 MCV 84.8 fl (80-99) 08/08/16 15:55 MCH 28.1 pg (27.0-31.0) 08/08/16 15:55 MCHC Differential 33.1 pg (28.0-36.0) 08/08/16 15:55 RDW 16.1 % (11.5-20.0) 08/08/16 15:55 Plt Count 305 Th/cmm (150-400) 08/08/16 15:55 MPV 7.6 fl 08/08/16 15:55 Neutrophils % 63.0 % (40.0-80.0) 08/08/16 15:55 Lymphocytes % 20.2 % (20.0-50.0) 08/08/16 15:55 Monocytes % 13.4 % (2.0-10.0) H 08/08/16 15:55 Eosinophils % 2.8 % (0.0-5.0) 08/08/16 15:55 Basophils % 0.6 % (0.0-2.0) 08/08/16 15:55 PT 10.5 SECONDS (9.5-11.5) 08/08/16 15:55 INR 1.01 (0.5-1.4) 08/08/16 15:55 PTT (Actin FS) 25.1 SECONDS (26.0-38.0) L 08/08/16 15:55 Sodium 136 mEq/L (136-145) 08/08/16 15:55 Potassium 4.1 mEq/L (3.5-5.1) 08/08/16 15:55 Chloride 107 mEq/L (98-107) 08/08/16 15:55 Carbon Dioxide 25.6 mEq/L (21.0-31.0) 08/08/16 15:55 Anion Gap 7.5 (7.0-16.0) 08/08/16 15:55 BUN 24 mg/dL (7-25) 08/08/16 15:55 Creatinine 0.6 mg/dL (0.7-1.3) L 08/08/16 15:55 Est GFR ( Amer) > 60.0 ml/min (>90) 08/08/16 15:55 Est GFR (Non-Af Amer) > 60.0 ml/min 08/08/16 15:55 BUN/Creatinine Ratio 40.0 08/08/16 15:55 Glucose 97 mg/dL (70-105) 08/08/16 15:55 Calcium 9.5 mg/dL (8.6-10.3) 08/08/16 15:55 Total Bilirubin 0.3 mg/dL (0.3-1.0) 08/08/16 15:55 AST 19 U/L (13-39) 08/08/16 15:55 ALT 18 U/L (7-52) 08/08/16 15:55 Alkaline Phosphatase 90 U/L (34-104) 08/08/16 15:55 Troponin I 0.05 ng/mL (0.01-0.05) 08/08/16 15:55 Total Protein 6.6 gm/dL (6.0-8.3) 08/08/16 15:55 Albumin 3.6 gm/dL (4.2-5.5) L 08/08/16 15:55 Globulin 3.0 gm/dL 08/08/16 15:55 Albumin/Globulin Ratio 1.2 (1.0-1.8) 08/08/16 15:55 Triglycerides 68 mg/dL (<150) 08/08/16 15:55 Cholesterol 187 mg/dL (<200) 08/08/16 15:55 LDL Cholesterol Direct 104 mg/dL (75-193) 08/08/16 15:55 HDL Cholesterol 76 mg/dL (23-92) 08/08/16 15:55 TSH 0.90 uIU/ml (0.34-5.60) 08/08/16 15:55 Urine Source CLEAN C 08/08/16 17:00 Urine Color YELLOW 08/08/16 17:00 Urine Clarity CLEAR (CLEAR) 08/08/16 17:00 Urine pH 6.0 08/08/16 17:00 Ur Specific Barker 1.030 (1.005-1.030) 08/08/16 17:00 Urine Protein NEGATIVE mg/dL (NEGATIVE) 08/08/16 17:00 Urine Glucose (UA) NEGATIVE mg/dL (NEGATIVE) 08/08/16 17:00 Urine Ketones NEGATIVE mg/dL (NEGATIVE) 08/08/16 17:00 Urine Blood NEGATIVE (NEGATIVE) 08/08/16 17:00 Urine Nitrate NEGATIVE (NEGATIVE) 08/08/16 17:00 Urine Bilirubin NEGATIVE (NEGATIVE) 08/08/16 17:00 Urine Urobilinogen 0.2 E.U./dL (0.2 - 1.0) 08/08/16 17:00 Ur Leukocyte Esterase NEGATIVE (NEGATIVE) 08/08/16 17:00 Urine RBC 0-1 /hpf (0-5) 08/08/16 17:00 Urine WBC 0-2 /hpf (0-5) 08/08/16 17:00 Ur Epithelial Cells FEW /lpf (FEW) 08/08/16 17:00 Urine Bacteria OCCASIONAL /hpf (NONE SEEN) 08/08/16 17:00 Urine Mucus FEW /lpf (FEW) 08/08/16 17:00 Valproic Acid 72.1 ug/mL (50.0-100.0) 08/28/16 12:05 RPR NONREACTIVE (NONREACTIVE) 08/08/16 15:55 - Physical Exam Vitals and I&O: Vital Signs Temp 97.6 F 09/04/16 06:17 Pulse 68 09/04/16 06:17 Resp 20 09/04/16 06:17 BP 125/71 09/04/16 06:17 Pulse Ox 99 09/04/16 06:17 Intake & Output 09/03/16 09/04/16 09/04/16 18:59 06:59 18:59 Intake Total 1120 Balance 1120 Intake: Oral 1120 Other: # Voids 3 # Bowel Movements 1 Active Medications: Current Medications Acetaminophen (Tylenol) 650 mg PO Q6H PRN PRN Reason: Pain (Mild) Stop: 10/22/16 10:16 Al Hydrox/Mg Hydrox/Simethicone (Maalox) 30 ml PO Q6H PRN PRN Reason: Dyspepsia Stop: 10/07/16 18:42 Last Admin: 08/24/16 22:59 Dose: 30 ml Artificial Tears (Lubrifresh Ophth Oint) 1 appl EACH EYE BID MAURO Stop: 10/08/16 16:59 Last Admin: 09/04/16 08:29 Dose: Not Given Ascorbic Acid (Vitamin C) 500 mg PO DAILY MAURO Stop: 10/08/16 08:59 Last Admin: 09/04/16 08:30 Dose: 500 mg Benzocaine/Menthol (Cepacol) 1 agustin MM Q4HR PRN PRN Reason: Sore Throat Stop: 10/08/16 15:09 Last Admin: 08/14/16 16:39 Dose: 1 agustin Divalproex Sodium (Depakote Sprinkle) 500 mg PO Q12HR MAURO PRN Reason: Protocol Stop: 10/24/16 20:59 Last Admin: 09/04/16 08:30 Dose: 500 mg Docusate Sodium (Colace) 100 mg PO DAILY MAURO Stop: 10/08/16 08:59 Last Admin: 09/04/16 08:30 Dose: 100 mg Ibuprofen (Motrin) 600 mg PO TID PRN PRN Reason: Pain (Mild) Stop: 10/07/16 18:38 Last Admin: 08/27/16 08:57 Dose: 600 mg Lorazepam (Ativan) 0.5 mg PO Q4HR PRN; Protocol PRN Reason: Anxiety Stop: 10/07/16 18:50 Last Admin: 08/27/16 08:50 Dose: 0.5 mg Magnesium Hydroxide (Milk Of Magnesia) 30 ml PO HS PRN PRN Reason: Constipation Stop: 10/07/16 18:42 Quetiapine Fumarate (Seroquel) 300 mg PO HS MAURO PRN Reason: Protocol Stop: 11/02/16 20:59 Last Admin: 09/03/16 20:47 Dose: 300 mg Risperidone (Risperdal) 1 mg PO BID MAURO PRN Reason: Protocol Stop: 11/02/16 10:34 Last Admin: 07/06/17 08:30 Dose: 1 mg Zinc Sulfate (Zinc Sulfate) 220 mg PO DAILY MAURO Stop: 10/08/16 08:59 Last Admin: 09/04/16 08:30 Dose: 220 mg Zolpidem Tartrate (Ambien) 5 mg PO HS PRN PRN Reason: Insomnia Stop: 10/07/16 18:38 Last Admin: 08/12/16 23:15 Dose: 5 mg General: alert HEENT: NC/AT, PERRLA Neck: Supple Lungs: CTAB Cardiovascular: RRR, Normal S1, Normal S2, without murmur Abdomen: soft, non-tender, non-distended, positive bowel sound Extremities: excoriation, contracture, cyanosis, atrophy Neurological: no change Internal Medicine Assmt/Plan - Assessment Assessment: Anemia, low albumin mild protein-calorie malnutrition, sore throat gait instability thin built dry eyes mrsa nare possible bacteremia possible contamination - Plan Plan: artificial tears monitor for safety cpm Nutritional Asmnt/Malnutr-PDOC - Dietary Evaluation Malnutrition Findings (Please click <Entered> for more info): Nutritional Asmnt/Malnutrition Start: 08/12/16 12: 24 Text: Status: Complete Freq: Document 08/12/16 12:24 GSUN (Rec: 08/12/16 12:47 [email or web address] [id number]) Nutritional Asmnt/Malnutrition Patient General Information Nutritional Screening Moderate Risk Screening Diagnosis Paranoia, schizophrenia Pertinent Medical Hx/Surgical Hx Anemia, thin built, smoker, drinker, mild protein calorie malnutrition, schizophrenia Subjective Information 66 year old male from SNF. Pt was talkative, questionable historian, difficult to understand, rambled on. Pt report UBW 128lb, CBW via bedscale 137.3lb. Pt appeared overall thin, moderate wasting to temporals, chest, clavicles. Pt stated he is always hungry. Pt with few teeth intact, complained of food being pureed. RD explained current diet order to be ground. Pt stated he tolerated hamburger and crackers at [facility] without difficulties. Diet order from [facility]: mech soft , finely chopped, KB. Avg PO intake 83% past 3 days, meeting nutritional needs. Current Diet Order/ Nutrition Support [facility] soft ground, KB Pertinent Medications Vitamin C, Colace, MOM, Seroquel, Zinc Sulfate Pertinent Labs Reviewed. Nutritional Hx/Data Height 6 ft Height (Calculated Centimeters) 182.9 Current Weight (lbs) 137 lb 11.2 oz Weight (Calculated Kilograms) 62.5 Weight (Calculated Grams) 69072.7 Usual body Weight (lbs) 128 % Stacy Body Weight 178 Weight Status Underweight GI Symptoms Food Allergies No Usual diet at home [facility]: mech soft , finely chopped, KB Skin Integrity/Comment: Devin Aggarwal. trade analyst: buttock potential pressure area. Current %PO Good (75-100%) Estimated Nutritional Goals Calories/Kcals/Kg IBW 178lb/80.9kg Kcals Calculated 2022-2427kcal (25-30kcal/kg) Protein g/kg: IBW Protein Calculated 81g (1g/kg) Fluid: ml 2022-2427ml (1ml/kcal) Nutritional Problem 1. Problem Problem Underweight related to Etiology unknown etiology, energy imbalance aeb Signs/Symptoms: BMI 18.6, BMI 17.4 using pt report UBW, moderate fat/ muscle depletion, thin built and mild protein calorie malnutrition noted in H&P Intervention/Recommendation Comments 1. Continue with mech ground KB diet. Pt expressed disatisfaction with pureed meals. RD explained current ground diet order. Pt noted with few teeth intact. Diet order at [facility]: mech soft, finely chopped, KB . 2. Recommend Boost BID for additional kcal and prot, promote weight gain. Expected Outcomes/Goals Expected Outcomes/Goals 1. PO intake to meet 100% of estimated nutritional needs. 2. Weight trend towards IBW. Physician Parameters for PEM Serum Albumin (g/dl) 3.5 - 5.0 (Normal)
--- NOTE | 2016-09-19 21:04 | Discharge Summary ---
DATE OF DISCHARGE: 09/04/2016 IDENTIFYING INFORMATION: The patient is a 66-year-old male. Initial evaluation done by Dr. Chowdhury. He came from [facility]. HISTORY OF PRESENT ILLNESS: The patient has a history of schizophrenia, has been noncompliant with his medication, has been feeling also that people are tracking him, talking about him, perseverating about them, and he is still very overwhelmed by people. He was paranoid, felt angry, has been unable to control himself. PAST PSYCHOTIC HISTORY: Schizophrenia. MEDICAL HISTORY: Sacral ulcers, perineal lacerations, left foot laceration, and anemia. Dr. Westfall took care of his medical condition. Diagnosis was anemia, low albumin, mild protein calorie malnutrition, ____ instability, low hemoglobin and hematocrit. COURSE IN THE HOSPITAL: The patient was continuing with medications, Seroquel 50 mg at bedtime. Depakote was added sprinkles 500 mg twice a day. He was also given artificial tears, ascorbic acid, Cepacol lozenges. Seroquel dose was increased over the course of his stay to 300 mg at bedtime and Risperdal had to be added after increasing ____ we had to go down than the dose ____ because of poor response and the ____ was at 1 mg twice a day. The patient progressively got better. He was sleeping well, eating well. He was no longer acting in a psychotic manner. He stabilized. He was no longer talking to himself. We felt he could be discharged to a lesser level of care. FINAL DIAGNOSIS: Chronic paranoid schizophrenia. MEDICAL DIAGNOSES: As per Dr. Westfall, low hemoglobin, status post resolved. The patient will be going to a new [facility] as [facility] will not accept him back. He will followup with the psychiatrist, primary care physician there. EXPECTED OUTCOME: Stable if the patient complies with the above. JOB# [id number]
== END 2016-09-04 16:45 | DRG 885 ==
LOC: ER 15:32 → GERO 17:00
PROVIDERS: ADMIT Psychiatry & Neurology Psychiatry; ATTEND Psychiatry & Neurology Psychiatry
DX: F20.0 Paranoid schizophrenia (principal); F03.90 Unspecified dementia, unspecified severity, without behavioral disturbance, psychotic disturbance, mood disturbance, and anxiety; E44.1 Mild protein-calorie malnutrition; Z68.1 Body mass index [BMI] 19.9 or less, adult; D64.9 Anemia, unspecified; R26.81 Unsteadiness on feet; R45.87 Impulsiveness; J02.9 Acute pharyngitis, unspecified; H04.129 Dry eye syndrome of unspecified lacrimal gland; H57.8 Other specified disorders of eye and adnexa; Z22.322 Carrier or suspected carrier of Methicillin resistant Staphylococcus aureus; Z88.0 Allergy status to penicillin; Z91.14 Patient's other noncompliance with medication regimen
CPT/HCPCS: 36415-UA; 71010-TC; 80053-TC; 80061-TC; 80164-TC; 81001-TC; 84443-TC; 84484-TC; 85025-TC; 85610-TC; 85730-TC; 86592-TC; 90899; 93005; G0410; J1200; J1630; J2060; Z7610